=== PATIENT | male | born 1970 | race Caucasian/White ===

== ENCOUNTER 2019-10-25 10:33 | Outpatient (CLI) | payer MEDICARE, MEDICAID, SELFPAY ==
--- NOTE | 2019-10-25 10:41 | USCV_ITS ---
Atif Ellis Age: 49 Gender: M : 1970 Exam Date: 10/25/2019 11:09 Ordering Phys: Kulwinder Blandon NP Technologist: Osvaldo Nicole Exam Location: [facility] [place] Indication: LEFT CALF PAIN HISTORY: Lower extremity pain. PROCEDURES: Examined were the left greater saphenous, common femoral, femoral, profunda, popliteal, posterior tibial veins, and peroneal trunk.. FINDINGS: All veins examined appear free of thrombus. No filling defects on color Doppler flow analysis. Vein flow and caliber vary with respiration. Increase in venous flow with augmentation. All veins appear compressible.. CONCLUSIONS No evidence of left lower extremity DVT. Tyrese Corbin MD (Electronically Signed) Final Date: 25 Oct 2019 16:58 S
== END 2019-10-25 10:34 | disposition home or self-care (01) ==
LOC: RAD 10:38
PROVIDERS: PCP Internal Medicine; Visit Provider Nurse Practitioner Family
DX: M79.662 Pain in left lower leg (principal)
CPT/HCPCS: 93971

== ENCOUNTER 2019-11-07 08:35 | Outpatient (CLI) | payer MEDICARE, MEDICAID, SELFPAY ==
--- NOTE | 2019-11-07 | US_ITS ---
WS: [id number] ULTRASOUND-GUIDED PARACENTESIS CLINICAL INFORMATION: ASCITES COMPARISON: None. Procedure Informed consent: The risks, benefits, and alternatives of the procedure were discussed with the cole ent. Verbal and written consent was obtained. Timeout: A timeout was performed to confirm the correct patient, procedure, and site. Preparation: A suitable skin site was identified. The patient was prepped and draped in usual sterile fashion. Lidocaine 1% was used for local anesthesia. Catheter: 4 [place] One-step Yueh catheter. Side: Right Lower quadrant. Fluid Volume: 4300 ml Color: Cloudy yellow 50 cc sent for requested diagnostic tests. Complications: None. Patient disposition: Discharged from the department in stable condition. US/US paracentesis abd w [id number] IMPRESSION: Uncomplicated ultrasound-guided paracentesis. Removal of 4300 cc cloudy yellow fluid
[2019-11-07 09:14] LABS: INR 1.44 (0.8-1.2)
[2019-11-07 09:35] VITALS: BP 139/76; PULSE 75; RESP 18; TEMP 36.8; O2SAT 97
[2019-11-07 13:14] LABS: Body Fluid Polynuclear #Cells 0.025 10^3/uL; Body Fluid WBC 250 /uL; Monocytes # Body Fluid 0.225 10^3/uL; RBC, Body Fluid 0 10^3/uL (0-0)
[2019-11-07 13:21] LABS: Apprearance, Body Fluid CLEAR (CLEAR); Color, Body Fluid YELLOW (PALE YELLOW)
[2019-11-07 13:22] LABS: PATH Referral YES
[2019-11-07 17:50] LABS: Albumin Peritoneal Fluid 0.7 g/dL; Total Protein Peritoneal Fluid 1.2 g/dL
== END 2019-11-07 08:36 | disposition home or self-care (01) ==
LOC: RAD 08:38
PROVIDERS: PCP Internal Medicine; Visit Provider Nurse Practitioner Family
DX: R18.8 Other ascites (principal)
CPT/HCPCS: 36415; 49083; 80500; 82042; 83615; 84157; 85610; 87070; 87075; 87205; 88112; 88305; 89050

== ENCOUNTER 2019-12-26 07:33 | Outpatient (CLI) | payer MEDICARE, MEDICAID, SELFPAY ==
--- NOTE | 2019-12-26 | US_ITS ---
WS: [id number] ULTRASOUND-GUIDED DIAGNOSTIC AND THERAPEUTIC PARACENTESIS Procedure, risks, and complications have been explained to the patient. Consent is obtained. Utilizing aseptic technique and 1% buffered lidocaine, a small dermatome was made through which a 5 F rench Yueh catheter was inserted. Approximately 5200 ml of cloudy yellow peritoneal fluid was obtaine d without difficulty. No complications encountered. Specimen collected for analysis as requested. US/US paracentesis abd w [id number] IMPRESSION: Uncomplicated paracentesis yielding 5200 ml of peritoneal fluid. Peritoneal fluid collected for analysis as requested.
[2019-12-26 08:36] VITALS: BMI 45.4
[2019-12-26 08:40] VITALS: BP 121/68; PULSE 81; RESP 18; TEMP 37.1; O2SAT 94
[2019-12-26 08:50] LABS: INR 1.45 (0.8-1.2)
[2019-12-26 09:49] LABS: Body Fluid WBC 252 /uL; RBC, Body Fluid 1 10^3/uL (0-0)
[2019-12-26 09:58] LABS: Apprearance, Body Fluid CLOUDY (CLEAR); Color, Body Fluid PALE YELLOW (PALE YELLOW)
[2019-12-26 09:59] LABS: PATH Referral YES
[2019-12-26 10:18] LABS: Albumin Peritoneal Fluid 0.5 g/dL
== END 2019-12-26 07:34 | disposition home or self-care (01) ==
PROVIDERS: Nurse Practitioner Family; PCP Internal Medicine; Visit Provider Internal Medicine
DX: R18.8 Other ascites (principal)
CPT/HCPCS: 36415; 49083; 80500; 82042; 83615; 84157; 85610; 87070; 87075; 87205; 88112; 88305; 89050

== ENCOUNTER 2020-01-06 18:20 | Observation (INO) | payer MEDICARE, MEDICAID, SELFPAY ==
[2020-01-06 18:30] VITALS: BP 123/71; PULSE 88; RESP 14; TEMP 37.2; O2SAT 95; BMI 45.8
--- NOTE | 2020-01-06 19:17 | XRR_ITS ---
PROCEDURE INFORMATION: Exam: XR Right Ribs Exam date and time: 01/06/2020 7:48 PM Age: 49 years old Clinical indication: Injury or trauma; Fall; Initial encounter; Rib area; Blunt trauma (contusions or hematomas); Injury date: 01/03/2020; Injury details: PT fell fri, per PT he has had right sided pain/shoulder pain since. PT states he had fluid removed from lungs x2 wks TECHNIQUE: Imaging protocol: XR Right ribs. Views: 2 views. COMPARISON: CR Chest 1 [place] [id number] 06/09/2019 11:23 AM FINDINGS: Bones/joints: No radiographically visible rib fracture. Moderate arthrosis right AC joint. Mild scoliosis of the spine with degenerative disease. Lungs: Minimal discoid atelectasis left lung base. Pleural space: No visible pneumothorax or pleural effusion. Soft tissues: No visible subcutaneous emphysema. XR/XR ribs RT 2V* [id number] IMPRESSION: 1. No radiographically visible rib fracture. 2. Minimal discoid atelectasis left lung base.
[2020-01-06 19:59] LABS: Basophils # 0.1 10^3/uL (0.0-0.1); Basophils % 0.8 %; Eosinophils # 0.5 10^3/uL (0.0-0.8); Hematocrit 32.8 % (42.0-52.0); Lymphocytes # 0.9 10^3/uL (0.8-4.8); Lymphocytes % 11.9 %; Mean Corpuscular HGB Conc 33.5 g/dL (30.0-36.0); Mean Corpuscular Hemoglobin 34.1 pg (28.0-34.0); Mean Corpuscular Volume 101.5 fL (80-94); Mean Platelet Volume 11.8 fL (7.4-10.4); Monocytes # 0.7 10^3/uL (0.2-0.9); Neutrophils # 4.98 10^3/uL (1.8-7.7); Neutrophils % 69.9 %; Nucleated Red Blood Cells % 0 %; Platelet Count 101 10^3/cmm (130-400); Red Blood Count 3.23 10^6/uL (4.1-5.3); Red Cell Distribution Width 13.7 % (12.1-15.1); White Blood Count 7.1 10^3/uL (4.0-10.0)
[2020-01-06 20:05] LABS: INR 1.48 (0.8-1.2)
[2020-01-06 20:11] LABS: Alanine Aminotransferase 27 U/L (0-41); Alkaline Phosphatase 88 IU/L (40-130); Aspartate Amino Transferase 52 U/L (0-40); Chloride 96 mmol/L (98-107); Sodium 130 mmol/L (136-145)
--- NOTE | 2020-01-06 20:15 | CTR_ITS ---
PROCEDURE INFORMATION: Exam: CT Chest With Contrast Exam date and time: 01/06/2020 8:22 PM Age: 49 years old Clinical indication: Abdominal pain; Generalized; Chest pain; On breathing; Patient HX: PT fell mon01/03/2020 and hit rock on RT side. PT states x2 wks ago he had fluid removed from his lungs. PT refused to raise RT arm above head, due to shoulder injury. PT has a HX of liver cirrhosis; Additional info: Trauma/pain TECHNIQUE: Imaging protocol: Computed tomography of the chest with intravenous contrast. Radiation optimization: All CT scans at this facility use at least one of these dose optimization techniques: automated exposure control; mA and/or kV adjustment per patient size (includes targeted exams where dose is matched to clinical indication); or iterative reconstruction. Contrast material: OMNIPAQUE 300; Contrast volume: 95 ml; Contrast route: INTRAVENOUS (IV); COMPARISON: [place] Abdom[place] [id number] 06/09/2019 1:09 PM RADIATION DOSE METRICS: Total DLP (mGy-cm): 2601.42 FINDINGS: Lungs: No visible acute interstitial or alveolar airspace disease. Minimal dependent atelectasis left lung base. Evidence of antecedent granulomatous disease. Pleural space: Small left pleural effusion. Heart: Unremarkable. No cardiomegaly. No pericardial effusion. Aorta: Unremarkable. No aortic aneurysm. Lymph nodes: Unremarkable. No enlarged lymph nodes. Bones/joints: No visible fracture. Degenerative disease and degenerative disc disease of the spine. Soft tissues: Gynecomastia. No visible soft tissue contusion or seroma/hematoma. Other findings: Obesity. Increased quantum mottle artifact which will degrade image quality in detail assessment. IMPRESSION: 1. Small left pleural effusion. 2. No visible fracture. 3. Gynecomastia. 4. Minimal dependent atelectasis left lung base. 5. Antecedent granulomatous disease. PROCEDURE INFORMATION: Exam: CT Abdomen And Pelvis With Contrast Exam date and time: 01/06/2020 8:22 PM Age: 49 years old Clinical indication: Abdominal pain; Generalized; Chest pain; On breathing; Patient HX: PT fell mon01/03/2020 and hit rock on RT side. PT states x2 wks ago he had fluid removed from his lungs. PT refused to raise RT arm above head, due to shoulder injury. PT has a HX of liver cirrhosis; Additional info: Trauma/pain TECHNIQUE: Imaging protocol: Computed tomography of the abdomen and pelvis with intravenous contrast. Radiation optimization: All CT scans at this facility use at least one of these dose optimization techniques: automated exposure control; mA and/or kV adjustment per patient size (includes targeted exams where dose is matched to clinical indication); or iterative reconstruction. Contrast material: OMNIPAQUE 300; Contrast volume: 95 ml; Contrast route: INTRAVENOUS (IV); COMPARISON: [place] Abdom[place] [id number] 06/09/2019 1:09 PM RADIATION DOSE METRICS: Total DLP (mGy-cm): 2601.42 FINDINGS: Liver: Cirrhosis of the liver. No visible hepatic mass or cystic structure. Gallbladder and bile ducts: No formed cholelithiasis. No gross intra or extrahepatic biliary ectasia. Pancreas: Pancreas unremarkable. No visible pancreatic ductal ectasia. Spleen: Splenomegaly. Adrenals: Normal. No mass. Kidneys and ureters: Stable simple cortical cysts bilateral kidneys. No follow-up recommended. Stable nonobstructing calyceal nephrolithiasis foci inferior pole left kidney. Dimensions 9 mm by 7 mm. Stomach and bowel: Unremarkable. No obstruction. No mucosal thickening. Appendix: No evidence of appendicitis. Intraperitoneal space: Moderately large intraperitoneal ascites. Vasculature: Evidence of portal venous hypertension. Varices. The abdominal aorta is nonaneurysmal. Mild arterial sclerotic disease. Lymph nodes: No visible active mesenteric or retroperitoneal lymphadenopathy. Bladder: Unremarkable as visualized. Reproductive: Unremarkable as visualized. Bones/joints: No visible acute osseous abnormality. No visible fracture. Degenerative disease of the spine. Soft tissues: No visible subcutaneous contusion or seroma/hematoma within the field of view. Other findings: Obesity. Increased quantum mottle artifact which will degrade image quality in detail assessment. CT/CT chest abd pel w con* IMPRESSION: 1. Cirrhosis of the liver with portal hypertension and varices. 2. Splenomegaly. 3. Moderately large intraperitoneal ascites. 4. Left nephrolithiasis stable. Radiation Dose CTDIVOL = (mGy): DLP = 2601.42~2601.42 (mGy-cm)
--- NOTE | 2020-01-06 20:15 | W.ED.FALL ---
HPI - Fall General: Chief Complaint: Fall Stated Complaint: FALL Time Seen by Provider: 01/06/20 20:10 Source: patient and family Mode of arrival: ambulatory Limitations: no limitations History of Present Illness: HPI Narrative: Atif is a 49-year-old male who comes in complaining of right-sided flank pain. He states he fell on Monday and since that time has been having pain in the lower ribs in the right upper quadrant. Patient states that he is also retaining fluid from his liver disease. He denies any head injury or headache. He states he rolled his ankle and tripped and fell. He denies any injury to his back, other extremities, his head or neck. Associated symptoms-after fall: Reports abdominal pain and chest pain; Denies confusion, difficulty walking, headache(s), hematuria, lightheadedness, neck pain or vertigo Review of Systems Const: Denies: fever(s), chills, body aches, fatigue, malaise or diaphoresis Eyes: Denies: change in vision, blurry vision, blind spots, photophobia, eye discharge or eye redness ENMT: Denies: throat pain, odynophagia, hoarseness, swelling of lips/tongue, oral sores, ear or mastoid pain, ear discharge, change in hearing or nasal discharge Card: Reports: chest pain; Denies: palpitations, irregular heart rhythm, edema, lightheadedness, syncope, pre-syncope, dyspnea on exertion or orthopnea Resp: Denies: dyspnea, productive cough, non-productive cough, wheezing, hemoptysis or chest congestion GI: Reports: abdominal pain; Denies: nausea, vomiting, hematemesis, coffee ground emesis, heartburn, diarrhea, constipation, GI cramping, hematochezia or melena : Denies: flank pain, dysuria, urinary frequency, urinary urgency or hematuria Musc: Denies: neck pain, back pain, extremity pain, extremity swelling, joint pain, joint swelling, joint redness, joint warmth or joint stiffness Skin/Breast: Denies: rash, pruritus, erythema, skin tenderness or jaundice Neuro: Denies: headache(s), numbness in extremities, weakness in extremities, sensory changes, lack of coordination, difficulty walking, dizziness, vertigo, confusion, Slurred speech present or seizure-like activity Quinn/Lymph: Denies: easy bruising, easy bleeding, petechiae, purpura or enlarged lymph nodes All/Imm: Denies: urticaria, throat swelling, tongue swelling, facial swelling or acute wheezing PFSH ED PFSH: Medical History Degenerative disc disease Depression DM type 2 (diabetes mellitus, type 2) Hyperlipidemia Hypertension Liver cirrhosis Migraines Obstructive sleep apnea Physical Exam Const: COMMON NORMALS: no acute distress, patient oriented x3, no limitations, healthy appearing and well nourished GENERAL APPEARANCE: cooperative, well kempt and well developed HENMT: COMMON NORMALS: normocephalic, atraumatic, external ears normal, EAC's normal and Normal external nose present HEAD & SCALP: normal to inspection, normocephalic and atraumatic FACE & SINUS: normal facial exam and face symmetric NOSE: Normal external nose present and Normal nares present EXTERNAL EAR: Yes external ears normal EXTERNAL AUDITORY CANAL: EAC's normal MOUTH: Normal oral and palatal mucosa present, lip normal and tongue normal Eye: COMMON NORMALS: Equal, round and reactive pupils present and conjunctivae normal GENERAL EYE: appearance normal, both eyes and all related structures ALIGNMENT: Yes alignment normal PERIORBITAL: periorbital findings normal EYELID: eyelids normal CONJUNCTIVA: Yes conjunctivae normal SCLERA: sclerae normal PUPIL: Yes Equal, round and reactive pupils present Neck/C-Spine: COMMON NORMALS: full ROM, no lymphadenopathy, supple, no meningeal signs and no JVD GENERAL: Yes normal visual inspection and Yes trachea midline Chest: COMMONS NORMALS: normal inspection of the chest and normal palpation of entire chest wall Resp: COMMON NORMALS: normal respiratory effort, No retractions and No use of accessory muscles EFFORT & INSPECTION: Yes able to speak in complete sentences and Yes symmetric chest movement AUSCULTATION: no crackles, no rales, no rhonchi and no wheezes Cardio: COMMON NORMALS: no JVD, regular rate, regular rhythm, S1 normal heart sound present and S2 normal heart sound present RATE: regular rate RHYTHM: regular rhythm HEART SOUNDS: S1 normal heart sound present, S2 normal heart sound present, no click, no gallops, no murmurs, no rubs and abnormal split S2 GI: COMMON NORMALS: Soft to palpation and No hepatosplenomegaly present PALPATION: Yes Soft to palpation, Yes Tenderness to palpation present (GI) (Right-sided, mild), No Guarding due to palpation present (GI), No Rigid due to palpation, Yes No hepatosplenomegaly present, No Hernia present, No Palpable mass present and No Pulsatile mass present : COMMON NORMALS: Yes no CVA tenderness BLADDER/KIDNEY EXAM: Yes no CVA tenderness Back/Pelvis: COMMON NORMALS: no CVA tenderness, thoracic and lumbar spine normal to inspection, no thoracic nor lumbar tenderness and thoraco-lumbar ROM normal Extremity: COMMON NORMALS: normal to inspection, full ROM, capillary refill normal, no joint enlargement, no clubbing, cyanosis or edema and no calf tenderness Neuro: COMMON NORMALS: patient oriented x3, CN's II-XII intact bilaterally, moves all extremities, no focal motor deficits and no sensory deficits noted MENINGEAL SIGNS: Yes no meningeal signs SPEECH: speech normal Psych: COMMON NORMALS: mental status grossly normal, Normal thought process present, cooperative, normal affect, speech normal and activity/motor behavior normal APPEARANCE: Yes well kempt SPEECH: Yes normal speech THOUGHT PROCESS: Normal thought process present Skin: COMMON NORMALS: no rashes or lesions noted, turgor normal, no jaundice, no petechiae and no mottling GENERAL SKIN EXAM: no rashes or lesions noted and turgor normal Course Vital Signs: Vital signs: Vital Signs Temperature 99.0 F 01/06/20 18:30 Pulse Rate 88 01/06/20 18:30 Respiratory Rate 14 01/06/20 18:30 Blood Pressure 123/71 01/06/20 18:30 Pulse Oximetry 95 01/06/20 18:30 - Fall Lab Data: Labs: Lab Results 01/06/20 01/06/20 01/06/20 Range/Units 19:50 19:50 19:50 WBC 7.1 (4.0-10.0) 10^3/ uL RBC 3.23 L (4.1-5.3) 10^6/u L Hgb 11.0 L (11.7-16.6) g/dL Hct 32.8 L (42.0-52.0) % MCV 101.5 H (80-94) fL MCH 34.1 H (28.0-34.0) pg MCHC 33.5 (30.0-36.0) g/dL RDW 13.7 (12.1-15.1) % Plt Count 101 L (130-400) 10^3/c mm MPV 11.8 H (7.4-10.4) fL Neut % (Auto) 69.9 % Lymph % (Auto) 11.9 % [place] % (Auto) 10.0 % Eos % (Auto) 7.0 % Baso % (Auto) 0.8 % Neut # (Auto) 4.98 (1.8-7.7) 10^3/u L Lymph # (Auto) 0.9 (0.8-4.8) 10^3/u L [place] # (Auto) 0.7 (0.2-0.9) 10^3/u L Eos # (Auto) 0.5 (0.0-0.8) 10^3/u L Baso # (Auto) 0.1 (0.0-0.1) 10^3/u L Nucleated RBC % (a uto) 0 % Nucleated RBCs # 0.0 /100WBC PT 18.40 H (10.5-13.3) SECO NDS INR 1.48 H (0.8-1.2) APTT (23.9-36.7) SECO NDS Sodium 130 L (136-145) mmol/L Potassium 4.3 (3.5-5.1) mmol/L Chloride 96 L (98-107) mmol/L Carbon Dioxide 24 (22-29) mmol/L Anion Gap 14.3 (5-19) BUN 14 (6-20) mg/dL Creatinine 1.6 H (0.7-1.2) mg/dL GFR Calculation 46.0 L (90-130) mL/min Glucose 451 H (65-115) mg/dL Calculated Osmolal ity 286 (285-295) mOsm/k g Calcium 8.4 L (8.5-10.5) mg/dL Total Bilirubin 2.9 H (0.15-1.2) mg/dL AST 52 H (0-40) U/L ALT 27 (0-41) U/L Alkaline Phosphata se 88 (40-130) IU/L Total Protein 8.2 (6.6-8.7) g/dL Albumin 2.9 L (3.5-5.2) g/dL Globulin 5.3 H (1.3-4.6) g/dL 01/06/20 Range/Units 19:50 WBC (4.0-10.0) 10^3/ uL RBC (4.1-5.3) 10^6/u L Hgb (11.7-16.6) g/dL Hct (42.0-52.0) % MCV (80-94) fL MCH (28.0-34.0) pg MCHC (30.0-36.0) g/dL RDW (12.1-15.1) % Plt Count (130-400) 10^3/c mm MPV (7.4-10.4) fL Neut % (Auto) % Lymph % (Auto) % [place] % (Auto) % Eos % (Auto) % Baso % (Auto) % Neut # (Auto) (1.8-7.7) 10^3/u L Lymph # (Auto) (0.8-4.8) 10^3/u L [place] # (Auto) (0.2-0.9) 10^3/u L Eos # (Auto) (0.0-0.8) 10^3/u L Baso # (Auto) (0.0-0.1) 10^3/u L Nucleated RBC % (a uto) % Nucleated RBCs # /100WBC PT (10.5-13.3) SECO NDS INR (0.8-1.2) APTT 35.6 (23.9-36.7) SECO NDS Sodium (136-145) mmol/L Potassium (3.5-5.1) mmol/L Chloride (98-107) mmol/L Carbon Dioxide (22-29) mmol/L Anion Gap (5-19) BUN (6-20) mg/dL Creatinine (0.7-1.2) mg/dL GFR Calculation (90-130) mL/min Glucose (65-115) mg/dL Calculated Osmolal ity (285-295) mOsm/k g Calcium (8.5-10.5) mg/dL Total Bilirubin (0.15-1.2) mg/dL AST (0-40) U/L ALT (0-41) U/L Alkaline Phosphata se (40-130) IU/L Total Protein (6.6-8.7) g/dL Albumin (3.5-5.2) g/dL Globulin (1.3-4.6) g/dL Discharge Plan Discharge Condition: Good Prescriptions: No Action furosemide 40 mg Tablet 40 mg PO BID RF: 0 potassium chloride 10 mEq Capsule, Extended Release 10 meq PO BID RF: 0 cetirizine 10 mg Tablet 10 mg PO DAILY RF: 0 spironolactone 100 mg Tablet 100 mg PO DAILY RF: 0 Vitamin B-1 100 mg Tablet 100 mg PO DAILY RF: 0 ciprofloxacin HCl 500 mg Tablet 500 mg PO DAILY RF: 0 liothyronine 5 mcg Tablet 10 mcg PO DAILY RF: 0 pantoprazole 40 mg Tablet,Delayed Release (Dr/Ec) 40 mg PO BID RF: 0 levothyroxine 125 mcg Tablet 125 mcg PO DAILY RF: 0 gabapentin 300 mg Capsule 300 mg PO TID RF: 0 hydroxyzine HCl 25 mg Tablet 25 mg PO DAILY PRN (Reason: Anxiety) RF: 0 Vitamin D2 1,250 mcg (50,000 unit) Capsule 1,250 mcg PO Q7D RF: 0 Xifaxan 550 mg Tablet 550 mg PO BID RF: 0 Tresiba FlexTouch U-200 200 unit/mL (3 mL) Insulin Pen 18 unit SUBCUT TID RF: 0 Coding Level of Care Code ED Business Operations Director for Chg Fwd Exam Comprehensive
[2020-01-06 20:37] LABS: Blood Urea Nitrogen 14 mg/dL (6-20); Calcium 8.4 mg/dL (8.5-10.5); Carbon Dioxide 24 mmol/L (22-29); Total Bilirubin 2.9 mg/dL (0.15-1.2); Total Protein 8.2 g/dL (6.6-8.7)
[2020-01-06 20:43] LABS: Partial Thromboplastin Time 35.6 SECONDS (23.9-36.7)
[2020-01-06 20:47] LABS: Anion Gap 14.3 (5-19); Potassium 4.3 mmol/L (3.5-5.1)
[2020-01-06 20:50] LABS: Albumin Level 2.9 g/dL (3.5-5.2); Globulin 5.3 g/dL (1.3-4.6)
[2020-01-06 21:00] LABS: Glucose 451 mg/dL (65-115); Osmolality Calculated 286 mOsm/kg (285-295)
[2020-01-06 22:15] VITALS: RESP 16
[2020-01-06] MEDS: ondansetron 2 mg/ML SDV 2 mL 4 MG IVP (22:15)
[2020-01-06] MEDS: morphine 4 mg/mL SDV 1 mL IVP (22:15)
[2020-01-06] MEDS: iohexol 300 mg/mL 100 mL Btl IV (22:26)
--- NOTE | 2020-01-06 23:25 | PC.NURSE ---
PT WAITING CT, STATES HE IS HUNGRY. EXPLAINED TO PT HE CAN NOT EAT AT THIS TIME. PT VERBALIZED UNDERSTANDING.
--- NOTE | 2020-01-06 23:31 | P.HP_ITS ---
Providers/Chief Complaint Primary Care Provider: Penny Vali MD Chief Complaint: sob History of Present Illness Atif Ellis is a 49 year old male who requires recurrent abdominal paracentesis for nonalcoholic fatty liver cirrhosis coming in today for chief complaint of pain on inspiration and right upper quadrant pain. Patient is stating that on Monday he lost his balance, twisted his foot, fell and hit his right side of his body on the floor, since then he has been experiencing pain in his rib cage which gets worse on deep inspiration. Today he decided to come to the hospital because of worsening pleuritic chest pain. He has been on chronic antibiotic therapy since May 2019. I have checked his previous records, his cultures were negative, at home he does not check his temperature but endorses subjective fevers, is at the bedside who denies temperature above 100.4 (at home it stays around 98-99F). Patient is denying nausea, vomiting, diarrhea, chest pain, cough, sputum production. He is denying abdominal pain or association of pain with the food intake, he is denying change in his sleep c ycle. He has been evaluated by communication professor, he is not a candidate for liver transplant because of poorly controlled type 2 diabetes. He has been requiring recurrent paracentesis, his last paracentesis was 2 weeks ago (5.5 L was drained). Diagnosis in the ER revealed meld score 24 Normal hemodynamics, no rib fractures were identified on imaging Hospitalist services been requested to admit him for worsening pleuritic chest pain and recurrent ascites Review of Systems Const: Reports: chills, body aches, change in appetite, fatigue and malaise; Denies: fever(s) Eyes: Denies: change in vision ENMT: Denies: throat pain Card: Reports: dyspnea on exertion and orthopnea; Denies: chest pain or swelling of feet/ankles Resp: Reports: dyspnea and pain on inspiration; Denies: non-productive cough GI: Reports: abdominal pain and diarrhea; Denies: nausea, vomiting or constipation : Denies: flank pain, difficulty urinating or change in urine stream Musc: Denies: neck pain Skin/Breast: Reports: rash, lesions, changes in skin color, striae, change in hair and breast mass Neuro: Denies: headache(s) Psych: Reports: anxiety and depression Endo: Denies: polyuria Quinn/Lymph: Reports: easy bruising, petechiae and purpura All/Imm: Denies: urticaria Medications/Allergies Home Medications Medication Instructions Recorded Confirmed Last Taken Type cetirizine 10 mg PO DAILY 12/26/19 12/26/19 Unknown History ciprofloxacin HCl 500 mg PO DAILY 12/26/19 12/26/19 Unknown History ergocalciferol (vitamin D2) 1,250 mcg PO Q7D 12/26/19 12/26/19 Unknown History [Vitamin D2] furosemide 40 mg PO BID 12/26/19 12/26/19 Unknown History gabapentin 300 mg PO TID 12/26/19 12/26/19 Unknown History hydroxyzine HCl 25 mg PO DAILY PRN 12/26/19 12/26/19 Unknown History insulin degludec [Tresiba 18 unit SUBCUT TID 12/26/19 12/26/19 Unknown History FlexTouch U-200] levothyroxine 125 mcg PO DAILY 12/26/19 12/26/19 Unknown History liothyronine 10 mcg PO DAILY 12/26/19 12/26/19 Unknown History pantoprazole 40 mg PO BID 12/26/19 12/26/19 Unknown History potassium chloride 10 meq PO BID 12/26/19 12/26/19 Unknown History rifaximin [Xifaxan] 550 mg PO BID 12/26/19 12/26/19 Unknown History spironolactone 100 mg PO DAILY 12/26/19 12/26/19 Unknown History thiamine HCl (vitamin B1) [Vitamin 100 mg PO DAILY 12/26/19 12/26/19 Unknown History B-1] Allergies Allergy/AdvReac Type Severity Reaction Status Date / Time milk Allergy Unknown Verified 12/26/19 08:25 mushroom Allergy ALGY-Anaphy Verified 12/26/19 08:25 laxis PFSH Acute PFSH: Medical History Abnormal colonoscopy 2015 Small sigmoid adenomatous polyp 3 mm Rectal focal hyperplastic and focal adenomatous changes Alcohol abuse COPD (chronic obstructive pulmonary disease) Coronary artery disease Degenerative disc disease Depression DM type 2 (diabetes mellitus, type 2) Complicated with peripheral neuropathy Former smoker Gastric ulcer Acquired blood transfusion 2016 Hepatic encephalopathy Hyperlipidemia Hypertension Hypothyroidism Iron deficiency anemia Lactose intolerance Liver cirrhosis Migraines Obstructive sleep apnea PHT (portal hypertension) SBP (spontaneous bacterial peritonitis) On ciprofloxacin and Flagyl chronic therapy since 05/2019 however growth cultures negative from that admission, patient was discharged from the hospital around [place] and antibiotics were started empirically Splenomegaly Surgical History H/O esophagogastroduodenoscopy Cauterization of gastric ulcer 2019 colonoscopy in 2015 H/O toe surgery Social History Smoking and tobacco status: former smoker Alcohol intake: former Substance/Drug Use: never Household members: family Housing: House Marital status: Vitals/I&O/Wt Last Vital Signs Temp 99.0 F 01/06/20 18:30 Pulse 88 01/06/20 18:30 Resp 16 01/06/20 22:15 BP 123/71 01/06/20 18:30 Pulse Ox 95 01/06/20 18:30 Weight last 48 hrs Weight 140.614 kg Physical Exam Narrative: EXAM NARRATIVE: Head to toe examination Patient has icteric appearance Morbidly obese Currently saturating well, no active respiratory distress, has pleuritic chest pain Dixon's sign negative Multiple petechiae of abdominal wall, abdomen is soft, nontender, distended, ascites present, splenomegaly, loss of male pattern hair, gynecomastia Asterixis negative Alert oriented x3 GCS 15 Meld score 24 S1, S2 did not appreciate any murmur, Adequate breath sounds bilaterally with diminished airflow at the bases especially at the left side No lower extremity edema gangrene ulcer Appropriate mood and affect EOMI, PERRLA Neurologically nonfocal exam Pertinent negatives: No local signs of peritonitis No signs of sepsis No signs of hepatic encephalopathy at this point Data : 01/06/20 19:50 01/06/20 19:50 A&P Assessment and plan (1) Ascites of liver: Status: Acute (2) Liver cirrhosis: Status: Acute (3) DM type 2 (diabetes mellitus, type 2): Status: Acute (4) Jaundice: Status: Acute (5) Hyponatremia: Status: Acute (6) Chronic liver failure: Status: Acute (7) Splenomegaly: Status: Acute (8) PHT (portal hypertension): Status: Acute (9) Obstructive sleep apnea: Status: Acute (10) Thrombocytopenia: Status: Acute (11) Pleuritic chest pain: Status: Acute Additional A&P Information Pleuritic right upper quadrant pain No signs of rib fracture No signs of lung consolidation No acute signs of cholecystitis Patient is not septic No signs of SBP clinically, abdomen is soft, tenderness around hepatic region, pleuritic in nature, I believe right upper quadrant pain is secondary to stretch of liver capsule because of worsening ascites requiring recurrent paracentesis. Review of previous cultures was done, his body fluid cultures were negative, I would switch his Cipro and Flagyl to ceftriaxone at this point Paracentesis in the morning, avoid DVT prophylaxis with anticoagulation, Recurrent ascites with chronic liver disease Decompensated liver cirrhosis with active jaundice I believe this is gradual deterioration of synthetic function of liver with poor albumin, high PT, meld score 24 Not a good candidate for TIPS Poor candidate for liver transplant because of poorly controlled type 2 diabetes I would increase his Lasix to 60 mg twice a day continue same dose of spironolactone, continue rifaximin, lactulose No active asterixis or hepatic encephalopathy Check ammonia level Hyponatremia secondary to hypervolemia due to portal hypertension and hyperglycemia Corrected sodium around normal Continue diuretics No neurological signs Portal hypertension No active variceal bleeding Hemoglobin stable Chronic kidney disease Monitor for development of hepato-renal syndrome His baseline creatinine seems to be around 1.4-1.6 If his creatinine is worsening might do a trial of holding diuretics and monitor for development of hepatorenal syndrome, also point to be noted is 5.5 L of fluid drained 2 weeks ago, I am not sure if he received albumin after that which might have contributed to worsening creatinine Obstructive sleep apnea, CPAP Thrombocytopenia secondary to portal hypertension, active petechia purpura of abdominal wall, holding anticoagulation DVT prophylaxis for now DVT prophylaxis SCDs Cardiac consistent carb diet Poorly controlled type 2 diabetes, I would start him on Lantus high-dose sliding scale, for now I would use NovoLog 20 units, will check hemoglobin A1c level Full code Attestations Medical Necessity Statement*: Patient needs therapeutic abdominal paracentesis for symptomatic pleuritic chest pain because of stretch of liver capsule, I am anticipating discharge in less than 48 hours, currently meld score 24, carries guarded prognosis, at risk of hepatorenal syndrome which carries poor prognosis Time Spent in Patient Care: (>than 50% of time spent in counselling and/or direct pt care on unit) . 60mins Coding Level of Care Code Acute Advanced Nursing Professor for Chg Fwd Diagnoses Ascites of liver R18.8 Liver cirrhosis K74.60 DM type 2 (diabetes mellitus, type 2) E11.9 Jaundice R17 Hyponatremia E87.1 Chronic liver failure K72.10 Splenomegaly R16.1 PHT (portal hypertension) K76.6 Obstructive sleep apnea G47.33 Thrombocytopenia D69.6 Pleuritic chest pain R07.81
[2020-01-07] VITALS (8 sets, daily range): BP systolic 119–149; BP diastolic 57–84; PULSE 72–87; RESP 17–22; TEMP 36.4–37; O2SAT 90–97
--- NOTE | 2020-01-07 01:00 | PC.NURSE ---
Patient arrived to floor from ER. Patient sitting on side of bed for assessment, see separate documentation. Patient reports pain to right lateral ABD. VS WNL. Nurse to continue to monitor.
--- NOTE | 2020-01-07 01:37 | US_ITS ---
WS: [id number] ULTRASOUND-GUIDED THERAPEUTIC AND DIAGNOSTIC PARACENTESIS Procedure, risks, and complications have been explained to the patient. Consent is obtained. Utilizing aseptic technique and 1% buffered lidocaine, a small dermatome was made through which a 5 F rench Yueh catheter was inserted. Approximately 4800 ml of cloudy yellow peritoneal fluid was obtaine d without difficulty. No complications encountered. US/US paracentesis abd w [id number] IMPRESSION: Uncomplicated paracentesis yielding 4800 ml of peritoneal fluid. Specimen collected for analysis as requested.
[2020-01-07 01:48] LABS: Glucose Point of Care 308 mg/dL (70-110)
[2020-01-07] MEDS: insulin glargine 100 units/1 mL 20 UNIT SUBCUT (02:12)
[2020-01-07 03:01] LABS: Glucose Point of Care 339 mg/dL (70-110)
[2020-01-07 05:31] LABS: Basophils # 0.1 10^3/uL (0.0-0.1); Basophils % 0.9 %; Eosinophils # 0.6 10^3/uL (0.0-0.8); Eosinophils % 8.7 %; Hematocrit 28.8 % (42.0-52.0); Hemoglobin 9.9 g/dL (11.7-16.6); Lymphocytes # 1.1 10^3/uL (0.8-4.8); Lymphocytes % 16.4 %; Mean Corpuscular HGB Conc 34.4 g/dL (30.0-36.0); Mean Corpuscular Hemoglobin 35.1 pg (28.0-34.0); Mean Corpuscular Volume 102.1 fL (80-94); Mean Platelet Volume 11.4 fL (7.4-10.4); Monocytes # 0.7 10^3/uL (0.2-0.9); Monocytes % 10.3 %; Neutrophils # 4.14 10^3/uL (1.8-7.7); Neutrophils % 63.5 %; Nucleated Red Blood Cells % 0 %; Platelet Count 94 10^3/cmm (130-400); Red Blood Count 2.82 10^6/uL (4.1-5.3); Red Cell Distribution Width 13.7 % (12.1-15.1); White Blood Count 6.5 10^3/uL (4.0-10.0)
[2020-01-07 06:09] LABS: Ammonia 91 umol/L (16-60)
[2020-01-07 06:11] LABS: Alanine Aminotransferase 23 U/L (0-41); Albumin Level 2.6 g/dL (3.5-5.2); Alkaline Phosphatase 76 IU/L (40-130); Anion Gap 11.1 (5-19); Aspartate Amino Transferase 44 U/L (0-40); Blood Urea Nitrogen 16 mg/dL (6-20); Calcium 9.1 mg/dL (8.5-10.5); Carbon Dioxide 27 mmol/L (22-29); Chloride 98 mmol/L (98-107); Globulin 4.7 g/dL (1.3-4.6); Glomerular Filtration Rate 42.9 mL/min (90-130); Glucose 296 mg/dL (65-115); Osmolality Calculated 281 mOsm/kg (285-295); Potassium 4.1 mmol/L (3.5-5.1); Sodium 132 mmol/L (136-145); Total Bilirubin 2.5 mg/dL (0.15-1.2); Total Protein 7.3 g/dL (6.6-8.7)
[2020-01-07 06:21] LABS: Glucose Point of Care 289 mg/dL (70-110)
[2020-01-07 06:40] LABS: Estmated Average Glucose 286; Hemoglobin A1C 11.6 % (4.0-6.0)
--- NOTE | 2020-01-07 06:41 | PC.NURSE ---
Shift Summary No acute events overnight. Patient put on CPap by RT. Patient tolerated well. Patient rested with eyes closed, even, non-labored breathing for the remainder of the night. No needs identified at this time. Nurse to continue to monitor.
[2020-01-07] MEDS: albumin 12.5 GM/250 ML VIAL IV (07:30)
[2020-01-07] MEDS: liothyronine 5 mcg Tablet 10 MCG PO (07:39)
[2020-01-07] MEDS: thiamine 100 mg Tablet PO (07:40)
[2020-01-07] MEDS: FUROsemide 40 mg Tablet 60 MG PO (07:41)
[2020-01-07] MEDS: potassium chloride ER 10 mEq Tablet PO (07:41)
[2020-01-07] MEDS: pantoprazole DR 40 mg Tablet PO (07:41)
[2020-01-07] MEDS: lactulose oral liq 20 gm/30 mL UDC 30 GM PO (07:43)
[2020-01-07] MEDS: spironolactone 25 mg Tablet 100 MG PO (07:44)
[2020-01-07] MEDS: levothyroxine 125 mcg Tablet PO (07:44)
[2020-01-07] MEDS: cefTRIAXone 1,000 MG in sodium chloride 0.9% (plus) 50 ML 100 MG IV (09:03)
[2020-01-07] MEDS: oxyCODONE 5 mg IR Tab/Cap PO (09:07)
[2020-01-07 10:54] LABS: Glucose Point of Care 247 mg/dL (70-110)
--- NOTE | 2020-01-07 11:05 | PC.CHAP ---
Pastoral Care Encounter/Spiritual Assessment Type of Contact [] Declined applications programmer visit [] Patient/Family/Request visit [] Outpatient visit [] Follow-up visit [] Physician referral [] Code/Alert [x] Routine visit [] Staff referral [] Actively dying [] Patient sleeping [] Family support [] [] Out of room [] Palliative care [] [x] Receiving care in room [] Pre-surgical visit [] Trauma [] Long length of stay [] ICU visit [] Other: Relational/Emotional Strength [x] Patient feels connected with others/family/visitors/staff [] Distress [] Loneliness/isolation [] Abandonment Spirituality of Patient [x] Person of Marissa [] Attends Lutheran of their Marissa x] Believes in Prayer [] Reads Bible or Worship materials [x] There are Spiritual issues to be addressed Assistant Construction Superintendent Interventions [x] Prayer [x] Active listening [x] Non-anxious presence [x] Spiritual/emotional support [] Crisis/trauma care [x] Spiritual counseling [] Bereavement support [] Provided bereavement packet [] Provided Bible/devotional materials [] Provided toy/stuffed animal, coloring book to patient or family member [] Provided Communion [] Anointing/[place] [] Salvation [x] Completed spiritual assessment [] Other: Impact on Illness or Injury [] Angry [] Fearful [] Anxious [] Often cries [] Exhaustion [] Unable to work [] Unable to attend yazidism [] Unable to walk/stand [] Unable to read [] Unable to drive [] Unable to eat/drink [] Unable to sleep [] Unable to be with family [] Patient intubated [] Other: Summary Lever lots of other health problems good attitude, going to able to home Time spent with patient 10 mins
[2020-01-07 12:15] LABS: Body Fluid WBC 219 /uL; RBC, Body Fluid 2 10^3/uL (0-0)
[2020-01-07 12:18] LABS: Apprearance, Body Fluid CLOUDY (CLEAR); Color, Body Fluid PALE YELLOW (PALE YELLOW)
--- NOTE | 2020-01-07 13:22 | P.DS_ITS ---
Discharge Providers Date of Admission: 01/07/20 00:01 Date of Discharge: January 07, 2020 Attending Provider at Admission: Mikal Farley MD Attending Provider at Discharge: Viri Harvey MD Consults: None Primary Care Provider: Penny Vail MD Diagnoses at Discharge Discharge Diagnosis (1) Ascites of liver: Status: Acute Problem details: -s/p paracentesis with removal of about 4.6 L. Had prior paracentesis about 2 weeks ago with removal of 5.2 L -Continue dual diuretics, rifaximin -Has prior history of SBP in 05/2019 and has been on empiric ciprofloxacin and Flagyl since; has been covered with ceftriaxone during hospital stay (2) Liver cirrhosis: Status: Chronic Problem details: -has known hx of liver cirrhosis with portal HTN and varices -is requiring more frequent paracentesis due to persistent ascites -not deemed an appropriate transplant candidate due to poorly controlled IDDM type II -follows up with [employer] [facility] [employer] supervisor in [place] but has had difficulty traveling there due to pain and with ongoing pandemic -MELD-Na score-23 with a 14-15% estimated 90-day mortality -ammonia-91, alert and oriented x 3; on lactulose -Coags noted with INR 1.48 Qualifiers: Hepatic cirrhosis type: unspecified hepatic cirrhosis Ascites presence: with ascites Qualified Code(s): K74.60 - Unspecified cirrhosis of liver; R18.8 - Other ascites (3) Jaundice: Status: Acute Problem details: -Due to liver cirrhosis -LFTs noted (4) DM type 2 (diabetes mellitus, type 2): Status: Chronic Problem details: -Complicated with peripheral neuropathy -Poorly controlled with A1c of 11.6 -Continue insulin regimen Qualifiers: Diabetes mellitus custodial insulin use: with custodial use Diabetes mellitus complication status: with neurologic complications Diabetes mellitus complication detail: with polyneuropathy Qualified Code(s): E11.42 - Type 2 diabetes mellitus with diabetic polyneuropathy; Z79.4 - long-term (current) use of insulin (5) Hyponatremia: Status: Acute Problem details: -Appears to be an intermittently chronic issue, sodium improved -Likely due to hypovolemia from underlying liver cirrhosis (6) Chronic liver failure: Status: Chronic Problem details: -As noted above Qualifiers: Hepatic coma status: without hepatic coma Qualified Code(s): K72.10 - Chronic hepatic failure without coma (7) Splenomegaly: Status: Chronic Problem details: -noted on imaging, mild (8) PHT (portal hypertension): Status: Chronic (9) Obstructive sleep apnea: Status: Chronic Problem details: -CPAP qhs (10) Thrombocytopenia: Status: Chronic Problem details: -Platelet count at baseline -No bleeding (11) Pleuritic chest pain: Status: Resolved Other Information Additional DC diagnoses/information: -Morbid obesity: BMI-46 kg/m2 -Hypothyroidism, continue thyroid replacement -HTN -Hyperlipidemia -CAD hx -GERD; on PPI; hx of bleeding gastric ulcer in 2017 -Chronic pain, DJD; pain control as needed -Anxiety/depression -Chronic macrocytic anemia; baseline Hg is around 10; due to liver cirrhosis but has had iron deficiency in the past -CKD stage 2-3; baseline Cr is around 1-1.6 Reason for Visit Reason for Visit: sob Hospital Course Hospital Course: Patient was admitted to the medical surgical floor and paracentesis requested secondary to moderately large ascites on imaging and patient's complaints of worsening shortness of breath and right upper quadrant pain. Paracentesis has been done with removal of approximately 5 L. He had a previous large-volume paracentesis approximately 2 weeks ago with removal of 5.2 L. All of this is due to liver cirrhosis secondary to nonalcoholic fatty liver disease. He follows up with a [employer] supervisor in [place] and reportedly is not a candidate for liver transplant because of poorly controlled insulin-dependent diabetes. His significant other provides full-time care for him. He reports feeling well following paracentesis and would like to go home today. Counseled on need to seek medical attention immediately should he have any worsening sym ptoms particularly in terms of worsening shortness of breath, nausea and vomiting, worsening abdominal discomfort or pain. He appears slightly jaundiced with noted LFT elevation. A1c is 11.6 reflecting poorly controlled diabetes. He was covered with insulin including mealtime insulin. Patient did receive some albumin. Discharge Summary: -Patient to follow-up with her primary care provider within 1 week Physical Exam Const: COMMON NORMALS: no acute distress and patient oriented x3 GENERAL APPEARANCE: cooperative and comfortable NUTRITIONAL APPEARANCE: obese morbidly obese ORIENTATION/CONSCIOUSNESS: Yes awake OTHER: -very pleasant HENMT: COMMON NORMALS: normocephalic, atraumatic, hearing grossly normal bilaterally and moist oral mucous membranes HEAD & SCALP: normocephalic and atraumatic Eye: COMMON NORMALS: Equal, round and reactive pupils present, EOMs intact bilaterally and conjunctivae normal CONJUNCTIVA: Yes conjunctivae normal PUPIL: Yes Equal, round and reactive pupils present Neck/C-Spine: COMMON NORMALS: full ROM GENERAL: Yes normal visual inspection and Yes trachea midline Resp: COMMON NORMALS: normal respiratory effort, No retractions, No use of accessory muscles and clear to auscultation bilaterally EFFORT & INSPECTION: Yes able to speak in complete sentences, Yes symmetric chest movement and No tachypneic AUSCULTATION: clear to auscultation bilaterally Cardio: COMMON NORMALS: regular rate, regular rhythm, S1 normal heart sound present, S2 normal heart sound present and No murmurs present (Cardio) RATE: regular rate RHYTHM: regular rhythm HEART SOUNDS: S1 normal heart sound p resent and S2 normal heart sound present GI: COMMON NORMALS: Normal to inspection, nondistended, normoactive bowel sounds present, Soft to palpation and non-tender INSPECTION: Yes central obesity PALPATION: Yes Soft to palpation Extremity: COMMON NORMALS: normal to inspection, full ROM and no clubbing, cyanosis or edema; negative for no pedal edema Neuro: COMMON NORMALS: patient oriented x3, moves all extremities, no focal motor deficits and no sensory deficits noted Psych: COMMON NORMALS: mental status grossly normal, Normal thought process present, cooperative, normal affect and speech normal SPEECH: Yes normal speech THOUGHT PROCESS: Normal thought process present Skin: COMMON NORMALS: no rashes or lesions noted, no petechiae and no mottling GENERAL SKIN EXAM: no rashes or lesions noted and jaundice Discharge Data Data Completed and Pending: Completed Studies During Hospitalization Category Date Time Status CT chest abd pel w con* Stat Cat Scan 01/06/20 20:15 Completed XR ribs RT 2V* 71 100 Stat Exams 01/06/20 19:17 [place] w [id number] Routine Ultrasound 01/07/20 01:37 Completed Pending at discharge Category Date Time Status Albumin Peritonea l Fluid Routine Lab 01/06/20 11:45 Received Amylase Body Flui d Routine Lab 01/06/20 11:45 Received Body Fluid Cultur e Routine Lab 01/07/20 10:30 Received Glucose Peritonea l Fluid Routine Lab 01/07/20 10:30 Received Total Protein Bod y Fluid Routine Lab 01/07/20 10:30 Received Labs from last 24 hours 01/07/20 01/07/20 01/07/20 19:50 10:47 10:30 WBC RBC Hgb Hct MCV MCH MCHC RDW Plt Count MPV Neut % (Auto) Lymph % (Auto) [place] % (Auto) Eos % (Auto) Baso % (Auto) Neut # (Auto) Lymph # (Auto) [place] # (Auto) Eos # (Auto) Baso # (Auto) Nucleated RBC % (a uto) Nucleated RBCs # PT INR APTT Sodium Potassium Chloride Carbon Dioxide Anion Gap BUN Creatinine GFR Calculation Glucose POC Glucose 247 Estimat Average Gl ucose 286 Hemoglobin A1c 11.6 H Calculated Osmolal ity Calcium Total Bilirubin AST ALT Alkaline Phosphata se Ammonia Total Protein Albumin Globulin Fluid Color Pale yellow Fluid Appearance Cloudy Fluid WBC 219 Fluid RBC 2 H Fld Polynuclear WB Cs % 7.800 Fl Mononuclear % A uto 92.200 01/07/20 01/07/20 01/07/20 06:18 04:49 04:49 WBC RBC Hgb Hct MCV MCH MCHC RDW Plt Count MPV Neut % (Auto) Lymph % (Auto) [place] % (Auto) Eos % (Auto) Baso % (Auto) Neut # (Auto) Lymph # (Auto) [place] # (Auto) Eos # (Auto) Baso # (Auto) Nucleated RBC % (a uto) Nucleated RBCs # PT INR APTT Sodium 132 L Potassium 4.1 Chloride 98 Carbon Dioxide 27 Anion Gap 11.1 BUN 16 Creatinine 1.7 H GFR Calculation 42.9 L Glucose 296 H POC Glucose 289 Estimat Average Gl ucose Hemoglobin A1c Calculated Osmolal ity 281 L Calcium 9.1 Total Bilirubin 2.5 H AST 44 H ALT 23 Alkaline Phosphata se 76 Ammonia 91 H Total Protein 7.3 Albumin 2.6 L Globulin 4.7 H Fluid Color Fluid Appearance Fluid WBC Fluid RBC Fld Polynuclear WB Cs % Fl Mononuclear % A uto 01/07/20 01/07/20 01/07/20 04:49 02:56 01:44 WBC 6.5 RBC 2.82 L Hgb 9.9 L Hct 28.8 L MCV 102.1 H MCH 35.1 H MCHC 34.4 RDW 13.7 Plt Count 94 L MPV 11.4 H Neut % (Auto) 63.5 Lymph % (Auto) 16.4 [place] % (Auto) 10.3 Eos % (Auto) 8.7 Baso % (Auto) 0.9 Neut # (Auto) 4.14 Lymph # (Auto) 1.1 [place] # (Auto) 0.7 Eos # (Auto) 0.6 Baso # (Auto) 0.1 Nucleated RBC % (a uto) 0 Nucleated RBCs # 0.0 PT INR APTT Sodium Potassium Chloride Carbon Dioxide Anion Gap BUN Creatinine GFR Calculation Glucose POC Glucose 339 308 Estimat Average Gl ucose Hemoglobin A1c Calculated Osmolal ity Calcium Total Bilirubin AST ALT Alkaline Phosphata se Ammonia Total Protein Albumin Globulin Fluid Color Fluid Appearance Fluid WBC Fluid RBC Fld Polynuclear WB Cs % Fl Mononuclear % A uto 01/06/20 01/06/20 01/06/20 19:50 19:50 19:50 WBC RBC Hgb Hct MCV MCH MCHC RDW Plt Count MPV Neut % (Auto) Lymph % (Auto) [place] % (Auto) Eos % (Auto) Baso % (Auto) Neut # (Auto) Lymph # (Auto) [place] # (Auto) Eos # (Auto) Baso # (Auto) Nucleated RBC % (a uto) Nucleated RBCs # PT 18.40 H INR 1.48 H APTT 35.6 Sodium 130 L Potassium 4.3 Chloride 96 L Carbon Dioxide 24 Anion Gap 14.3 BUN 14 Creatinine 1.6 H GFR Calculation 46.0 L Glucose 451 H POC Glucose Estimat Average Gl ucose Hemoglobin A1c Calculated Osmolal ity 286 Calcium 8.4 L Total Bilirubin 2.9 H AST 52 H ALT 27 Alkaline Phosphata se 88 Ammonia Total Protein 8.2 Albumin 2.9 L Globulin 5.3 H Fluid Color Fluid Appearance Fluid WBC Fluid RBC Fld Polynuclear WB Cs % Fl Mononuclear % A uto 01/06/20 19:50 WBC 7.1 RBC 3.23 L Hgb 11.0 L Hct 32.8 L MCV 101.5 H MCH 34.1 H MCHC 33.5 RDW 13.7 Plt Count 101 L MPV 11.8 H Neut % (Auto) 69.9 Lymph % (Auto) 11.9 [place] % (Auto) 10.0 Eos % (Auto) 7.0 Baso % (Auto) 0.8 Neut # (Auto) 4.98 Lymph # (Auto) 0.9 [place] # (Auto) 0.7 Eos # (Auto) 0.5 Baso # (Auto) 0.1 Nucleated RBC % (a uto) 0 Nucleated RBCs # 0.0 PT INR APTT Sodium Potassium Chloride Carbon Dioxide Anion Gap BUN Creatinine GFR Calculation Glucose POC Glucose Estimat Average Gl ucose Hemoglobin A1c Calculated Osmolal ity Calcium Total Bilirubin AST ALT Alkaline Phosphata se Ammonia Total Protein Albumin Globulin Fluid Color Fluid Appearance Fluid WBC Fluid RBC Fld Polynuclear WB Cs % Fl Mononuclear % A uto Vitals: Last Vital Signs Temp 98.3 F 01/07/20 11:24 Pulse 72 01/07/20 11:24 Resp 18 01/07/20 11:24 BP 142/84 01/07/20 11:24 Pulse Ox 96 01/07/20 11:24 Discharge Plan Discharge Patient Disposition: Home, Self-Care Condition: Stable Prescriptions: New lactulose 20 gram/30 mL Solution 30 g PO TID Qty: 237 RF: 0 Continued furosemide 40 mg Tablet 40 mg PO BID RF: 0 potassium chloride 10 mEq Capsule, Extended Release 10 meq PO BID RF: 0 cetirizine 10 mg Tablet 10 mg PO DAILY RF: 0 spironolactone 100 mg Tablet 100 mg PO DAILY RF: 0 thiamine HCl (vitamin B1) [Vitamin B-1] 100 mg Tablet 100 mg PO DAILY RF: 0 ciprofloxacin HCl 500 mg Tablet 500 mg PO DAILY RF: 0 liothyronine 5 mcg Tablet 10 mcg PO DAILY RF: 0 pantoprazole 40 mg Tablet,Delayed Release (Dr/Ec) 40 mg PO BID RF: 0 levothyroxine 125 mcg Tablet 125 mcg PO DAILY RF: 0 gabapentin 300 mg Capsule 300 mg PO TID RF: 0 hydroxyzine HCl 25 mg Tablet 25 mg PO DAILY PRN (Reason: Anxiety) RF: 0 ergocalciferol (vitamin D2) [Vitamin D2] 1,250 mcg (50,000 unit) Capsule 1,250 mcg PO Q7D RF: 0 Xifaxan 550 mg Tablet 550 mg PO BID RF: 0 Tresiba FlexTouch U-200 200 unit/mL (3 mL) Insulin Pen 18 unit SUBCUT TID RF: 0 Discharge Orders: Discharge Order (Routine); Ordered 01/07/20 Ordered By: Viri Harvey Referrals: Penny Vail MD [Primary Care Provider] - 01/10/20 10:30 am (Post hospital discharge follow up. Had paracentesis done with removal of about 5 L. appointment with sae lawson) Discharge Diet: Diabetic Discharge Activity: Increase activity as tolerated Activity Restrictions/Additional Instructions: -Please seek medical attention immediately should symptoms worsen Discharge Attestations Time Spent in Discharge Care*: greater than 30 min Specific Discharge Activities: Specific discharge activities: educating patient, documenting/other paperwork and evaluating patient/reviewing data Status at Discharge: Cognitive status at discharge: cognitively intact , Behavioral status at discharge: cooperative and dependent in ADL's , Overall status at discharge: patient is back to baseline Quality Metrics Clinical Quality Measures During this hospital stay, did patient experience: None Coding Level of Care Code Acute Fre[employer] 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 g Fwd Diagnoses Ascites of liver R18.8 Liver cirrhosis K74.60; R18.8 Hepatic cirrhosis type: unspecified hepatic cirrhosis Ascites presence: with ascites Jaundice R17 DM type 2 (diabetes mellitus, type 2) E11.42; Z79.4 Diabetes mellitus custodial insulin use: with manager terminal use Diabetes mellitus complication status: with neurologic complications Diabetes mellitus complication detail: with polyneuropathy Hyponatremia E87.1 Chronic liver failure K72.10 Hepatic coma status: without hepatic coma Splenomegaly R16.1 PHT (portal hypertension) K76.6 Obstructive sleep apnea G47.33 Thrombocytopenia D69.6 Pleuritic chest pain R07.81
[2020-01-07 13:57] LABS: Albumin Peritoneal Fluid 0.2 g/dL; Amylase Body Fluid 11 U/L
[2020-01-07 13:57] LABS: Total Protein Body Fluid 1 g/dL
--- NOTE | 2020-01-10 16:15 | PC.RESP ---
PULMONARY REHAB INFORMATION SENT TO PATIENT.
== END 2020-01-07 14:09 | disposition home or self-care (01) ==
LOC: ER 20:10 → MEDSURG 01-07 01:04
PROVIDERS: Emergency Medicine; Admitting Provider Internal Medicine; PCP Internal Medicine; Visit Provider Family Medicine
DX: R18.8 Other ascites (principal); K74.60 Unspecified cirrhosis of liver; E87.1 Hypo-osmolality and hyponatremia; K72.10 Chronic hepatic failure without coma; R16.1 Splenomegaly, not elsewhere classified; K76.6 Portal hypertension; G73.3 Myasthenic syndromes in other diseases classified elsewhere; G47.33 Obstructive sleep apnea (adult) (pediatric); D69.6 Thrombocytopenia, unspecified; R07.81 Pleurodynia; E11.42 Type 2 diabetes mellitus with diabetic polyneuropathy; Z79.4 Long term (current) use of insulin; J44.9 Chronic obstructive pulmonary disease, unspecified; I25.10 Atherosclerotic heart disease of native coronary artery without angina pectoris; Z87.11 Personal history of peptic ulcer disease; E78.5 Hyperlipidemia, unspecified; E03.9 Hypothyroidism, unspecified; Z87.891 Personal history of nicotine dependence; I12.9 Hypertensive chronic kidney disease with stage 1 through stage 4 chronic kidney disease, or unspecified chronic kidney disease; E11.22 Type 2 diabetes mellitus with diabetic chronic kidney disease; N18.3 Chronic kidney disease, stage 3 (moderate); K21.9 Gastro-esophageal reflux disease without esophagitis; F41.9 Anxiety disorder, unspecified; F32.9 Major depressive disorder, single episode, unspecified
CPT/HCPCS: 12345; 36415; 36416; 49083; 71100; 71260; 74177; 80053; 80500; 82042; 82140; 82150; 82945; 82962; 83036; 84157; 85025; 85610; 85730; 87070; 87075; 87205; 89050; 94660; 96372; 96375; 99282; G0378; J0696; J1815 ×2; J2270; J2405; P9041; Q9967

== ENCOUNTER 2020-01-22 08:22 | Emergency (ER) | payer MEDICARE, MEDICAID, SELFPAY ==
[2020-01-22] VITALS (7 sets, daily range): BP systolic 120–166; BP diastolic 53–104; PULSE 79–84; RESP 16–22; TEMP 36.8; O2SAT 96–98; BMI 41.3
--- NOTE | 2020-01-22 08:51 | XRR_ITS ---
PROCEDURE INFORMATION: Exam: XR Chest, 1 View Exam date and time: 01/22/2020 9:03 AM Age: 49 years old Clinical indication: Chest pain; Type not specified; Additional info: Chest painx3 days TECHNIQUE: Imaging protocol: XR of the chest Views: 1 view. COMPARISON: CR Chest 1 [place] [id number] 06/09/2019 11:23 AM FINDINGS: Lungs: Hypoinflation. Asymmetric left basilar airspace/pleural disease , partially obscuring the lateral left hemidiaphragm. Heart/Mediastinum: No cardiomegaly. Bones/joints: Degenerative change. XR/XR chest 1V portable [id number] IMPRESSION: Asymmetric left basilar airspace/pleural disease , partially obscuring the lateral left hemidiaphragm.
--- NOTE | 2020-01-22 08:51 | W.ED.ABDPA2 ---
HPI - Abdominal Pain General: Chief Complaint: Shortness of Breath/Dyspnea Stated Complaint: SOB Time Seen by Provider: 01/22/20 08:30 Source: patient and family Mode of arrival: ambulatory Limitations: no limitations History of Present Illness: HPI narrative: Patient is a 49-year-old male who presents to ED today requesting fluid be drained from his abdomen. Patient tells me he has a history of liver cirrhosis/portal HTN and has been requiring frequent paracenteses. Patient states his last paracentesis was 2 weeks ago when they removed approximately 5 L of fluids. According to documentation, patient is not a candidate for liver transplant due to poorly controlled diabetes. He at one point was seeing a project assistant in [place] but has not seen them in over a year. Reports the excess fluid today is making him feel short of breath. MD elicited complaint: abdominal pain Pertinent past history: other (liver cirrhosis ) Onset (ago): day(s) Location: Diffuse Severity: severe Radiation: none Exacerbating factors: nothing Relieving factors: other (paracentesis ) Associated Symptoms: Denies change in bowel habits, chills, diarrhea, fever(s), nausea, syncope and vomiting Review of Systems Const: Denies: fever(s), chills or body aches Card: Denies: chest pain, palpitations, irregular heart rhythm, lightheadedness or syncope Resp: Reports: dyspnea; Denies: productive cough, non-productive cough or chest congestion GI: Reports: abdominal pain; Denies: nausea, vomiting, diarrhea or change in bowel habits Musc: Denies: neck pain or back pain Neuro: Denies: headache(s) PFS ED PFSH: Medical History (Updated 01/22/20 @ 12:44 by IRENE Garcia) Abnormal colonoscopy 2015 Small sigmoid adenomatous polyp 3 mm Rectal focal hyperplastic and focal adenomatous changes Alcohol abuse Ascites of liver -s/p paracentesis with removal of about 4.6 L. Had prior paracentesis about 2 weeks ago with removal of 5.2 L -Continue dual diuretics, rifaximin -Has prior history of SBP in 05/2019 and has been on empiric ciprofloxacin and Flagyl since; has been covered with ceftriaxone during hospital stay Chronic kidney disease Chronic liver failure -As noted above COPD (chronic obstructive pulmonary disease) Coronary artery disease Degenerative disc disease Depression DM type 2 (diabetes mellitus, type 2) -Complicated with peripheral neuropathy -Poorly controlled with A1c of 11.6 -Continue insulin regimen Former smoker Gastric ulcer Acquired blood transfusion 2017 Hepatic encephalopathy Hyperlipidemia Hypertension Hyponatremia -Appears to be an intermittently chronic issue, sodium improved -Likely due to hypovolemia from underlying liver cirrhosis Hypothyroidism Iron deficiency anemia Jaundice -Due to liver cirrhosis -LFTs noted Lactose intolerance Liver cirrhosis -has known hx of liver cirrhosis with portal HTN and varices -is requiring more frequent paracentesis due to persistent ascites -not deemed an appropriate transplant candidate due to poorly controlled IDDM type II -follows up with project assistant in [place] but has had difficulty traveling there due to pain and with ongoing pandemic -MELD-Na score-23 with a 14-15% estimated 90-day mortality -ammonia-91, alert and oriented x 3; on lactulose -Coags noted with INR 1.48 Migraines Obstructive sleep apnea -CPAP qhs PHT (portal hypertension) SBP (spontaneous bacterial peritonitis) On ciprofloxacin and Flagyl chronic therapy since 05/2019 however growth cultures negative from that admission, patient was discharged from the hospital around [place] and antibiotics were started empirically Splenomegaly -noted on imaging, mild Thrombocytopenia -Platelet count at baseline -No bleeding Surgical History H/O esophagogastroduodenoscopy Cauterization of gastric ulcer 2018 colonoscopy in 2015 H/O toe surgery Social History Smoking and tobacco status: former smoker Alcohol intake: former Household members: family Housing: House Marital status: Physical Exam Const: COMMON NORMALS: patient oriented x3, no limitations and alert NUTRITIONAL APPEARANCE: obese HENMT: COMMON NORMALS: normocephalic and atraumatic HEAD & SCALP: normocephalic and atraumatic Resp: COMMON NORMALS: normal respiratory effort and clear to auscultation bilaterally EFFORT & INSPECTION: Yes able to speak in complete sentences AUSCULTATION: clear to auscultation bilaterally Cardio: COMMON NORMALS: regular rate and regular rhythm RATE: regular rate RHYTHM: regular rhythm GI: INSPECTION: Yes Abdominal wall edema, Yes abdominal distension and Yes Fluid wave present PALPATION: Yes Firmness to palpation present (GI) PERCUSSION: Fluid wave present Extremity: COMMON NORMALS: normal to inspection Neuro: COMMON NORMALS: patient oriented x3 SENSORIUM/ORIENTATION: Yes alert Skin: OTHER: ecchymosis to abdomen from SQ insulin Course Vital Signs: Vital signs: Vital Signs Temperature 98.3 F 01/22/20 10:56 Pulse Rate 81 01/22/20 11:52 Respiratory Rate 18 01/22/20 11:52 Blood Pressure 128/63 01/22/20 11:52 Pulse Oximetry 97 01/22/20 11:52 MDM - Abdominal Pain MDM Narrative: Medical decision making narrative: Patient here requesting a therapeutic paracentesis. Patient has a history of liver cirrhosis/ascites, diabetes, HTN, hyperlipidemia, CKD. He apparently was supposed to have this paracentesis performed as an outpatient however missed his PCP appointment this afternoon and they were going to schedule it during that appointment. Primary care did let us know that patient has a follow-up with his project assistant on 01/27 in [place]. Patient did receive paracentesis in the emergency department draining 8 L of fluid. I have no suspicion for SBP at this time. Patient's labs overall look fairly close to baseline. Glucose very elevated in the 400s but patient admittingly has not taken any of his three diabetic injections today. Recommend he keep appointment with GI on Monday for further followup. Plan will be for PCP to get him set up through outpt services for further/routine paracenteses. Return to ED precautions given. Lab Data: Labs: Lab Results 01/22/20 01/22/20 01/22/20 Range/Units 09:15 09:15 09:15 WBC 8.5 (4.0-10.0) 10^3/ uL RBC 3.09 L (4.1-5.3) 10^6/u L Hgb 10.3 L (11.7-16.6) g/dL Hct 31.1 L (42.0-52.0) % MCV 100.6 H (80-94) fL MCH 33.3 (28.0-34.0) pg MCHC 33.1 (30.0-36.0) g/dL RDW 13.5 (12.1-15.1) % Plt Count 108 L (130-400) 10^3/c mm MPV 11.3 H (7.4-10.4) fL Neut % (Auto) 74.4 % Lymph % (Auto) 8.5 % [place] % (Auto) 10.6 % Eos % (Auto) 5.4 % Baso % (Auto) 0.9 % Neut # (Auto) 6.31 (1.8-7.7) 10^3/u L Lymph # (Auto) 0.7 L (0.8-4.8) 10^3/u L [place] # (Auto) 0.9 (0.2-0.9) 10^3/u L Eos # (Auto) 0.5 (0.0-0.8) 10^3/u L Baso # (Auto) 0.1 (0.0-0.1) 10^3/u L Nucleated RBC % (a uto) 0 % Nucleated RBCs # 0.0 /100WBC PT 17.60 H (12.1-14.9) SECO NDS INR 1.40 H (0.8-1.2) APTT 29.8 (23.9-36.7) SECO NDS Sodium 127 L (136-145) mmol/L Potassium 3.9 (3.5-5.1) mmol/L Chloride 94 L (98-107) mmol/L Carbon Dioxide 23 (22-29) mmol/L Anion Gap 13.9 (5-19) BUN 29 H (6-20) mg/dL Creatinine 2.1 H (0.7-1.2) mg/dL GFR Calculation 33.6 L (90-130) mL/min Glucose 486 H (65-115) mg/dL POC Glucose (70-110) mg/dL Calculated Osmolal ity 283 L (285-295) mOsm/k g Calcium 9.6 (8.5-10.5) mg/dL Total Bilirubin 1.9 H (0.15-1.2) mg/dL AST 46 H (0-40) U/L ALT 23 (0-41) U/L Alkaline Phosphata se 102 (40-130) IU/L Total Protein 8.0 (6.6-8.7) g/dL Albumin 2.9 L (3.5-5.2) g/dL Globulin 5.1 H (1.3-4.6) g/dL 08// Range/Units 12:33 WBC (4.0-10.0) 10^3/ uL RBC (4.1-5.3) 10^6/u L Hgb (11.7-16.6) g/dL Hct (42.0-52.0) % MCV (80-94) fL MCH (28.0-34.0) pg MCHC (30.0-36.0) g/dL RDW (12.1-15.1) % Plt Count (130-400) 10^3/c mm MPV (7.4-10.4) fL Neut % (Auto) % Lymph % (Auto) % [place] % (Auto) % Eos % (Auto) % Baso % (Auto) % Neut # (Auto) (1.8-7.7) 10^3/u L Lymph # (Auto) (0.8-4.8) 10^3/u L [place] # (Auto) (0.2-0.9) 10^3/u L Eos # (Auto) (0.0-0.8) 10^3/u L Baso # (Auto) (0.0-0.1) 10^3/u L Nucleated RBC % (a uto) % Nucleated RBCs # /100WBC PT (12.1-14.9) SECO NDS INR (0.8-1.2) APTT (23.9-36.7) SECO NDS Sodium (136-145) mmol/L Potassium (3.5-5.1) mmol/L Chloride (98-107) mmol/L Carbon Dioxide (22-29) mmol/L Anion Gap (5-19) BUN (6-20) mg/dL Creatinine (0.7-1.2) mg/dL GFR Calculation (90-130) mL/min Glucose (65-115) mg/dL POC Glucose 445 (70-110) mg/dL Calculated Osmolal ity (285-295) mOsm/k g Calcium (8.5-10.5) mg/dL Total Bilirubin (0.15-1.2) mg/dL AST (0-40) U/L ALT (0-41) U/L Alkaline Phosphata se (40-130) IU/L Total Protein (6.6-8.7) g/dL Albumin (3.5-5.2) g/dL Globulin (1.3-4.6) g/dL Imaging Data ^: CXR: Radiologist's impression: [address] [place] [address] XRay Report Signed Patient: Atif Ellis Unit #: [id number] : 1970 Age/Sex: 49 / M ADM Date: 01/22/20 Loc: ER Room/Bed: Attending Dr: Ordering Provider/Ordering MD: Carmela Sousa Date of Service: 01/22/20 Procedure(s): XR chest 1V portable [id number] Accession Number(s): [id number] Report Number: [id number] PROCEDURE INFORMATION: Exam: XR Chest, 1 View Exam date and time: 01/22/2020 9:03 AM Age: 49 years old Clinical indication: Chest pain; Type not specified; Additional info: Chest painx3 days TECHNIQUE: Imaging protocol: XR of the chest Views: 1 view. COMPARISON: CR Chest 1 [place] [id number] 06/09/2019 11:23 AM FINDINGS: Lungs: Hypoinflation. Asymmetric left basilar airspace/pleural disease , partially obscuring the lateral left hemidiaphragm. Heart/Mediastinum: No cardiomegaly. Bones/joints: Degenerative change. XR/XR chest 1V portable [id number] IMPRESSION: Asymmetric left basilar airspace/pleural disease , partially obscuring the lateral left hemidiaphragm. Dictated By: Rebel Tay MD Signed By: Rebel Tay MD Signed Date/Time: 01/22/20931 DD/ 0 Discharge Plan Discharge Patient Disposition: Home Clinical Impression: Chronic liver disease and cirrhosis, Status post abdominal paracentesis Uncontrolled diabetes mellitus Qualifiers: Diabetes mellitus type: type 2 Glycemic state: with hyperglycemia Qualified Code(s): E11.65 - Type 2 diabetes mellitus with hyperglycemia Abdominal ascites Qualifiers: Ascites type: other type Qualified Code(s): R18.8 - Other ascites Chronic kidney disease Qualifiers: Chronic kidney disease stage: unspecified stage Qualified Code(s): N18.9 - Chronic kidney disease, unspecified Condition: Stable Prescriptions: No Action lactulose 20 gram/30 mL Solution 30 g PO TID Qty: 237 RF: 0 furosemide 40 mg Tablet 40 mg PO BID RF: 0 potassium chloride 10 mEq Capsule, Extended Release 10 meq PO BID RF: 0 cetirizine 10 mg Tablet 10 mg PO DAILY RF: 0 spironolactone 100 mg Tablet 100 mg PO DAILY RF: 0 thiamine HCl (vitamin B1) [Vitamin B-1] 100 mg Tablet 100 mg PO DAILY RF: 0 ciprofloxacin HCl 500 mg Tablet 500 mg PO DAILY RF: 0 liothyronine 5 mcg Tablet 10 mcg PO BID RF: 0 pantoprazole 40 mg Tablet,Delayed Release (Dr/Ec) 40 mg PO BID RF: 0 gabapentin 300 mg Capsule 300 mg PO TID RF: 0 hydroxyzine HCl 25 mg Tablet 25 mg PO DAILY PRN (Reason: Anxiety) RF: 0 ergocalciferol (vitamin D2) [Vitamin D2] 1,250 mcg (50,000 unit) Capsule 1,250 mcg PO Q7D RF: 0 Xifaxan 550 mg Tablet 550 mg PO BID RF: 0 Tresiba FlexTouch U-200 200 unit/mL (3 mL) Insulin Pen 64 unit SUBCUT DAILY RF: 0 levothyroxine 137 mcg Tablet 137 mcg PO DAILY RF: 0 Effexor XR 75 mg Capsule,Extended Release 24hr 75 mg PO DAILY RF: 0 propranolol 20 mg Tablet 20 mg PO BID RF: 0 Novolog Flexpen U-100 Insulin 100 unit/mL (3 mL) Insulin Pen 22 unit SUBCUT TID RF: 0 oxycodone 20 mg Tablet 20 mg PO TID PRN (Reason: Pain) RF: 0 Victoza 2-David 0.6 mg/0.1 mL (18 mg/3 mL) Pen Injector 1.8 mg SUBCUT DAILY RF: 0 Discharge Orders: Discharge Order (Routine); Ordered 01/22/20 Ordered By: Carmela Sousa Referrals: Penny Vail MD [Primary Care Provider] - Activity Restrictions/Additional Instructions: YOU HAVE AN APPOINTMENT WITH YOUR EMERGENCY PREPAREDNESS MANAGER/GI SPECIALIST IN [place] ON JAN 27. DO NOT MISS THIS APPOINTMENT. Discharge Date/Time: 01/22/20 13:03 Coding Level of Care Code ED Batch Or Continuous Still Operator for Chg Fwd Exam Detailed
[2020-01-22 09:24] LABS: Basophils # 0.1 10^3/uL (0.0-0.1); Basophils % 0.9 %; Eosinophils # 0.5 10^3/uL (0.0-0.8); Eosinophils % 5.4 %; Hematocrit 31.1 % (42.0-52.0); Hemoglobin 10.3 g/dL (11.7-16.6); Lymphocytes # 0.7 10^3/uL (0.8-4.8); Lymphocytes % 8.5 %; Mean Corpuscular HGB Conc 33.1 g/dL (30.0-36.0); Mean Corpuscular Hemoglobin 33.3 pg (28.0-34.0); Mean Corpuscular Volume 100.6 fL (80-94); Mean Platelet Volume 11.3 fL (7.4-10.4); Monocytes # 0.9 10^3/uL (0.2-0.9); Monocytes % 10.6 %; Neutrophils # 6.31 10^3/uL (1.8-7.7); Neutrophils % 74.4 %; Nucleated Red Blood Cells % 0 %; Platelet Count 108 10^3/cmm (130-400); Red Blood Count 3.09 10^6/uL (4.1-5.3); Red Cell Distribution Width 13.5 % (12.1-15.1); White Blood Count 8.5 10^3/uL (4.0-10.0)
[2020-01-22 09:36] LABS: Alanine Aminotransferase 23 U/L (0-41); Albumin Level 2.9 g/dL (3.5-5.2); Alkaline Phosphatase 102 IU/L (40-130); Anion Gap 13.9 (5-19); Aspartate Amino Transferase 46 U/L (0-40); Blood Urea Nitrogen 29 mg/dL (6-20); Calcium 9.6 mg/dL (8.5-10.5); Carbon Dioxide 23 mmol/L (22-29); Chloride 94 mmol/L (98-107); Globulin 5.1 g/dL (1.3-4.6); Glomerular Filtration Rate 33.6 mL/min (90-130); Glucose 486 mg/dL (65-115); Osmolality Calculated 283 mOsm/kg (285-295); Potassium 3.9 mmol/L (3.5-5.1); Sodium 127 mmol/L (136-145); Total Bilirubin 1.9 mg/dL (0.15-1.2)
[2020-01-22 09:55] LABS: Partial Thromboplastin Time 29.8 SECONDS (23.9-36.7)
--- NOTE | 2020-01-22 10:17 | US_ITS ---
WS: [id number] ULTRASOUND-GUIDED THERAPEUTIC PARACENTESIS Procedure, risks, and complications have been explained to the patient. Consent is obtained. Utilizing aseptic technique and 1% buffered lidocaine, a small dermatome was made through which a 5 F rench Yueh catheter was inserted. Approximately 8000 ml of cloudy white peritoneal fluid was obtained without difficulty. No complications encountered. US/US paracentesis abd w [id number] IMPRESSION: Uncomplicated paracentesis yielding 8000 ml of peritoneal fluid.
--- NOTE | 2020-01-22 11:57 | XRR_ITS ---
PROCEDURE INFORMATION: Exam: XR Chest, 1 View Exam date and time: 01/22/2020 12:41 PM Age: 49 years old Clinical indication: Device placement; Other: Repeat cxr after paracentesis TECHNIQUE: Imaging protocol: XR of the chest Views: 1 view. COMPARISON: CR XR chest 1V portable [id number] 01/22/2020 8:51 AM FINDINGS: Lungs: Hypoinflation, interstitial prominence, and mild left basilar airspace disease. Pleural space: Interval decrease in size of left pleural effusion. Heart/Mediastinum: No cardiomegaly. Bones/joints: Osteopenia, degenerative change, and old left rib fracture. XR/XR chest 1V portable [id number] IMPRESSION: Interval decrease in size of left pleural effusion.
[2020-01-22 12:36] LABS: Glucose Point of Care 445 mg/dL (70-110)
== END 2020-01-22 13:03 | disposition home or self-care (01) ==
PROVIDERS: Emergency Provider Physician Assistant; PCP Internal Medicine
DX: E11.65 Type 2 diabetes mellitus with hyperglycemia (principal); R18.8 Other ascites; E11.22 Type 2 diabetes mellitus with diabetic chronic kidney disease; I12.9 Hypertensive chronic kidney disease with stage 1 through stage 4 chronic kidney disease, or unspecified chronic kidney disease; N18.9 Chronic kidney disease, unspecified; K74.69 Other cirrhosis of liver; Z79.4 Long term (current) use of insulin; J44.9 Chronic obstructive pulmonary disease, unspecified; I25.10 Atherosclerotic heart disease of native coronary artery without angina pectoris; E78.5 Hyperlipidemia, unspecified; Z87.891 Personal history of nicotine dependence
CPT/HCPCS: 12345; 36416; 49083; 71045; 80053; 82962; 85025; 85610; 85730; 96372; 99283; J1815

== ENCOUNTER 2020-01-24 12:47 | Outpatient (CLI) | payer MEDICARE, MEDICAID, SELFPAY ==
[2020-01-24 13:14] VITALS: BP 130/70; PULSE 80; RESP 20; TEMP 36.7; O2SAT 96; BMI 44.1
--- NOTE | 2020-01-24 13:46 | US_ITS ---
WS: [id number] ULTRASOUND-GUIDED THERAPEUTIC PARACENTESIS Procedure, risks, and complications have been explained to the patient. Consent is obtained. Utilizing aseptic technique and 1% buffered lidocaine, a small dermatome was made through which a 5 F rench Yueh catheter was inserted. Approximately 8000 ml of opaque white peritoneal fluid was obtained without difficulty. No complications encountered. US/[place] paracentesis abd w [id number] IMPRESSION: Uncomplicated paracentesis yielding 8000 ml of peritoneal fluid.
[2020-01-24 15:12] LABS: Body Fluid Polynuclear #Cells 0.013 10^3/uL; Body Fluid WBC 177 /uL; Monocytes # Body Fluid 0.164 10^3/uL; RBC, Body Fluid 2 10^3/uL (0-0)
[2020-01-24 15:13] LABS: Apprearance, Body Fluid TURBID (CLEAR); PATH Referral YES
== END 2020-01-24 12:48 | disposition home or self-care (01) ==
LOC: RAD 12:51
PROVIDERS: PCP Internal Medicine; Visit Provider Internal Medicine
DX: R18.8 Other ascites (principal)
CPT/HCPCS: 49083; 80500; 87070; 87075; 87205; 89050

== ENCOUNTER 2020-01-29 13:55 | Outpatient (CLI) | payer MEDICARE, MEDICAID, SELFPAY ==
--- NOTE | 2020-01-29 14:13 | US_ITS ---
WS: [id number] ULTRASOUND-GUIDED PARACENTESIS CLINICAL INFORMATION: ASCITES COMPARISON: None. Procedure Informed consent: The risks, benefits, and alternatives of the procedure were discussed with the cole ent. Verbal and written consent was obtained. Timeout: A timeout was performed to confirm the correct patient, procedure, and site. Preparation: A suitable skin site was identified. The patient was prepped and draped in usual sterile fashion. Lidocaine 1% was used for local anesthesia. Catheter: 4 Dominican One-step Yueh catheter. Side: Right Lower quadrant. Fluid Volume: 8000 ml Color: Opaque white DISPOSITION: Discarded safely. Complications: None. Patient disposition: Discharged from the department in stable condition. US/US paracentesis abd w [id number] IMPRESSION: Uncomplicated ultrasound-guided paracentesis. Removal of 8000 cc
[2020-01-29 16:42] LABS: Body Fluid WBC 495 /uL; RBC, Body Fluid 2 10^3/uL (0-0)
[2020-01-29 18:05] LABS: Apprearance, Body Fluid TURBID (CLEAR); Color, Body Fluid PALE YELLOW (PALE YELLOW)
== END 2020-01-29 13:56 | disposition home or self-care (01) ==
LOC: RAD 13:58
PROVIDERS: PCP Internal Medicine; Visit Provider Nurse Practitioner Family
DX: R18.8 Other ascites (principal)
CPT/HCPCS: 49083; 80500; 87070; 87075; 87205; 89050

== ENCOUNTER 2020-02-04 07:13 | Outpatient (CLI) | payer MEDICARE, MEDICAID, SELFPAY ==
[2020-02-04 08:08] VITALS: BP 123/77; PULSE 81; RESP 20; TEMP 35.6; O2SAT 94; BMI 45.6
--- NOTE | 2020-02-04 08:25 | US_ITS ---
WS: [id number] ULTRASOUND-GUIDED THERAPEUTIC AND DIAGNOSTIC PARACENTESIS Procedure, risks, and complications have been explained to the patient. Consent is obtained. Utilizing aseptic technique and 1% buffered lidocaine, a small dermatome was made through which a 5 F rench Yueh catheter was inserted. Approximately 3300 ml of cloudy yellow peritoneal fluid was obtaine d without difficulty. No complications encountered. Peritoneal fluid collected for analysis as requested. US/US paracentesis abd w [id number] IMPRESSION: Uncomplicated paracentesis yielding 3300 ml of peritoneal fluid. Peritoneal fluid collected for analysis as requested.
[2020-02-04 09:46] LABS: RBC, Body Fluid 1 10^3/uL (0-0)
[2020-02-04 10:04] LABS: Body Fluid Polynuclear #Cells 0.036 10^3/uL; Body Fluid WBC 182 /uL; Monocytes # Body Fluid 0.146 10^3/uL
[2020-02-04 10:17] LABS: Albumin Body Fluid < 0.2 g/dL; Amylase Body Fluid 17 U/L; Apprearance, Body Fluid TURBID (CLEAR); Body Fluid Specific Gravity 1.015; Cholesterol Body Fluid 6 mg/dL (0-200); Color, Body Fluid PALE YELLOW (PALE YELLOW); Fluid Alkaline Phos. 29 IU/L; LDH Body Fluid 30 U/L; PATH Referral YES; Total Protein Body Fluid 1 g/dL; Triglycerides Body Fluid 278 mg/dL (0-150); Uric Acid Body Fluid 9 mg/dL
== END 2020-02-04 07:14 | disposition home or self-care (01) ==
PROVIDERS: PCP Internal Medicine; Visit Provider Nurse Practitioner Family
DX: R18.8 Other ascites (principal)
CPT/HCPCS: 49083; 80500; 82042; 82150; 82465; 82945; 83615; 83986; 84075; 84157; 84315; 84478; 84560; 87015; 87070; 87075; 87116; 87205; 87206; 87801; 88112; 88305; 89050

== ENCOUNTER 2020-02-07 01:16 | Inpatient (IN) | payer MEDICARE, MEDICAID, SELFPAY ==
[2020-02-07] VITALS (23 sets, daily range): BP systolic 108–144; BP diastolic 54–101; PULSE 85–109; RESP 14–22; TEMP 35.9–36.7; O2SAT 92–100; BMI 51.7
[2020-02-07 01:43] LABS: Glucose Point of Care > 600 mg/dL (70-110)
--- NOTE | 2020-02-07 01:46 | ECG_ITS ---
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 Measurements Intervals [place] Rate: 106 P: 55 ID: [id number] QRS: 45 QRSD: 97 T: 47 QT: 356 QTc: 474 Interpretive Statements SINUS TACHYCARDIA POSSIBLE RIGHT VENTRICULAR CONDUCTION DELAY [RSR (QR) IN V1/V2] NONSPECIFIC T-WAVE ABNORMALITY ABNORMAL RHYTHM ECG Compared to ECG 06/09/2019 16:27:23 T-wave abnormality now present Electronically Signed On 02-08-2020 19:44:11 CDT by Gregg Prince M.D. [id number]
--- NOTE | 2020-02-07 01:47 | W.ED.ABDPA2 ---
HPI - Abdominal Pain General: Chief Complaint: Abdominal Pain Stated Complaint: had parasyntesis wed/ explained to nurse Time Seen by Provider: 02/07/20 01:35 History of Present Illness: HPI narrative: Patient is a 49-year-old male who comes to the ED with ascites. Patient past medical history of liver failure, hepatic encephalopathy, CKD, hypertension, hyperlipidemia, diabetes, jaundice, hypothyroidism and spontaneous bacterial peritonitis. Patient says on February 03 patient had a paracentesis performed and 4 L were drained. Patient was now returning here to the ED because the abdominal swelling has returned and he describes feeling generally unwell. He has some shortness of breath due to all the abdominal swelling. Patient does endorse some mild abdominal pain and he rates it currently a 3 out of 10. Denies fever, chest pain heart palpitations, nausea/vomiting, bladder or bowel symptoms. Associated Symptoms: Reports chills and other (Abdominal swelling due to ascites.); Denies constipation, diarrhea, dysuria, fever(s), hematochezia, hematuria, nausea and vomiting Review of Systems Const: Reports: chills; Denies: fever(s) or fatigue Eyes: Denies: change in vision or eye discomfort ENMT: Denies: throat pain, odynophagia, nasal discharge or nasal congestion Card: Denies: chest pain, palpitations, edema, swelling of feet/ankles, dyspnea on exertion or orthopnea Resp: Reports: dyspnea; Denies: productive cough or non-productive cough GI: Reports: abdominal pain and other (Abdominal swelling due to ascites.); Denies: nausea, vomiting, diarrhea, constipation or hematochezia : Denies: flank pain, difficulty urinating, dysuria or hematuria Musc: Denies: neck pain, back pain or extremity swelling Skin/Breast: Denies: rash or new lesions Neuro: Denies: headache(s), numbness in extremities or weakness in extremities PFS ED PFSH: Medical History Abnormal colonoscopy 2015 Small sigmoid adenomatous polyp 3 mm Rectal focal hyperplastic and focal adenomatous changes Alcohol abuse Ascites of liver -s/p paracentesis with removal of about 4.6 L. Had prior paracentesis about 2 weeks ago with removal of 5.2 L -Continue dual diuretics, rifaximin -Has prior history of SBP in 05/2019 and has been on empiric ciprofloxacin and Flagyl since; has been covered with ceftriaxone during hospital stay Chronic kidney disease Chronic liver failure -As noted above COPD (chronic obstructive pulmonary disease) Coronary artery disease Degenerative disc disease Depression DM type 2 (diabetes mellitus, type 2) -Complicated with peripheral neuropathy -Poorly controlled with A1c of 11.6 -Continue insulin regimen Former smoker Gastric ulcer Acquired blood transfusion 2016 Hepatic encephalopathy Hyperlipidemia Hypertension Hyponatremia -Appears to be an intermittently chronic issue, sodium improved -Likely due to hypovolemia from underlying liver cirrhosis Hypothyroidism Iron deficiency anemia Jaundice -Due to liver cirrhosis -LFTs noted Lactose intolerance Liver cirrhosis -has known hx of liver cirrhosis with portal HTN and varices -is requiring more frequent paracentesis due to persistent ascites -not deemed an appropriate transplant candidate due to poorly controlled IDDM type II -follows up with winding machine operator in [place] but has had difficulty traveling there due to pain and with ongoing pandemic -MELD-Na score-23 with a 14-15% estimated 90-day mortality -ammonia-91, alert and oriented x 3; on lactulose -Coags noted with INR 1.48 Migraines Obstructive sleep apnea -CPAP qhs PHT (portal hypertension) SBP (spontaneous bacterial peritonitis) On ciprofloxacin and Flagyl chronic therapy since 05/2019 however growth cultures negative from that admission, patient was discharged from the hospital around [place] and antibiotics were started empirically Splenomegaly -noted on imaging, mild Thrombocytopenia -Platelet count at baseline -No bleeding Surgical History H/O esophagogastroduodenoscopy Cauterization of gastric ulcer 2018 colonoscopy in 2015 H/O toe surgery Social History Smoking and tobacco status: former smoker Alcohol intake: former Household members: family Housing: House Marital status: Physical Exam Const: COMMON NORMALS: patient oriented x3 and alert GENERAL APPEARANCE: cooperative and comfortable NUTRITIONAL APPEARANCE: obese centrally obese HENMT: COMMON NORMALS: normocephalic HEAD & SCALP: normocephalic MOUTH: Normal oral and palatal mucosa present THROAT: posterior oropharynx normal and uvula midline Eye: COMMON NORMALS: Equal, round and reactive pupils present CONJUNCTIVA: Yes conjunctival abnormal positive bilateral conjunctival icterus PUPIL: Yes Equal, round and reactive pupils present Neck/C-Spine: COMMON NORMALS: supple GENERAL: Yes normal visual inspection Resp: COMMON NORMALS: normal respiratory effort, No retractions, No use of accessory muscles and clear to auscultation bilaterally AUSCULTATION: clear to auscultation bilaterally Cardio: COMMON NORMALS: regular rhythm, S1 normal heart sound present, S2 normal heart sound present, No gallops present (Cardio), No clicks present (Cardio), No murmurs present (Cardio) and Peripheral pulses 2+ throughout RATE: tachycardic (100-105 bpm) RHYTHM: regular rhythm HEART SOUNDS: S1 normal heart sound present and S2 normal heart sound present PERIPHERAL PULSES: Peripheral pulses 2+ throughout GI: COMMON NORMALS: Normal to inspection, nondistended, normoactive bowel sounds present, Soft to palpation and no masses INSPECTION: Yes abdominal distension, Yes central obesity and Yes Fluid wave present AUSCULTATION: Yes normoactive bowel sounds PALPATION: Yes Soft to palpation, Yes Tenderness to palpation present (GI) Details: other (Mild generalized tenderness to the abdomen.) and Yes Ascites present PERCUSSION: Fluid wave present : COMMON NORMALS: Yes no CVA tenderness BLADDER/KIDNEY EXAM: Yes no CVA tenderness Back/Pelvis: COMMON NORMALS: no CVA tenderness Extremity: COMMON NORMALS: normal to inspection and no pedal edema Neuro: COMMON NORMALS: patient oriented x3 SENSORIUM/ORIENTATION: Yes alert GAIT: Yes Normal gait present Skin: COMMON NORMALS: no rashes or lesions noted GENERAL SKIN EXAM: no rashes or lesions noted and dry skin Course Consultations: Consultation #1: I contacted Dr. Farley and told him about patient's case. He said he is more than happy to bring patient in on observation to watch his blood sugar levels and sodium. Time: 03:10 Vital Signs: Vital signs: Vital Signs Temperature 96.6 F L 02/07/20 01:29 Pulse Rate 107 H 02/07/20 02:01 Respiratory Rate 22 H 02/07/20 03:02 Blood Pressure 133/89 02/07/20 02:01 Pulse Oximetry 98 02/07/20 02:01 MDM - Abdominal Pain MDM Narrative: Medical decision making narrative: Patient is a 49-year-old male comes to the ED with abdominal swelling due to ascites and generalized feeling not well . Patient has a past medical history of liver failure, CKD, spontaneous bacterial peritonitis, hypertension, diabetes, hyperlipidemia. Patient had a paracentesis done on February 03 and 4 L were drained. White blood cells 12.8, sodium 117, creatinine 2.7 and blood glucose 722. ABG was performed and blood pH was 7.39. I contacted Dr. Farley the hospitalist about patient's case and his lab findings and he recommended patient can be brought in on observation to monitor sodium and glucose levels. Patient understood and agreed with plan. Lab Data: Attestation: I reviewed the patient's lab results. Labs: Lab Results 02/07/20 02/07/20 02/07/20 Range/Units 01:40 01:55 01:55 WBC 12.8 H (4.0-10.0) 10^3/ uL RBC 3.38 L (4.1-5.3) 10^6/u L Hgb 10.9 L (11.7-16.6) g/dL Hct 32.8 L (42.0-52.0) % MCV 97.0 H (80-94) fL MCH 32.2 (28.0-34.0) pg MCHC 33.2 (30.0-36.0) g/dL RDW 13.5 (12.1-15.1) % Plt Count 144 (130-400) 10^3/c mm MPV 11.2 H (7.4-10.4) fL Neut % (Auto) 80.4 % Lymph % (Auto) 5.2 % [place] % (Auto) 11.9 % Eos % (Auto) 1.6 % Baso % (Auto) 0.3 % Neut # (Auto) 10.29 H (1.8-7.7) 10^3/u L Lymph # (Auto) 0.7 L (0.8-4.8) 10^3/u L [place] # (Auto) 1.5 H (0.2-0.9) 10^3/u L Eos # (Auto) 0.2 (0.0-0.8) 10^3/u L Baso # (Auto) 0.0 (0.0-0.1) 10^3/u L Nucleated RBC % (a uto) 0 % Nucleated RBCs # 0.0 /100WBC PT 19.30 H (12.1-14.9) SECO NDS INR 1.57 H (0.8-1.2) APTT 31.8 (23.9-36.7) SECO NDS Specimen Type Sample Site ABG pH (7.35-7.45) ABG pCO2 (35-45) mmHg ABG pO2 (80.0-100.0) mmH g ABG HCO3 (22-26) mmol/L ABG O2 Saturation ABG Base Excess (-2.0-2.0) mmol/ L Pepe Test A-a O2 Gradient (5-10) mmHg Hematocrit (42-52) % Hgb O2 Saturation (95-100) % Carboxyhemoglobin (0.4-20.1) %THgb Methemoglobin (0.4-1.5) % Total Hemoglobin (14-18) g/dL Ionized Calcium (1.1-1.4) mmol/L O2 Delivery Device FiO2 % Electric Relay Tester ID Sodium (136-145) mmol/L Potassium (3.5-5.1) mmol/L Chloride (98-107) mmol/L Carbon Dioxide (22-29) mmol/L Anion Gap (5-19) BUN (6-20) mg/dL Creatinine (0.7-1.2) mg/dL GFR Calculation (90-130) mL/min Glucose (65-115) mg/dL POC Glucose > 600 (70-110) mg/dL Calculated Osmolal ity (285-295) mOsm/k g Calcium (8.5-10.5) mg/dL Total Bilirubin (0.15-1.2) mg/dL AST (0-40) U/L ALT (0-41) U/L Alkaline Phosphata se (40-130) IU/L Troponin T Baselin e (0-15) ng/L Total Protein (6.6-8.7) g/dL Albumin (3.5-5.2) g/dL Globulin (1.3-4.6) g/dL Lipase (13-60) U/L Urine Color (Yellow) Urine Appearance (CLEAR) Urine pH (5-7) Ur Specific Gravit y (1.005-1.030) Urine Protein (Negative) Urine Glucose (UA) (Normal) Urine Ketones (Negative) Urine Blood (Negative) Urine Nitrate (Negative) Urine Bilirubin (NEGATIVE) Urine Urobilinogen (Negative) mg/dL Ur Leukocyte Leticia ase (Negative) Urine RBC (0-2) /hpf Urine WBC (0-5) /hpf Ur Squamous Epith Cells (0-5) Amorphous Sediment Urine Bacteria (NONE) Urine Yeast 02/07/20 02/07/20 02/07/20 Range/Units 01:55 01:55 01:55 WBC (4.0-10.0) 10^3/ uL RBC (4.1-5.3) 10^6/u L Hgb (11.7-16.6) g/dL Hct (42.0-52.0) % MCV (80-94) fL MCH (28.0-34.0) pg MCHC (30.0-36.0) g/dL RDW (12.1-15.1) % Plt Count (130-400) 10^3/c mm MPV (7.4-10.4) fL Neut % (Auto) % Lymph % (Auto) % [place] % (Auto) % Eos % (Auto) % Baso % (Auto) % Neut # (Auto) (1.8-7.7) 10^3/u L Lymph # (Auto) (0.8-4.8) 10^3/u L [place] # (Auto) (0.2-0.9) 10^3/u L Eos # (Auto) (0.0-0.8) 10^3/u L Baso # (Auto) (0.0-0.1) 10^3/u L Nucleated RBC % (a uto) % Nucleated RBCs # /100WBC PT (12.1-14.9) SECO NDS INR (0.8-1.2) APTT (23.9-36.7) SECO NDS Specimen Type Sample Site ABG pH (7.35-7.45) ABG pCO2 (35-45) mmHg ABG pO2 (80.0-100.0) mmH g ABG HCO3 (22-26) mmol/L ABG O2 Saturation ABG Base Excess (-2.0-2.0) mmol/ L Pepe Test A-a O2 Gradient (5-10) mmHg Hematocrit (42-52) % Hgb O2 Saturation (95-100) % Carboxyhemoglobin (0.4-20.1) %THgb Methemoglobin (0.4-1.5) % Total Hemoglobin (14-18) g/dL Ionized Calcium (1.1-1.4) mmol/L O2 Delivery Device FiO2 % Electric Relay Tester ID Sodium 117 L* (136-145) mmol/L Potassium 3.6 (3.5-5.1) mmol/L Chloride 84 L (98-107) mmol/L Carbon Dioxide 21 L (22-29) mmol/L Anion Gap 15.6 (5-19) BUN 55 H (6-20) mg/dL Creatinine 2.7 H (0.7-1.2) mg/dL GFR Calculation 25.1 L (90-130) mL/min Glucose 722 H* (65-115) mg/dL POC Glucose (70-110) mg/dL Calculated Osmolal ity 277 L (285-295) mOsm/k g Calcium 8.7 (8.5-10.5) mg/dL Total Bilirubin 2.8 H (0.15-1.2) mg/dL AST 38 (0-40) U/L ALT 34 (0-41) U/L Alkaline Phosphata se 77 (40-130) IU/L Troponin T Baselin e 46 H (0-15) ng/L Total Protein 7.7 (6.6-8.7) g/dL Albumin 2.8 L (3.5-5.2) g/dL Globulin 4.9 H (1.3-4.6) g/dL Lipase 222 H (13-60) U/L Urine Color Yellow (Yellow) Urine Appearance Clear (CLEAR) Urine pH 5 (5-7) Ur Specific Gravit y 1.015 (1.005-1.030) Urine Protein Neg (Negative) Urine Glucose (UA) 4+ H (Normal) Urine Ketones Negative (Negative) Urine Blood 2+ H (Negative) Urine Nitrate Negative (Negative) Urine Bilirubin Neg (NEGATIVE) Urine Urobilinogen Norm (Negative) mg/dL Ur Leukocyte Leticia ase Negative (Negative) Urine RBC 0-4 H (0-2) /hpf Urine WBC 0-4 H (0-5) /hpf Ur Squamous Epith Cells 0-4 H (0-5) Amorphous Sediment Not Reportable Urine Bacteria 1+ H (NONE) Urine Yeast 1+ H 02/07/20 Range/Units 02:01 WBC (4.0-10.0) 10^3/ uL RBC (4.1-5.3) 10^6/u L Hgb (11.7-16.6) g/dL Hct (42.0-52.0) % MCV (80-94) fL MCH (28.0-34.0) pg MCHC (30.0-36.0) g/dL RDW (12.1-15.1) % Plt Count (130-400) 10^3/c mm MPV (7.4-10.4) fL Neut % (Auto) % Lymph % (Auto) % [place] % (Auto) % Eos % (Auto) % Baso % (Auto) % Neut # (Auto) (1.8-7.7) 10^3/u L Lymph # (Auto) (0.8-4.8) 10^3/u L [place] # (Auto) (0.2-0.9) 10^3/u L Eos # (Auto) (0.0-0.8) 10^3/u L Baso # (Auto) (0.0-0.1) 10^3/u L Nucleated RBC % (a uto) % Nucleated RBCs # /100WBC PT (12.1-14.9) SECO NDS INR (0.8-1.2) APTT (23.9-36.7) SECO NDS Specimen Type Arterial Sample Site Brachial, left ABG pH 7.39 (7.35-7.45) ABG pCO2 35.4 (35-45) mmHg ABG pO2 66.4 L (80.0-100.0) mmH g ABG HCO3 21.2 L (22-26) mmol/L ABG O2 Saturation 92.9 ABG Base Excess -3.3 L (-2.0-2.0) mmol/ L Pepe Test N/a A-a O2 Gradient 5.0 (5-10) mmHg Hematocrit 32.7 L (42-52) % Hgb O2 Saturation 90.8 L (95-100) % Carboxyhemoglobin 1.4 (0.4-20.1) %THgb Methemoglobin 0.9 (0.4-1.5) % Total Hemoglobin 10.7 L (14-18) g/dL Ionized Calcium 1.2 (1.1-1.4) mmol/L O2 Delivery Device Room air FiO2 21.0 % Electric Relay Tester ID Harkr Sodium 119.0 L (136-145) mmol/L Potassium 3.4 L (3.5-5.1) mmol/L Chloride (98-107) mmol/L Carbon Dioxide (22-29) mmol/L Anion Gap (5-19) BUN (6-20) mg/dL Creatinine (0.7-1.2) mg/dL GFR Calculation (90-130) mL/min Glucose 685.0 H (65-115) mg/dL POC Glucose (70-110) mg/dL Calculated Osmolal ity (285-295) mOsm/k g Calcium (8.5-10.5) mg/dL Total Bilirubin (0.15-1.2) mg/dL AST (0-40) U/L ALT (0-41) U/L Alkaline Phosphata se (40-130) IU/L Troponin T Baselin e (0-15) ng/L Total Protein (6.6-8.7) g/dL Albumin (3.5-5.2) g/dL Globulin (1.3-4.6) g/dL Lipase (13-60) U/L Urine Color (Yellow) Urine Appearance (CLEAR) Urine pH (5-7) Ur Specific Gravit y (1.005-1.030) Urine Protein (Negative) Urine Glucose (UA) (Normal) Urine Ketones (Negative) Urine Blood (Negative) Urine Nitrate (Negative) Urine Bilirubin (NEGATIVE) Urine Urobilinogen (Negative) mg/dL Ur Leukocyte Leticia ase (Negative) Urine RBC (0-2) /hpf Urine WBC (0-5) /hpf Ur Squamous Epith Cells (0-5) Amorphous Sediment Urine Bacteria (NONE) Urine Yeast Discharge Plan Discharge Patient Disposition: Placed in Observation Condition: Stable Referrals: Penny Vail MD [Primary Care Provider] - Coding Level of Care Code ED Sanitarian Inspector for Chg Fwd Exam Comprehensive
[2020-02-07] MEDS: insulin regular-human 100 units/1 mL 10 UNIT IVP (02:09)
[2020-02-07 02:11] LABS: ABG PCO2 35.4 mmHg (35-45); ABG PH Result 7.39 (7.35-7.45); Arterial Blood Gas Hematocrit 32.7 % (42-52); Base Excess ABG -3.3 mmol/L (-2.0-2.0); Blood Gas Operator Identificat HARKR; Blood Gas Sample Site Brachial, left; Blood Gas Sample Type Arterial; Carboxyhemoglobin 1.4 %THgb (0.4-20.1); HCO3 ABG 21.2 mmol/L (22-26); HGB O2 Sat 90.8 % (95-100); Ionized Calcium Level - ABG 1.2 mmol/L (1.1-1.4); Methemoglobin 0.9 % (0.4-1.5); Oxygen Device ROOM AIR; Oxygen Saturation ABG 92.9; PO2 ABG 66.4 mmHg (80.0-100.0); Potassium Level - ABG 3.4 mmol/L (3.5-5.0); Total Hemoglobin 10.7 g/dL (14-18)
[2020-02-07 02:14] LABS: Basophils % 0.3 %; Eosinophils # 0.2 10^3/uL (0.0-0.8); Eosinophils % 1.6 %; Hematocrit 32.8 % (42.0-52.0); Hemoglobin 10.9 g/dL (11.7-16.6); Lymphocytes # 0.7 10^3/uL (0.8-4.8); Lymphocytes % 5.2 %; Mean Corpuscular HGB Conc 33.2 g/dL (30.0-36.0); Mean Corpuscular Hemoglobin 32.2 pg (28.0-34.0); Mean Platelet Volume 11.2 fL (7.4-10.4); Monocytes # 1.5 10^3/uL (0.2-0.9); Monocytes % 11.9 %; Neutrophils # 10.29 10^3/uL (1.8-7.7); Neutrophils % 80.4 %; Nucleated Red Blood Cells % 0 %; Platelet Count 144 10^3/cmm (130-400); Red Blood Count 3.38 10^6/uL (4.1-5.3); Red Cell Distribution Width 13.5 % (12.1-15.1); White Blood Count 12.8 10^3/uL (4.0-10.0)
[2020-02-07 02:20] LABS: INR 1.57 (0.8-1.2); Partial Thromboplastin Time 31.8 SECONDS (23.9-36.7)
[2020-02-07 02:29] LABS: Alanine Aminotransferase 34 U/L (0-41); Albumin Level 2.8 g/dL (3.5-5.2); Alkaline Phosphatase 77 IU/L (40-130); Anion Gap 15.6 (5-19); Aspartate Amino Transferase 38 U/L (0-40); Blood Urea Nitrogen 55 mg/dL (6-20); Calcium 8.7 mg/dL (8.5-10.5); Carbon Dioxide 21 mmol/L (22-29); Chloride 84 mmol/L (98-107); Globulin 4.9 g/dL (1.3-4.6); Glomerular Filtration Rate 25.1 mL/min (90-130); Lipase 222 U/L (13-60); Osmolality Calculated 277 mOsm/kg (285-295); Potassium 3.6 mmol/L (3.5-5.1); Total Bilirubin 2.8 mg/dL (0.15-1.2); Total Protein 7.7 g/dL (6.6-8.7)
[2020-02-07 02:32] LABS: Troponin(5th) Baseline 46 ng/L (0-15)
[2020-02-07 02:35] LABS: Glucose 722 mg/dL (65-115); Sodium 117 mmol/L (136-145)
[2020-02-07] MEDS: morphine 4 mg/mL SDV 1 mL IVP (03:02)
[2020-02-07] MEDS: ondansetron 2 mg/ML SDV 2 mL 4 MG IVP (03:02)
[2020-02-07 03:12] LABS: Protein Urine Neg (Negative); Specific Gravity, Urine 1.015 (1.005-1.030); Urine Appearance Clear (CLEAR); Urine Color Yellow (Yellow); pH Urine 5 (5-7)
[2020-02-07 03:13] LABS: Add Urine Culture? Yes; Bacteria Urine 1+; Bilirubin Urine Neg (NEGATIVE); Blood Urine 2+ (Negative); Glucose Urine UA 4+ (Normal); Ketones Urine Negative (Negative); Leukocyte Esterase Urine Negative (Negative); Nitrate Urine Negative (Negative); RBC Urine 0-4 /hpf (0-2); Squamous Epithelial Cell Urine 0-4 (0-5); Urobilinogen Urine Norm (Negative); WBC Urine 0-4 /hpf (0-5)
--- NOTE | 2020-02-07 03:19 | P.HP_ITS ---
Providers/Chief Complaint Primary Care Provider: Penny Vail MD Chief Complaint: had parasyntesis wed/ explained to nurse History of Present Illness Atif Ellis is a 49 year old male Medications/Allergies Home Medications Medication Instructions Recorded Confirmed Last Taken Type Tresiba FlexTouch U-200 64 unit SUBCUT DAILY 12/26/19 02/04/20 02/03/20 History Xifaxan 550 mg PO BID 12/26/19 02/04/20 02/03/20 History cetirizine 10 mg PO DAILY 12/26/19 02/04/20 02/03/20 History ciprofloxacin HCl 500 mg PO DAILY 12/26/19 02/04/20 02/03/20 History ergocalciferol (vitamin D2) 1,250 mcg PO Q7D 12/26/19 02/04/20 02/03/20 History [Vitamin D2] furosemide 40 mg PO BID 12/26/19 02/04/20 02/03/20 History gabapentin 300 mg PO TID 12/26/19 02/04/20 02/03/20 History hydroxyzine HCl 25 mg PO DAILY PRN 12/26/19 02/04/20 02/03/20 History liothyronine 10 mcg PO BID 12/26/19 02/04/20 02/03/20 History pantoprazole 40 mg PO BID 12/26/19 02/04/20 02/03/20 History potassium chloride 10 meq PO BID 12/26/19 02/04/20 02/03/20 History spironolactone 100 mg PO DAILY 12/26/19 02/04/20 02/03/20 History thiamine HCl (vitamin B1) [Vitamin 100 mg PO DAILY 12/26/19 02/04/20 02/03/20 History B-1] lactulose 30 g PO TID #237 ml 01/07/20 02/04/20 02/03/20 Rx insulin aspart U-100 [Novolog 22 unit SUBCUT TID 01/22/20 02/04/20 02/03/20 History Flexpen U-100 Insulin] levothyroxine 137 mcg PO DAILY 01/22/20 02/04/20 02/03/20 History liraglutide [Victoza 2-David] 1.8 mg SUBCUT DAILY 01/22/20 02/04/20 02/03/20 History oxycodone 20 mg PO TID PRN 01/22/20 02/04/20 02/03/20 History propranolol 20 mg PO BID 01/22/20 02/04/20 02/03/20 History venlafaxine [Effexor XR] 75 mg PO DAILY 01/22/20 02/04/20 02/03/20 History Allergies Allergy/AdvReac Type Severity Reaction Status Date / Time milk Allergy Unknown Verified 12/26/19 08:25 mushroom Allergy ALGY-Anaphy Verified 12/26/19 08:25 laxis PFSH Acute PFSH: Medical History Abnormal colonoscopy 2015 Small sigmoid adenomatous polyp 3 mm Rectal focal hyperplastic and focal adenomatous changes Alcohol abuse Ascites of liver Requiring recurrent paracentesis, Paracentesis every Monday Has an appointment at [facility] on 03/02 for TIPS Chronic kidney disease Chronic liver failure -As noted above COPD (chronic obstructive pulmonary disease) Coronary artery disease Degenerative disc disease Depression DM type 2 (diabetes mellitus, type 2) -Complicated with peripheral neuropathy -Poorly controlled with A1c of 11.6 -Continue insulin regimen Former smoker Gastric ulcer Acquired blood transfusion 2016 Hepatic encephalopathy Hyperlipidemia Hypertension Hyponatremia Hypervolemic Hypothyroidism Iron deficiency anemia Jaundice -Due to liver cirrhosis -LFTs noted Lactose intolerance Liver cirrhosis Migraines Obstructive sleep apnea -CPAP qhs PHT (portal hypertension) SBP (spontaneous bacterial peritonitis) On ciprofloxacin chronic therapy since 06/06 Splenomegaly -noted on imaging, mild Thrombocytopenia Surgical History H/O esophagogastroduodenoscopy Cauterization of gastric ulcer 2019 colonoscopy in 2016 H/O toe surgery Social History Smoking and tobacco status: former smoker Alcohol intake: former Household members: family Housing: House Marital status: Vitals/I&O/Wt Last Vital Signs Temp 96.6 F L 02/07/20 01:29 Pulse 107 H 02/07/20 02:01 Resp 22 H 02/07/20 03:02 BP 133/89 02/07/20 02:01 Pulse Ox 98 02/07/20 02:01 Weight last 48 hrs Weight 154.221 kg Physical Exam Narrative: EXAM NARRATIVE: Morbidly obese Generalized anasarca Icteric appearance Unkempt appearance Fatigue and irritable mood Extremely distended abdomen, right upper quadrant pain on superficial and deep palpation, however abdomen does not elicit any tenderness in other quadrants, bowel sounds sluggish, organomegaly Chronic liver disease sign S1, S2 sinus tachycardia Bilateral vesicular sounds, without adventitious sounds Lower extremity no sign of edema gangrene or ulcer Patient is awake alert oriented x3 GCS 15 Afebrile Decompensated liver cirrhosis signs positive Data : 02/07/20 01:55 02/07/20 01:55 Micro: Microbiology 02/07/20 01:55 Blood Culture - Preliminary Blood SPECIMEN COLLECTED A&P Assessment and plan (1) Decompensated hepatic cirrhosis: Status: Acute (2) Acute kidney injury superimposed on chronic kidney disease: Status: Acute (3) Right upper quadrant pain: Status: Acute (4) Abdominal ascites: Status: Acute (5) Hyperglycemia due to type 2 diabetes mellitus: Status: Acute (6) Hyponatremia: Status: Inactive Additional A&P Information Acute decompensated liver cirrhosis secondary to recent paracentesis Nonalcoholic fatty liver cirrhosis Need to rule out SBP, I would start ceftriaxone 2 g, request diagnostic paracentesis in the morning, Patient is tachycardic, mildly high leukocytes, afebrile, not confused, he would meet sepsis criteria Patient has been compliant with his lactulose, rifaximin and Lasix 120 mg and spironolactone 100 mg, as per the Lasix dose has been increased 120mg recently Meld sodium 30 Patient has an appointment for TIPS procedure next month at [facility], currently requiring paracentesis every week Not a candidate of liver transplant because of suboptimal control of hyperglycemia due to type 2 diabetes and insulin resistance Kindly evaluate if he could be transferred to [facility] for TIPS procedure now instead of next month Right upper quadrant pain Positive Dixon sign I do believe this pain is secondary to liver capsule stretch due to anasarca Currently on ceftriaxone 2 g No abnormal transaminases or alk phosphatase Acute on chronic kidney disease Recent paracentesis with worsening of creatinine, I do believe 4 L of para centesis has a role to play for WALDEMAR, high risk for hepatorenal syndrome Hyperglycemia without DKA Patient is not acidotic, received insulin in the ER Not a candidate to be on fluid Managed with insulin regimen Hypervolemic hyponatremia: I would continue current dose of Lasix and spironolactone Corrected hyperglycemia sodium level 127 No neurological signs Grade 1-2 hepatic encephalopathy Goals of care discussed with the patient and his , full code, in case of cardiac arrest does not want to prolong resuscitative measures if there is no meaningful response SCDs for DVT prophylaxis Consistent carbohydrate diet Attestations Medical Necessity Statement*: Anticipating discharge in less than 48 hours, need diagnostic paracentesis to rule out SBP, might need to be transferred to [facility] for TIPS procedure this month instead of waiting for another 3 weeks Time Spent in Patient Care: (>than 50% of time spent in counselling and/or direct pt care on unit) . 50mins Coding Level of Care Code Acute Senior Electrical Designer for Chg Fwd Diagnoses Decompensated hepatic cirrhosis K72.90; K74.60 Acute kidney injury superimposed on chronic kidney disease N17.9; N18.9 Right upper quadrant pain R10.11 Abdominal ascites R18.8 Hyperglycemia due to type 2 diabetes mellitus E11.65 Hyponatremia E87.1
[2020-02-07 03:47] LABS: Glucose Point of Care > 600 mg/dL (70-110)
[2020-02-07 04:56] LABS: Glucose Point of Care > 600 mg/dL (70-110)
[2020-02-07 04:56] LABS: Glucose Point of Care > 600 mg/dL (70-110)
[2020-02-07] MEDS: albumin 12.5 GM/50 ML VIAL IV (05:58)
--- NOTE | 2020-02-07 06:50 | PC.NURSE ---
Pt is jaundice on admission
[2020-02-07 07:08] LABS: Glucose Point of Care 566 mg/dL (70-110)
[2020-02-07 07:15] LABS: Glucose 658 mg/dL (65-115)
--- NOTE | 2020-02-07 07:46 | ECG_ITS ---
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 Measurements Intervals [place] Rate: 109 P: 53 ID: [id number] QRS: 43 QRSD: 99 T: 45 QT: 337 QTc: 454 Interpretive Statements SINUS TACHYCARDIA NONSPECIFIC T-WAVE ABNORMALITY ABNORMAL RHYTHM ECG Compared to ECG 02/07/2020 01:42:53 No significant changes Electronically Signed On 02-08-2020 19:04:29 CDT by Gregg Prince M.D. [id number]
[2020-02-07] MEDS: levothyroxine 112 mcg Tablet PO (09:32)
[2020-02-07] MEDS: cefTRIAXone 2,000 MG in sodium chloride 0.9% (plus) 50 ML 100 MG IV (09:32)
[2020-02-07] MEDS: levothyroxine 25 mcg Tablet PO (09:32)
[2020-02-07] MEDS: lactulose oral liq 20 gm/30 mL UDC 30 GM PO ×7 (09:32→23:49)
[2020-02-07] MEDS: pantoprazole DR 40 mg Tablet PO (09:32)
[2020-02-07] MEDS: spironolactone 25 mg Tablet 100 MG PO (09:32)
[2020-02-07] MEDS: liothyronine 5 mcg Tablet 10 MCG PO ×2 (09:33→18:09)
[2020-02-07] MEDS: thiamine 100 mg Tablet PO (09:33)
[2020-02-07] MEDS: venlafaxine ER (24HR) 75 mg Capsule PO (09:33)
[2020-02-07] MEDS: FUROsemide 40 mg Tablet PO ×2 (09:33→14:28)
[2020-02-07] MEDS: potassium chloride ER 10 mEq Tablet PO ×2 (09:33→17:57)
[2020-02-07 09:54] LABS: Glucose Point of Care > 600 mg/dL (70-110)
[2020-02-07 09:55] LABS: Glucose Point of Care 551 mg/dL (70-110)
--- NOTE | 2020-02-07 10:00 | US_ITS ---
WS: [id number] ULTRASOUND-GUIDED THERAPEUTIC AND DIAGNOSTIC PARACENTESIS Procedure, risks, and complications have been explained to the patient. Consent is obtained. Utilizing aseptic technique and 1% buffered lidocaine, a small dermatome was made through which a 5 F rench Yueh catheter was inserted. Approximately 8000 ml of opaque yellow cloudy peritoneal fluid was obtained without difficulty. No complications encountered. Specimen collected for analysis as requested. US/US paracentesis abd w [id number] IMPRESSION: Uncomplicated paracentesis yielding 8000 ml of peritoneal fluid. Peritoneal fluid specimen collected for analysis as requested.
[2020-02-07 11:08] LABS: Glucose Point of Care 538 mg/dL (70-110)
[2020-02-07 11:44] LABS: Body Fluid WBC 148 /uL; Monocytes # Body Fluid 0.108 10^3/uL; RBC, Body Fluid 1 10^3/uL (0-0)
[2020-02-07 11:50] LABS: Color, Body Fluid PALE YELLOW (PALE YELLOW)
[2020-02-07 11:51] LABS: Apprearance, Body Fluid TURBID (CLEAR); PATH Referral YES
--- NOTE | 2020-02-07 12:34 | PC.NURSE ---
Sleep Pt falls to sleep whenever I try to doing any teaching
[2020-02-07 12:52] LABS: Amylase Body Fluid 18 U/L; LDH Body Fluid 23 U/L; Total Protein Body Fluid 1 g/dL
[2020-02-07 13:05] LABS: Albumin Body Fluid < 0.2 g/dL
[2020-02-07 13:39] LABS: Alanine Aminotransferase 31 U/L (0-41); Albumin Level 2.8 g/dL (3.5-5.2); Alkaline Phosphatase 72 IU/L (40-130); Anion Gap 15.6 (5-19); Aspartate Amino Transferase 46 U/L (0-40); Blood Urea Nitrogen 51 mg/dL (6-20); Calcium 9.3 mg/dL (8.5-10.5); Carbon Dioxide 21 mmol/L (22-29); Chloride 88 mmol/L (98-107); Globulin 4.9 g/dL (1.3-4.6); Glomerular Filtration Rate 23.1 mL/min (90-130); Glucose 498 mg/dL (65-115); Osmolality Calculated 272 mOsm/kg (285-295); Potassium 3.6 mmol/L (3.5-5.1); Sodium 121 mmol/L (136-145); Total Bilirubin 2.6 mg/dL (0.15-1.2); Total Protein 7.7 g/dL (6.6-8.7)
--- NOTE | 2020-02-07 13:54 | PC.CHAP ---
Pastoral Care Encounter/Spiritual Assessment Type of Contact [] Declined recruiting coordinator visit [] Patient/Family/Request visit [] Outpatient visit [] Follow-up visit [] Physician referral [] Code/Alert [x] Routine visit [] Staff referral [] Actively dying [x] Patient sleeping [] Family support [] [] Out of room [] Palliative care [] [] Receiving care in room [] Pre-surgical visit [] Trauma [] Long length of stay [] ICU visit [] Other: Relational/Emotional Strength [] Patient feels connected with others/family/visitors/staff [] Distress [] Loneliness/isolation [] Abandonment Spirituality of Patient [] Person of Marissa [] Attends Restorationism of their Marissa [] Believes in Prayer [] Reads Bible or Pentecostal materials [] There are Spiritual issues to be addressed Agricultural Sciences Professor Interventions [] Prayer [] Active listening [] Non-anxious presence [] Spiritual/emotional support [] Crisis/trauma care [] Spiritual counseling [] Bereavement support [] Provided bereavement packet [] Provided Bible/devotional materials [] Provided toy/stuffed animal, coloring book to patient or family member [] Provided Communion [] Anointing/[place] [] Salvation [] Completed spiritual assessment [] Other: Impact on Illness or Injury [] Angry [] Fearful [] Anxious [] Often cries [] Exhaustion [] Unable to work [] Unable to attend cheondoism [] Unable to walk/stand [] Unable to read [] Unable to drive [] Unable to eat/drink [] Unable to sleep [] Unable to be with family [] Patient intubated [] Other: Summary Patient was sleeping at the time of the recruiting coordinator's visit. Patient visit attempted by Agricultural Sciences Professor Colt Cabrera. Time spent with patient 3 minutes
[2020-02-07 14:50] LABS: Glucose Point of Care 389 mg/dL (70-110)
--- NOTE | 2020-02-07 14:56 | PC.NURSE ---
paracentisis pre vitals taken at 1028. cleansed area using obstetrical tech. Catheter was placed on left abdomen and cloudy yellow fluid draining. sample was taken to sent out to lab, and total of 8 glass containers totaling 8 liters removed. Pt tolerated it well and slept thru it all. Vital signs were monitored and charted.
--- NOTE | 2020-02-07 14:59 | PC.NURSE ---
Patient offered bath and linen change. Patient refused.
[2020-02-07] MEDS: oxyCODONE 5 mg IR Tab/Cap 20 MG PO (15:50)
--- NOTE | 2020-02-07 16:37 | P.PN_ITS ---
Subjective Subjective: Interval history: s/p paracentesis with removal of 8L fluid under US guidance , continues to be lethargic, somnolent, fluid analysis does not appear c/w SBP Medications: Reviewed: Yes Vitals/I&O/Wt Last Vital Signs Temp 97.1 F L 02/07/20 11:11 Pulse 97 02/07/20 13:19 Resp 18 02/07/20 15:50 BP 112/66 02/07/20 11:19 Pulse Ox 96 02/07/20 13:19 02/07/20 02/07/20 02/07/20 06:59 14:59 22:59 Intake Total 360 / 360 Balance 360 / 360 Weight last 48 hrs Weight 154.221 kg Physical Exam 2 Narrative: EXAM NARRATIVE: GEN: Awake, needs frequent reorientation and stimulus to remain awake CVS: S1S2 N RS: CTA B/L Abd: Grossly distended. Free fluid+ ASSEMBLER HYDRAULIC BACKHOE: no focal neuro deficits, moving extremities in bed Data : 02/07/20 01:55 02/07/20 13:10 Micro: Microbiology 02/07/20 10:30 Gram Stain - Final Peritoneal Fluid 02/07/20 05:15 Blood Culture - Preliminary Blood SPECIMEN COLLECTED 02/07/20 01:55 Blood Culture - Preliminary Blood SPECIMEN COLLECTED A&P Assessment and plan (1) Decompensated hepatic cirrhosis: Status: Acute (2) Abdominal ascites: Status: Acute Qualifiers: Ascites type: other type Qualified Code(s): R18.8 - Other ascites (3) Acute kidney injury superimposed on chronic kidney disease: Status: Acute (4) Hepatic encephalopathy: Status: Acute (5) Hyperglycemia due to type 2 diabetes mellitus: Status: Acute Qualifiers: Diabetes mellitus intermodal customer service insulin use: with senior care use Qualified Code(s): E11.65 - Type 2 diabetes mellitus with hyperglycemia; Z79.4 - shelter (current) use of insulin (6) Chronic kidney disease: Status: Acute Qualifiers: Chronic kidney disease stage: stage 4 (severe) Qualified Code(s): N18.4 - Chronic kidney disease, stage 4 (severe) (7) Right upper quadrant pain: Status: Acute (8) Hyponatremia: Status: Inactive (9) Normal anion gap metabolic acidosis: Status: Acute Additional A&P Information # Acute decompensated liver cirrhosis attributed to Nonalcoholic cirrhosis s/p paracentesis this morning with removal of 8L fluid cell count <250, unlikely SBP Meld score 30 Patient has an appointment for TIPS procedure next month at [place], currently requiring paracentesis Patient does not know name of registered nurse cardiac in [place], trying to reach for further information check INR with am labs # Anasarca, ascites Stop spirinolacton egiven worsening renal function Change lasix to 60mg IVP q12h # Hepatic encephalopathy, increased somnolence, lethargy check ammonia level lactulose every 2 hrs- titrate to 4 to 6 BM per day # WALDEMAR on CKD, suspect hepatorenal syndrome Albumin iv q8h Hold spirinolactone, continue lasix # Hyperglycemia without DKA, NAGMA patient did not receive Tresiba as ordered as not on formulary Change to lantus 60units at bedtime Change novolog to high dose sliding scale Will adjust as needed #Hypervolemic hyponatremia, some degree of pseudohyponatremia given blood sugar >500, improving : full code, in case of cardiac arrest does not want to prolong resuscitative measures if there is no meaningful response SCDs for DVT prophylaxis Consistent carbohydrate diet Attestations Medical Necessity Statement*: change to inpatient, anticipat e>2midnight stay for decompensated cirrhosis, worsening renal function and uncontrolled hyperglycemia Coding Level of Care Code Acute Switchboard Wire Worker Helper for g Fwd Diagnoses Decompensated hepatic cirrhosis K72.90; K74.60 Abdominal ascites R18.8 Ascites type: other type Acute kidney injury superimposed on chronic kidney disease N17.9; N18.9 Hepatic encephalopathy K72.90 Hyperglycemia due to type 2 diabetes mellitus E11.65; Z79.4 Diabetes mellitus senior care insulin use: with intermodal customer service use Chronic kidney disease N18.4 Chronic kidney disease stage: stage 4 (severe) Right upper quadrant pain R10.11 Hyponatremia E87.1 Normal anion gap metabolic acidosis E87.2
[2020-02-07 16:55] LABS: Glucose Point of Care 400 mg/dL (70-110)
--- NOTE | 2020-02-07 17:30 | PC.RESP ---
PULMONARY REHAB INFORMATION SENT TO PATIENT.
[2020-02-07 17:44] LABS: Glucose Point of Care 400 mg/dL (70-110)
[2020-02-07] MEDS: FUROsemide 10 mg/mL SDV 10mL 60 MG IVP (17:56)
--- NOTE | 2020-02-07 19:54 | PC.NURSE ---
[place] Pts girlfriend stated patient see a Dr at [facility] in [facility] about his liver but could not remember the DRs name. The Clinics number is [phone].
[2020-02-07 21:27] LABS: Glucose Point of Care 393 mg/dL (70-110)
[2020-02-07] MEDS: insulin glargine 100 units/1 mL 60 UNIT SUBCUT (21:43)
[2020-02-08] VITALS (7 sets, daily range): BP systolic 114–143; BP diastolic 57–72; PULSE 91–116; RESP 6–18; TEMP 36.4–37.1; O2SAT 94–99
[2020-02-08] MEDS: lactulose oral liq 20 gm/30 mL UDC 30 GM PO ×7 (02:16→22:38)
[2020-02-08 03:45] LABS: Basophils % 0.3 %; Eosinophils # 0.4 10^3/uL (0.0-0.8); Eosinophils % 2.9 %; Hematocrit 29.1 % (42.0-52.0); Hemoglobin 9.9 g/dL (11.7-16.6); Lymphocytes # 0.9 10^3/uL (0.8-4.8); Lymphocytes % 6.5 %; Mean Corpuscular Hemoglobin 32.9 pg (28.0-34.0); Mean Corpuscular Volume 96.7 fL (80-94); Monocytes # 1.7 10^3/uL (0.2-0.9); Monocytes % 12.7 %; Neutrophils # 10.36 10^3/uL (1.8-7.7); Nucleated Red Blood Cells % 0 %; Platelet Count 120 10^3/cmm (130-400); Red Blood Count 3.01 10^6/uL (4.1-5.3); Red Cell Distribution Width 13.4 % (12.1-15.1); White Blood Count 13.5 10^3/uL (4.0-10.0)
[2020-02-08 03:58] LABS: Ammonia 195 umol/L (16-60)
[2020-02-08 04:00] LABS: INR 1.68 (0.8-1.2)
[2020-02-08 04:06] LABS: Alanine Aminotransferase 31 U/L (0-41); Albumin Level 3.5 g/dL (3.5-5.2); Alkaline Phosphatase 69 IU/L (40-130); Anion Gap 14.8 (5-19); Aspartate Amino Transferase 56 U/L (0-40); Blood Urea Nitrogen 52 mg/dL (6-20); Calcium 9.7 mg/dL (8.5-10.5); Carbon Dioxide 24 mmol/L (22-29); Chloride 90 mmol/L (98-107); Globulin 4.1 g/dL (1.3-4.6); Glomerular Filtration Rate 22.3 mL/min (90-130); Glucose 413 mg/dL (65-115); Osmolality Calculated 276 mOsm/kg (285-295); Potassium 3.8 mmol/L (3.5-5.1); Sodium 125 mmol/L (136-145); Total Bilirubin 3.1 mg/dL (0.15-1.2); Total Protein 7.6 g/dL (6.6-8.7)
[2020-02-08 04:12] LABS: Free T4 Free Thyroxine 0.78 ng/dL (0.82-1.77); T3 Free 1.6 PG/ML (2.0-4.4); Thyroid Stimulating Hormone 2.67 uIU/mL (0.27-4.20)
[2020-02-08] MEDS: lactulose oral liq 20 gm/30 mL UDC 300 GM PR ×2 (05:59→06:10)
[2020-02-08] MEDS: FUROsemide 10 mg/mL SDV 10mL 60 MG IVP ×2 (06:16→17:47)
--- NOTE | 2020-02-08 06:32 | PC.NURSE ---
SHIFT SUMMARY AND AM LACTULOSE ENEMA Pt drowsy all night but would wake easily to name and take meds. Lactulose given m1abcde with no BM's Was up to BSC once. This am more difficult to arouse. Resp were noted to be 6-8/min. AM labs back and Ammonia level was noted to be 195. was notified and order was received for Lactulose enema. Given 300gm Lactulose as enema with extremely good results. Very very large liquid BM. Pt more awake and talking with nurses. Wanted to get up to BSC and did so well.
[2020-02-08 06:57] LABS: Glucose Point of Care 465 mg/dL (70-110)
[2020-02-08] MEDS: levothyroxine 25 mcg Tablet PO (08:55)
[2020-02-08] MEDS: liothyronine 5 mcg Tablet 10 MCG PO ×2 (08:55→17:44)
[2020-02-08] MEDS: potassium chloride ER 10 mEq Tablet PO ×2 (08:55→17:46)
[2020-02-08] MEDS: levothyroxine 112 mcg Tablet PO (08:55)
[2020-02-08] MEDS: pantoprazole DR 40 mg Tablet PO (08:55)
[2020-02-08] MEDS: venlafaxine ER (24HR) 75 mg Capsule PO (08:55)
[2020-02-08] MEDS: thiamine 100 mg Tablet PO (08:55)
[2020-02-08] MEDS: cefTRIAXone 1,000 MG in sodium chloride 0.9% (plus) 50 ML 100 MG IV (08:59)
[2020-02-08 11:44] LABS: Glucose Point of Care 467 mg/dL (70-110)
--- NOTE | 2020-02-08 16:01 | P.PN_ITS ---
Subjective Subjective: Interval history: Patient is much more alert and awake today. He is sitting up in a chair at bedside and able to have more of a conversation. Creatinine at 3.0, yesterday 2.9. Sodium at 125. White count slightly up to 13.5. Gram stain from ascites fluid without any organisms. Ammonia returned at 195.Fingerstick is still ranging between 3 90-4 50. Medications: Reviewed: Yes Vitals/I&O/Wt Last Vital Signs Temp 97.8 F 02/08/20 15:32 Pulse 96 02/08/20 15:32 Resp 18 02/08/20 15:32 BP 133/68 02/08/20 15:32 Pulse Ox 99 02/08/20 15:32 02/08/20 02/08/20 02/08/20 06:59 14:59 22:59 Intake Total 400 / 860 880 / 880 Output Total 300 / 300 400 / 400 Balance 100 / 560 480 / 480 Weight last 48 hrs Weight 154.221 kg Physical Exam Narrative: EXAM NARRATIVE: GEN: Awake, alert, less somnolent, still forgetful CVS: S1S2 N RS: CTA B/L Abd: Soft, nt/nd , bs+ DIRECTOR OF DISTANCE LEARNING: no focal neuro deficits Data : 02/08/20 03:26 02/08/20 03:26 Micro: Microbiology 02/07/20 10:30 Gram Stain - Final Peritoneal Fluid Anaerobic Culture - Preliminary Body Fluid Culture - Preliminary 02/07/20 01:55 Urine Culture - Preliminary Urine,Clean Catch 02/07/20 05:15 Blood Culture - Preliminary Blood NEGATIVE TO DATE 02/07/20 01:55 Blood Culture - Preliminary Blood NEGATIVE TO DATE A&P Assessment and plan (1) Decompensated hepatic cirrhosis: Status: Acute (2) Abdominal ascites: Status: Acute Qualifiers: Ascites type: other type Qualified Code(s): R18.8 - Other ascites (3) Acute kidney injury superimposed on chronic kidney disease: Status: Acute (4) Hepatic encephalopathy: Status: Acute (5) Hyperglycemia due to type 2 diabetes mellitus: Status: Acute Qualifiers: Diabetes mellitus adjunct faculty for medical terminology insulin use: with longterm use Qualified Code(s): E11.65 - Type 2 diabetes mellitus with hyperglycemia; Z79.4 - [facility] (current) use of insulin (6) Chronic kidney disease: Status: Acute Qualifiers: Chronic kidney disease stage: stage 4 (severe) Qualified Code(s): N18.4 - Chronic kidney disease, stage 4 (severe) (7) Right upper quadrant pain: Status: Acute (8) Hyponatremia: Status: Inactive (9) Normal anion gap metabolic acidosis: Status: Acute Additional A&P Information # Acute decompensated liver cirrhosis attributed to Nonalcoholic cirrhosis s/p paracentesis 02/06 with removal of 8L fluid cell count <250, unlikely SBP Meld score 30 Patient has an appointment for TIPS procedure next month at [place], currently requiring paracentesis Patient does not know name of engineering aide in [place], trying to reach for further information resume propranolol 20mg TID at home dosing # Anasarca, ascites Stop spirinolacton egiven worsening renal function Change lasix to 60mg IVP q12h, currently tolerating well # Hepatic encephalopathy, less somnolent today Ammonia elevated at 195 lactulose every 2 hrs- titrate to 4 to 6 BM per day continue rifaximin # WALDEMAR on CKD, suspect hepatorenal syndrome Albumin iv q8h Hold spirinolactone, continue lasix as above # Hyperglycemia without DKA, NAGMA lantus 60units at bedtime, add lantus 30 units in the day Continue novolog to high dose sliding scale Will adjust as needed #Hypervolemic hyponatremia, some degree of pseudohyponatremia given blood sugar >500, improving : full code, in case of cardiac arrest does not want to prolong resuscitative measures if there is no meaningful response SCDs for DVT prophylaxis Consistent carbohydrate diet Attestations Medical Necessity Statement*: hepatic encephalopathy, slowly improving, decompensated cirrhosis, uncontrolled blood sugar Coding Level of Care Code Acute Electronic Prepress System Operator for Chg Fwd Diagnoses Decompensated hepatic cirrhosis K72.90; K74.60 Abdominal ascites R18.8 Ascites type: other type Acute kidney injury superimposed on chronic kidney disease N17.9; N18.9 Hepatic encephalopathy K72.90 Hyperglycemia due to type 2 diabetes mellitus E11.65; Z79.4 Diabetes mellitus longterm insulin use: with adjunct faculty for medical terminology use Chronic kidney disease N18.4 Chronic kidney disease stage: stage 4 (severe) Right upper quadrant pain R10.11 Hyponatremia E87.1 Normal anion gap metabolic acidosis E87.2
[2020-02-08 16:46] LABS: Glucose Point of Care 428 mg/dL (70-110)
[2020-02-08] MEDS: propranolol 20 mg Tablet PO ×2 (17:44→20:43)
--- NOTE | 2020-02-08 19:18 | PC.NURSE ---
End of Shift report Patient has had 5 to 6 large bowel movements today. Patient is A&OX3. Respirations are even and non-labored on 2 liters of oxygen via NC. Patient significant other visited today and spoke with Dr. Hernandez about patient's condition.
[2020-02-08 20:33] LABS: Glucose Point of Care 449 mg/dL (70-110)
[2020-02-08] MEDS: insulin glargine 100 units/1 mL 60 UNIT SUBCUT (20:44)
[2020-02-09] VITALS (10 sets, daily range): BP systolic 103–130; BP diastolic 62–78; PULSE 71–95; RESP 16–19; TEMP 36.6–37; O2SAT 93–99
[2020-02-09] MEDS: lactulose oral liq 20 gm/30 mL UDC 30 GM PO ×8 (00:41→23:42)
[2020-02-09] MEDS: oxyCODONE 5 mg IR Tab/Cap 20 MG PO (02:07)
[2020-02-09] MEDS: FUROsemide 10 mg/mL SDV 10mL 60 MG IVP (05:00)
--- NOTE | 2020-02-09 05:28 | PC.NURSE ---
SHIFT SUMMARY Has done well tonight. Has had X3 mod to large liquid BM's Does not always make it up to BSC in time. Able to get up with one assist. Much more awake and is talkative with nurse. Medicated X1 with Oxyir po for pain. Abdomen is large and distended.
[2020-02-09 06:46] LABS: Glucose Point of Care 433 mg/dL (70-110)
[2020-02-09] MEDS: insulin glargine 100 units/1 mL 30 UNIT SUBCUT (09:10)
[2020-02-09] MEDS: levothyroxine 112 mcg Tablet PO (09:11)
[2020-02-09] MEDS: potassium chloride ER 10 mEq Tablet PO ×2 (09:11→17:49)
[2020-02-09] MEDS: thiamine 100 mg Tablet PO (09:11)
[2020-02-09] MEDS: levothyroxine 25 mcg Tablet PO (09:11)
[2020-02-09] MEDS: venlafaxine ER (24HR) 75 mg Capsule PO (09:11)
[2020-02-09] MEDS: pantoprazole DR 40 mg Tablet PO (09:11)
[2020-02-09] MEDS: propranolol 20 mg Tablet PO ×2 (09:16→20:20)
[2020-02-09] MEDS: cefTRIAXone 1,000 MG in sodium chloride 0.9% (plus) 50 ML 100 MG IV (09:16)
[2020-02-09] MEDS: liothyronine 5 mcg Tablet 10 MCG PO ×2 (09:17→17:48)
[2020-02-09 10:40] LABS: Glucose Point of Care 392 mg/dL (70-110)
[2020-02-09 13:59] LABS: Hemoglobin 10.4 g/dL (11.7-16.6); Mean Corpuscular HGB Conc 32.5 g/dL (30.0-36.0); Mean Corpuscular Hemoglobin 31.9 pg (28.0-34.0); Mean Corpuscular Volume 98.2 fL (80-94); Mean Platelet Volume 10.6 fL (7.4-10.4); Platelet Count 150 10^3/cmm (130-400); Red Blood Count 3.26 10^6/uL (4.1-5.3); Red Cell Distribution Width 13.9 % (12.1-15.1); White Blood Count 11.3 10^3/uL (4.0-10.0)
[2020-02-09 14:24] LABS: Absolute Eosinophils 0.2 10^3/cmm (0.0-0.7); Absolute Segmented Neutrophil 9.5 10/cmm (1.6-7.1); Eosinophils 2 %; Lymphocytes 10 %; Monocytes Absolute 0.5 10^3/cmm (0.1-0.6); Segmented Neutrophils 84 %; Total Cells Counted 100 (0-100)
[2020-02-09 14:25] LABS: Anisocytosis Trace; Platelet Estimate Normal (Normal)
[2020-02-09 14:26] LABS: Alanine Aminotransferase 37 U/L (0-41); Albumin Level 3.4 g/dL (3.5-5.2); Alkaline Phosphatase 70 IU/L (40-130); Anion Gap 12.8 (5-19); Aspartate Amino Transferase 71 U/L (0-40); Blood Urea Nitrogen 59 mg/dL (6-20); Calcium 8.7 mg/dL (8.5-10.5); Carbon Dioxide 24 mmol/L (22-29); Chloride 94 mmol/L (98-107); Globulin 4.8 g/dL (1.3-4.6); Glomerular Filtration Rate 19.9 mL/min (90-130); Glucose 320 mg/dL (65-115); Osmolality Calculated 275 mOsm/kg (285-295); Potassium 3.8 mmol/L (3.5-5.1); Sodium 127 mmol/L (136-145); Total Bilirubin 2.2 mg/dL (0.15-1.2); Total Protein 8.2 g/dL (6.6-8.7)
--- NOTE | 2020-02-09 16:24 | P.PN_ITS ---
Subjective Subjective: Interval history: mentation continues to wax and wane, lethargic today for most part of the day, received oxycodone overnight at 2am. renal function worsened at 3.3 cr today, urine output 900cc. Medications: Reviewed: Yes Vitals/I&O/Wt Last Vital Signs Temp 98.1 F 02/09/20 16:00 Pulse 76 02/09/20 13:41 Resp 18 02/09/20 16:00 BP 124/69 02/09/20 16:00 Pulse Ox 98 02/09/20 16:00 02/09/20 02/09/20 02/09/20 06:59 14:59 22:59 Intake Total 300 / 1400 240 / 240 Output Total 825 / 2300 Balance -525 / -900 240 / 240 Physical Exam Narrative: EXAM NARRATIVE: GEN: somnolent, lethargic, waxes and wanes through the day CVS: S1S2 N RS: CTA B/L Abd: Soft, nt/nd , bs+ PATIENT SAFETY COORDINATOR: no focal neuro deficits Data : 02/09/20 13:45 02/09/20 13:45 Micro: Microbiology 02/07/20 10:30 Gram Stain - Final Peritoneal Fluid Anaerobic Culture - Preliminary Body Fluid Culture - Preliminary 02/07/20 01:55 Urine Culture - Final Urine,Clean Catch A&P Assessment and plan (1) Decompensated hepatic cirrhosis: Status: Acute (2) Abdominal ascites: Status: Acute Qualifiers: Ascites type: other type Qualified Code(s): R18.8 - Other ascites (3) Acute kidney injury superimposed on chronic kidney disease: Status: Acute (4) Hepatic encephalopathy: Status: Acute (5) Hyperglycemia due to type 2 diabetes mellitus: Status: Acute Qualifiers: Diabetes mellitus moth exterminator insulin use: with shelter use Qualified Code(s): E11.65 - Type 2 diabetes mellitus with hyperglycemia; Z79.4 - senior care (current) use of insulin (6) Chronic kidney disease: Status: Acute Qualifiers: Chronic kidney disease stage: stage 4 (severe) Qualified Code(s): N18.4 - Chronic kidney disease, stage 4 (severe) (7) Right upper quadrant pain: Status: Acute (8) Hyponatremia: Status: Inactive (9) Normal anion gap metabolic acidosis: Status: Acute Additional A&P Information # Decompensated liver cirrhosis 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 Will attempt to get this information from [facility] resume propranolol 20mg TID at home dosing # Anasarca, ascites Stop spirinolactone given worsening renal function Discontinue Lasix given worsening kidney function today # Hepatic encephalopathy Ammonia elevated at 195 lactulose every 2 hrs- titrate to 4 to 6 BM per day continue rifaximin # WALDEMAR on CKD, suspect hepatorenal syndrome Albumin iv q8h to continue Stop lasix and spirinolactone If cotinues to worsen after stopping lasix, may need to initiate midodrine+octreotide Will attempt to find out his attendings at [facility] and discuss transfer, may need TIPSS sooner # Hyperglycemia without DKA, NAGMA lantus 60units at bedtime, add lantus 30 units in the day Continue novolog to high dose sliding scale Will adjust as needed #Hypervolemic hyponatremia full code, in case of cardiac arrest does not want to prolong resuscitative measures if there is no meaningful response SCDs for DVT prophylaxis Consistent carbohydrate diet Attestations Medical Necessity Statement*: decompensated cirrhosis, worsening kidney function Coding Level of Care Code Acute Special Programs Director for Chg Fwd Diagnoses Decompensated hepatic cirrhosis K72.90; K74.60 Abdominal ascites R18.8 Ascites type: other type Acute kidney injury superimposed on chronic kidney disease N17.9; N18.9 Hepatic encephalopathy K72.90 Hyperglycemia due to type 2 diabetes mellitus E11.65; Z79.4 Diabetes mellitus shelter insulin use: with moth exterminator use Chronic kidney disease N18.4 Chronic kidney disease stage: stage 4 (severe) Right upper quadrant pain R10.11 Hyponatremia E87.1 Normal anion gap metabolic acidosis E87.2
[2020-02-09 16:46] LABS: Glucose Point of Care 221 mg/dL (70-110)
[2020-02-09 19:40] LABS: Glucose Point of Care 295 mg/dL (70-110)
[2020-02-09] MEDS: insulin glargine 100 units/1 mL 60 UNIT SUBCUT (20:21)
[2020-02-10] VITALS (8 sets, daily range): BP systolic 121–147; BP diastolic 63–76; PULSE 69–73; RESP 16–20; TEMP 36.5–37.1; O2SAT 92–96
[2020-02-10] MEDS: lactulose oral liq 20 gm/30 mL UDC 30 GM PO ×5 (01:26→22:13)
[2020-02-10 04:31] LABS: Basophils # 0.1 10^3/uL (0.0-0.1); Basophils % 0.9 %; Eosinophils # 0.3 10^3/uL (0.0-0.8); Eosinophils % 4.2 %; Hematocrit 29.1 % (42.0-52.0); Hemoglobin 9.4 g/dL (11.7-16.6); Lymphocytes # 0.9 10^3/uL (0.8-4.8); Lymphocytes % 11.1 %; Mean Corpuscular HGB Conc 32.3 g/dL (30.0-36.0); Mean Corpuscular Hemoglobin 31.9 pg (28.0-34.0); Mean Corpuscular Volume 98.6 fL (80-94); Mean Platelet Volume 10.7 fL (7.4-10.4); Monocytes % 12.3 %; Neutrophils # 5.61 10^3/uL (1.8-7.7); Neutrophils % 71.2 %; Nucleated Red Blood Cells % 0 %; Platelet Count 93 10^3/cmm (130-400); Red Blood Count 2.95 10^6/uL (4.1-5.3); White Blood Count 7.9 10^3/uL (4.0-10.0)
[2020-02-10 04:53] LABS: Alanine Aminotransferase 38 U/L (0-41); Albumin Level 3.6 g/dL (3.5-5.2); Alkaline Phosphatase 65 IU/L (40-130); Anion Gap 14.4 (5-19); Aspartate Amino Transferase 100 U/L (0-40); Blood Urea Nitrogen 54 mg/dL (6-20); Calcium 9.1 mg/dL (8.5-10.5); Carbon Dioxide 24 mmol/L (22-29); Chloride 96 mmol/L (98-107); Globulin 3.6 g/dL (1.3-4.6); Glomerular Filtration Rate 19.3 mL/min (90-130); Glucose 299 mg/dL (65-115); Osmolality Calculated 282 mOsm/kg (285-295); Potassium 3.4 mmol/L (3.5-5.1); Sodium 131 mmol/L (136-145); Total Bilirubin 2.2 mg/dL (0.15-1.2); Total Protein 7.2 g/dL (6.6-8.7)
[2020-02-10 06:22] LABS: Glucose Point of Care 312 mg/dL (70-110)
--- NOTE | 2020-02-10 07:57 | PC.NURSE ---
bed soiled with BM upon entering the room, patient assested to bedside commode, cleaned bed, new linens applied, patient alert and oriented with intermittent confusion, speech has been appropriate and answered questions/followed commands appropriately. Standby assistance required for transfer with prompts.
--- NOTE | 2020-02-10 08:48 | PC.NURSE ---
Patient's daughter called and said patient's appointment in [place] with specialist can be moved to at 1430 for consultation with Joyce at [facility] for TIPPS procedure. [employer] Consultant notified Dr Garcia.
--- NOTE | 2020-02-10 09:00 | PC.NURSE ---
Rcvd verbal order from Dr Garcia to check ammonia level. Sorter Lumber Straightener put order in as requested.
[2020-02-10] MEDS: pantoprazole DR 40 mg Tablet PO (09:27)
[2020-02-10] MEDS: liothyronine 5 mcg Tablet 10 MCG PO ×2 (09:28→17:59)
[2020-02-10] MEDS: midodrine 5 mg TABLET 7.5 MG PO ×3 (09:28→22:13)
[2020-02-10] MEDS: potassium chloride ER 10 mEq Tablet PO ×2 (09:28→16:39)
[2020-02-10] MEDS: levothyroxine 112 mcg Tablet PO (09:28)
[2020-02-10] MEDS: thiamine 100 mg Tablet PO (09:29)
[2020-02-10] MEDS: levothyroxine 25 mcg Tablet PO (09:29)
[2020-02-10] MEDS: venlafaxine ER (24HR) 75 mg Capsule PO (09:29)
[2020-02-10] MEDS: octreotide 100 mcg/mL SDV SUBCUT ×2 (09:30→17:58)
[2020-02-10] MEDS: propranolol 20 mg Tablet PO ×3 (09:30→22:13)
[2020-02-10] MEDS: cefTRIAXone 1,000 MG in sodium chloride 0.9% (plus) 50 ML 100 MG IV (09:31)
[2020-02-10] MEDS: insulin glargine 100 units/1 mL 30 UNIT SUBCUT (09:41)
--- NOTE | 2020-02-10 10:03 | PC.SOCIAL ---
Pg 2 IMM Explained to pt Pg 2 IMM. Provided pt a copy. No questions voiced. Signed, dated, & timed a copy & placed in chart.
[2020-02-10 10:13] LABS: INR 1.76 (0.8-1.2)
[2020-02-10 10:18] LABS: Ammonia 50 umol/L (16-60)
[2020-02-10 10:51] LABS: Glucose Point of Care 355 mg/dL (70-110)
--- NOTE | 2020-02-10 11:40 | P.PN_ITS ---
Subjective Subjective: Interval history: This morning patient does have episodes of confusion, he is alert to place, alert to person, not to time, does remember what he had for breakfast this morning, however other questions he gets incorrectly, such as does not know who the president [facility] is, does not know the year, afebrile overnight, normotensive, abdomen is distended this morning, urine output is lackluster at 300 cc charted in the last 24 hours I spoke to patient's vacuum bottle assembler in [facility], Dr. Vargas, states that he is set to see patient on for consultation for TIPS procedure, however given concerns for hepatorenal syndrome, states that likely patient will not be a candidate for tips, likely patient would require tertiary level care such as [facility] for possible liver transplant if medical interventions fail I have spoke to the patient about transfer to [facility] as we do not have a vacuum bottle assembler or GI physician, he agrees, I have tried multiple times to reach out to patient's , however I have not heard back, a family member did milk pickup truck driver, and they tell me that patient's will be in the hospital at 4 PM Vitals/I&O/Wt Last Vital Signs Temp 98.2 F 02/10/20 11:12 Pulse 73 02/10/20 11:12 Resp 20 H 02/10/20 11:12 BP 124/76 02/10/20 11:12 Pulse Ox 94 02/10/20 11:12 02/09/20 02/10/20 02/10/20 22:59 06:59 14:59 Intake Total 830 / 1120 340 / 1460 Output Total 0 / 0 300 / 300 Balance 830 / 1120 40 / 1160 Physical Exam Const: COMMON NORMALS: no acute distress and alert GENERAL APPEARANCE: cooperative ORIENTATION/CONSCIOUSNESS: Yes oriented to person and Yes o riented to place; not oriented to time HENMT: COMMON NORMALS: normocephalic HEAD & SCALP: normocephalic Neck/C-Spine: COMMON NORMALS: no JVD Resp: COMMON NORMALS: normal respiratory effort, No retractions, No use of accessory muscles and clear to auscultation bilaterally AUSCULTATION: clear to auscultation bilaterally Cardio: COMMON NORMALS: no JVD, regular rate, regular rhythm, S1 normal heart sound present and S2 normal heart sound present RATE: regular rate RHYTHM: regular rhythm HEART SOUNDS: S1 normal heart sound present and S2 normal heart sound present GI: COMMON NORMALS: Soft to palpation, no masses and no bruits INSPECTION: Yes abdominal distension and Yes Fluid wave present PALPATION: Yes Soft to palpation, No Tenderness to palpation present (GI), No Guarding due to palpation present (GI) and No Rigid due to palpation PERCUSSION: Fluid wave present and tympanic to percussion Extremity: COMMON NORMALS: capillary refill normal, no clubbing, cyanosis or edema, no calf tenderness and no pedal edema Neuro: SENSORIUM/ORIENTATION: Yes alert, Yes oriented to person, Yes oriented to place, No oriented to time and Yes fluctuating sensorium Psych: COMMON NORMALS: mental status grossly normal Data : 02/10/20 04:11 02/10/20 04:11 Micro: Microbiology 02/07/20 10:30 Gram Stain - Final Peritoneal Fluid Anaerobic Culture - Preliminary Body Fluid Culture - Final 02/07/20 01:55 Urine Culture - Final Urine,Clean Catch A&P Assessment and plan (1) Decompensated hepatic cirrhosis: Status: Acute (2) Abdominal ascites: Status: Acute Qualifiers: Ascites type: other type Qualified Code(s): R18.8 - Other ascites (3) Acute kidney injury superimposed on chronic kidney disease: Status: Acute (4) Hepatic encephalopathy: Status: Acute (5) Hyperglycemia due to type 2 diabetes mellitus: Status: Acute Qualifiers: Diabetes mellitus joint terminal attack controller insulin use: with joint terminal attack controller use Qualified Code(s): E11.65 - Type 2 diabetes mellitus with hyperglycemia; Z79.4 - residential (current) use of insulin (6) Chronic kidney disease: Status: Acute Qualifiers: Chronic kidney disease stage: stage 4 (severe) Qualified Code(s): N18.4 - Chronic kidney disease, stage 4 (severe) (7) Right upper quadrant pain: Status: Acute (8) Hyponatremia: Status: Inactive (9) Normal anion gap metabolic acidosis: Status: Acute Additional A&P Information # Decompensated liver cirrhosis attributed to Nonalcoholic cirrhosis s/p paracentesis 02/06 with removal of 8L fluid abdomen is slightly distended today, no complaints of abdominal pain, will hold off on paracentesis cell count <250, unlikely SBP, continuing CTX however as patient on ppx cipro as outpatient Meld score 30, 3-month mortality 52.6. Serum sodium 131, INR 1.76, bilirubin 2.2, creatinine 3.4 Patient has an appointment for TIPS through Dr. Vargas's office, and [facility], however is not a candidate for TIPS given hepatorenal syndrome resume propranolol 20mg TID at home dosing neurochecks, seizure precautions, vitals every 4 hours Hepatorenal syndrome Worsening creatinine 3.4, urine output lackluster 300, no charted hypotensive episodes Patient has been getting albumin Plan increase albumin to 50 g every 12 hours Add midodrine 7.5 mg 3 times daily Add octreotide 100 mcg every 8 hours I have consulted nephrology for worsening kidney function, possibly consider dialysis According to previous physicians notes, patient's family has been hesitant about transfer to [facility] Patient is a high risk of decompensation, we do not have a vacuum bottle assembler here at [facility], patient is a candidate for liver transplant, will recheck a bar she was hospital # Anasarca, ascites Stop spirinolactone given worsening renal function Discontinue Lasix given worsening kidney function # Hepatic encephalopathy Ammonia elevated at 50 lactulose every 2 hrs- titrate to 4 to 6 BM per day continue rifaximin # Hyperglycemia without DKA, NAGMA lantus 60units at bedtime, add lantus 30 units in the day Continue novolog to high dose sliding scale Will adjust as needed #Hypervolemic hyponatremia full code, in case of cardiac arrest does not want to prolong resuscitative measures if there is no meaningful response SCDs for DVT prophylaxis Consistent carbohydrate diet Attestations Medical Necessity Statement*: Patient requires hospitalization, for decompensated liver failure, hepatorenal syndrome Coding Level of Care Code Acute Yard Jockey for [facility] Fwd Diagnoses Decompensated hepatic cirrhosis K72.90; K74.60 Abdominal ascites R18.8 Ascites type: other type Acute kidney injury superimposed on chronic kidney disease N17.9; N18.9 Hepatic encephalopathy K72.90 Hyperglycemia due to type 2 diabetes mellitus E11.65; Z79.4 Diabetes mellitus joint terminal attack controller insulin use: with joint terminal attack controller use Chronic kidney disease N18.4 Chronic kidney disease stage: stage 4 (severe) Right upper quadrant pain R10.11 Hyponatremia E87.1 Normal anion gap metabolic acidosis E87.2
--- NOTE | 2020-02-10 13:37 | PC.NURSE ---
Patient refuses lactulose due to pending transfer to [place] to [facility].
--- NOTE | 2020-02-10 14:42 | P.TS_ITS ---
Transfer Summary Providers Date of Admission: 02/07/20 16:42 Date of Discharge: 02/10/20 Attending Provider at Admission: Mikal Farley MD Attending Provider at Transfer: Shayne Garcia MD Primary Care Provider: Penny Vail MD Anticipated Date of Transfer: Anticipated date of transfer: 02/10/20 Receiving Facility & Provider: Receiving Provider: [] Receiving facility: [] Diagnoses at Discharge Discharge Diagnosis (1) Decompensated hepatic cirrhosis: Status: Acute (2) Abdominal ascites: Status: Acute Qualifiers: Ascites type: other type Qualified Code(s): R18.8 - Other ascites (3) Acute kidney injury superimposed on chronic kidney disease: Status: Acute (4) Hepatic encephalopathy: Status: Acute (5) Hyperglycemia due to type 2 diabetes mellitus: Status: Acute Qualifiers: Diabetes mellitus tank terminal gauger insulin use: with tank terminal gauger use Qualified Code(s): E11.65 - Type 2 diabetes mellitus with hyperglycemia; Z79.4 - oysterman (current) use of insulin (6) Chronic kidney disease: Status: Acute Qualifiers: Chronic kidney disease stage: stage 4 (severe) Qualified Code(s): N18.4 - Chronic kidney disease, stage 4 (severe) (7) Right upper quadrant pain: Status: Acute (8) Hyponatremia: Status: Inactive Problem details: Hypervolemic (9) Normal anion gap metabolic acidosis: Status: Acute Reason for Visit Reason for Visit: had parasyntesis wed/ explained to nurse Hospital Course Discharge Summary: This is a 49-year-old male with a past medical history morbid obesity, insulin-dependent type 2 diabetes mellitus, liver cirrhosis with portal hypertension and history of esophageal varices, history of nonalcoholic liver cirrhosis, history of hepatic encephalopathy, history of SBP on empiric Cipro and Flagyl, currently undergoing evaluation by final inspector movement assembly Dr. Vargas for possible TIPS procedure but currently on lactulose and rifaximin, chronic paracentesis dependent, hypertension, hyperlipidemia, CAD, GERD, chronic pain, anxiety depression, chronic microcytic anemia, CKD stage II-III, who presents to [facility] due to concerns for acute decompensated liver failure, hyponatremia, renal failure. Patient was admitted to the general medical floors, had an evaluation for spontaneous bacterial peritonitis, he is already on chronic Cipro and Flagyl, had a paracentesis performed, 8 L of fluid removed, PMN less than 250, peritoneal fluid has no growth so far, patient is empirically covered with Ro cephin. Patient has remained afebrile, normotensive, the likelihood SBP is fairly unlikely, patient's on Rocephin for now. For patient's abdominal distention, secondary to ascites, 8 L of fluid removed, patient is chronically paracentesis dependent. For patient's hyperammonemia, serum ammonia levels were as high as 195 during hospital admission, patient was on aggressive lactulose therapy with rifaximin, down to 50 today. Patient's meld score was 30 this hospital admission, serum sodium 131, creatinine 3.4, total bili 2.2, INR 1.76 For history of esophageal varices, he is on propanolol. Had hypervolemic hyponatremia, serum sodium report improving to 131 On hospital admission, patient's creatinine was noticed to be 2.7, urine output remained decreased, concerns for hepatorenal syndrome, received albumin therapy, no significant hypotensive episodes, did get gentle hydration. However patient's creatinine continued to worsen, creatinine is as high as 3.4, urine output for the last 24 hours was quite lackluster at 300 cc. I have increased the patient's albumin to 50 g every 12 hours, added midodrine 7.5 mg 3 times daily, octreotide 100 mcg every 8 hours. Patient has never been hypotensive, does not qualify for Levophed or dopamine. Nephrology was consulted. Terlipressin is not available at [facility]. Patient has not had any hypotensive episodes. I spoke to patient's final inspector movement assembly at [facility], Dr. Vargas, who feels the patient is not a candidate for TIPS at this point, there is a high risk of complications, and patient would be better served for higher level care at a tertiary level center that could offer him possibly a liver transplant. I discussed with physicians at [facility], due to my concerns for worsening hepatorenal syndrome, concerns for acute decompensated liver failure, [facility] does not have final inspector movement assembly, and possibility patient could be a candidate for liver transplant. Dr. Arana, at [facility], final inspector movement assembly accepted the transfer. Patients currently awaiting a bed. I discussed with patient and his , advised risk and benefits, voiced understanding, all questions answered, agreed to proceed. I was absolutely clear with the patient and his , that going up to [facility] would not guarantee him a liver transplant, nor is there a liver waiting for him in [facility], going to a tertiary level of care would give him the opportunity to be considered for transplant, and to have further work-up and evaluation. Physical Exam Const: COMMON NORMALS: no acute distress and alert GENERAL APPEARANCE: cooperative ORIENTATION/CONSCIOUSNESS: Yes oriented to person and Yes oriented to place; not oriented to time HENMT: COMMON NORMALS: normocephalic HEAD & SCALP: normocephalic Neck/C-Spine: COMMON NORMALS: no JVD Resp: COMMON NORMALS: normal respiratory effort, No retractions, No use of accessory muscles and clear to auscultation bilaterally AUSCULTATION: clear to auscultation bilaterally Cardio: COMMON NORMALS: no JVD, regular rate, regular rhythm, S1 normal heart sound present and S2 normal heart sound present RATE: regular rate RHYTHM: regular rhythm HEART SOUNDS: S1 normal heart sound present and S2 normal heart sound present GI: COMMON NORMALS: Soft to palpation, no masses and no bruits INSPECTION: Yes abdominal distension and Yes Fluid wave present PALPATION: Yes Soft to palpation, No Tenderness to palpation present (GI), No Guarding due to palpation present (GI) and No Rigid due to palpation PERCUSSION: Fluid wave present and tympanic to percussion Extremity: COMMON NORMALS: capillary refill normal, no clubbing, cyanosis or edema, no calf tenderness and no pedal edema Neuro: SENSORIUM/ORIENTATION: Yes alert, Yes oriented to person, Yes oriented to place, No oriented to time and Yes fluctuating sensorium Psych: COMMON NORMALS: mental status grossly normal TS Data Data Completed and Pending: Completed Studies During Hospitalization Category Date Time Status US paracentesis a bd w [id number] Routine Ultrasound 02/07/20 10:00 Completed Pending at discharge Category Date Time Status Anaerobic Culture Routine Lab 02/07/20 10:30 Results Blood Culture Sta t Lab 02/07/20 05:15 Results Body Fluid Cultur e & GS Routine Lab 02/07/20 10:30 Results Labs from last 24 hours 02/10/20 02/10/20 02/10/20 10:45 09:50 09:50 WBC RBC Hgb Hct MCV MCH MCHC RDW Plt Count MPV Neut % (Auto) Lymph % (Auto) Otoe % (Auto) Eos % (Auto) Baso % (Auto) Neut # (Auto) Lymph # (Auto) [place] # (Auto) Eos # (Auto) Baso # (Auto) Nucleated RBC % (a uto) Nucleated RBCs # PT 21.10 H INR 1.76 H Sodium Potassium Chloride Carbon Dioxide Anion Gap BUN Creatinine GFR Calculation Glucose POC Glucose 355 Calculated Osmolal ity Calcium Total Bilirubin AST ALT Alkaline Phosphata se Ammonia 50 Total Protein Albumin Globulin 02/10/20 02/10/20 02/10/20 06:18 04:11 04:11 WBC 7.9 RBC 2.95 L Hgb 9.4 L Hct 29.1 L MCV 98.6 H MCH 31.9 MCHC 32.3 RDW 14.0 Plt Count 93 L MPV 10.7 H Neut % (Auto) 71.2 Lymph % (Auto) 11.1 Otoe % (Auto) 12.3 Eos % (Auto) 4.2 Baso % (Auto) 0.9 Neut # (Auto) 5.61 Lymph # (Auto) 0.9 Otoe # (Auto) 1.0 H Eos # (Auto) 0.3 Baso # (Auto) 0.1 Nucleated RBC % (a uto) 0 Nucleated RBCs # 0.0 PT INR Sodium 131 L Potassium 3.4 L Chloride 96 L Carbon Dioxide 24 Anion Gap 14.4 BUN 54 H Creatinine 3.4 H GFR Calculation 19.3 L Glucose 299 H POC Glucose 312 Calculated Osmolal ity 282 L Calcium 9.1 Total Bilirubin 2.2 H AST 100 H ALT 38 Alkaline Phosphata se 65 Ammonia Total Protein 7.2 Albumin 3.6 Globulin 3.6 02/09/20 02/09/20 19:37 16:38 WBC RBC Hgb Hct MCV MCH MCHC RDW Plt Count MPV Neut % (Auto) Lymph % (Auto) Otoe % (Auto) Eos % (Auto) Baso % (Auto) Neut # (Auto) Lymph # (Auto) Otoe # (Auto) Eos # (Auto) Baso # (Auto) Nucleated RBC % (a uto) Nucleated RBCs # PT INR Sodium Potassium Chloride Carbon Dioxide Anion Gap BUN Creatinine GFR Calculation Glucose POC Glucose 295 221 Calculated Osmolal ity Calcium Total Bilirubin AST ALT Alkaline Phosphata se Ammonia Total Protein Albumin Globulin Vitals: Last Vital Signs Temp 98.2 F 02/10/20 11:12 Pulse 73 02/10/20 11:12 Resp 20 H 02/10/20 11:12 BP 124/76 02/10/20 11:12 Pulse Ox 94 02/10/20 11:12 TS Medications Medications Home Medications Tresiba FlexTouch U-200 60 unit SUBCUT DAILY 12/26/19 [History Confirmed 02/07/20] Xifaxan 550 mg PO BID 12/26/19 [History Confirmed 02/07/20] cetirizine 10 mg PO DAILY 12/26/19 [History Confirmed 02/07/20] ciprofloxacin HCl 500 mg PO DAILY 12/26/19 [History Confirmed 02/07/20] ergocalciferol (vitamin D2) [Vitamin D2] 1,250 mcg PO Q7D 12/26/19 [History Confirmed 02/07/20] furosemide See Rx Instructions .ROUTE .COMPLEX 12/26/19 [History Confirmed 02/07/20] gabapentin 300 mg PO TID 12/26/19 [History Confirmed 02/07/20] hydroxyzine HCl 25 mg PO Q12H PRN 12/26/19 [History Confirmed 02/07/20] liothyronine 5 mcg PO BID 12/26/19 [History Confirmed 02/07/20] pantoprazole 40 mg PO BID 12/26/19 [History Confirmed 02/07/20] potassium chloride 10 meq PO BID 12/26/19 [History Confirmed 02/07/20] spironolactone 100 mg PO DAILY 12/26/19 [History Confirmed 02/07/20] thiamine HCl (vitamin B1) [Vitamin B-1] 100 mg PO DAILY 12/26/19 [History Confirmed 02/07/20] lactulose 30 g PO TID #237 ml 01/07/20 [Rx Confirmed 02/07/20] insulin aspart U-100 [Novolog Flexpen U-100 Insulin] 22 unit SUBCUT TID 01/22/20 [History Confirmed 02/07/20] levothyroxine 137 mcg PO DAILY 01/22/20 [History Confirmed 02/07/20] liraglutide [Victoza 2-David] 0.6 mg SUBCUT DAILY 01/22/20 [History Confirmed 02/07/20] oxycodone 20 mg PO TID PRN 01/22/20 [History Confirmed 02/07/20] propranolol 20 mg PO TID 01/22/20 [History Confirmed 02/07/20] venlafaxine [Effexor XR] 37.5 mg PO DAILY 01/22/20 [History Confirmed 02/07/20] empagliflozin [Jardiance] 10 mg PO DAILY 02/07/20 [History Confirmed 02/07/20] nystatin [Nystop] 1 applic TOPICAL BID 02/07/20 [History Confirmed 02/07/20] Active Medications Dextrose (D50w) 25 ml IVP ONCE PRN; Protocol PRN Reason: hypoglycemia protocol Dextrose (D50w) 50 ml IVP PRN PRN; Protocol PRN Reason: hypoglycemia protocol Furosemide (Lasix) 60 mg IVP Q12H LUCIA Last Admin: 02/09/20 05:00 Dose: 60 mg Documented by: Glucagon (Glucagen) 1 mg IM ONCE PRN; Protocol PRN Reason: Adult Acute Hypoglycemia Prot. Dextrose (D5w) 500 mls @ 100 mls/hr IV ONCE PRN; Protocol PRN Reason: Adult Acute Hypoglycemia Prot Ceftriaxone Sodium 1,000 mg/ (Sodium Chloride) 50 mls @ 100 mls/hr IV DAILY LUCIA; Protocol Last Admin: 02/10/20 09:31 Dose: 100 mls/hr Documented by: Albumin Human (Albumin) 50 gm in 200 mls @ 60 mls/hr IV Q12H LUCIA Last Admin: 02/10/20 09:31 Dose: 60 mls/hr Documented by: Insulin Aspart (Novolog) 0 unit SUBCUT WM&BEDTIME LUCIA; Protocol Last Admin: 02/10/20 11:28 Dose: 16 unit Documented by: Insulin Glargine (Lantus) 60 unit SUBCUT BEDTIME [facility]UCIA Last Admin: 02/09/20 20:21 Dose: 60 unit Documented by: Insulin Glargine (Lantus) 30 unit SUBCUT DAILY [facility] Last Admin: 02/10/20 09:41 Dose: 30 unit Documented by: Lactulose (Constulose) 30 gm PO Q2H [facility]UCIA Last Admin: 02/10/20 13:37 Dose: Not Given Documented by: Levothyroxine Sodium (Synthroid) 112 mcg PO DAILY [facility] Last Admin: 02/10/20 09:28 Dose: 112 mcg Documented by: Levothyroxine Sodium (Synthroid) 25 mcg PO DAILY [facility] Last Admin: 02/10/20 09:29 Dose: 25 mcg Documented by: Liothyronine Sodium (Cytomel) 10 mcg PO BID [facility] Last Admin: 02/10/20 09:28 Dose: 10 mcg Documented by: Midodrine (Proamatine) 7.5 mg PO TID [facility] Last Admin: 02/10/20 09:28 Dose: 7.5 mg Documented by: Octreotide Acetate (Sandostatin) 100 mcg SUBCUT Q8H [facility] Last Admin: 02/10/20 09:30 Dose: 100 mcg Documented by: Pantoprazole Sodium (Protonix) 40 mg PO DAILY [facility] Last Admin: 02/10/20 09:27 Dose: 40 mg Documented by: Potassium Chloride (Klor-Con 10) 10 meq PO BID [facility] Last Admin: 02/10/20 09:28 Dose: 10 meq Documented by: Propranolol HCl (Inderal) 20 mg PO TID [facility] Last Admin: 02/10/20 09:30 Dose: 20 mg Documented by: Rifaximin (Xifaxan) 550 mg PO BID [facility]; Protocol Last Admin: 02/10/20 09:29 Dose: 550 mg Documented by: Spironolactone (Aldactone) 100 mg PO DAILY [facility] Last Admin: 02/07/20 09:32 Dose: 100 mg Documented by: Thiamine Mononitrate (Vitamin B-1) 100 mg PO DAILY [facility] Last Admin: 02/10/20 09:29 Dose: 100 mg Documented by: Venlafaxine HCl (Effexor Xr) 75 mg PO DAILY [facility] Last Admin: 02/10/20 09:29 Dose: 75 mg Documented by: Discharge Plan Discharge Condition: Stable Prescriptions: No Action lactulose 20 gram/30 mL Solution 30 g PO TID Qty: 237 RF: 0 furosemide 40 mg Tablet See Rx Instructions .ROUTE .COMPLEX RF: 0 potassium chloride 10 mEq Capsule, Extended Release 10 meq PO BID RF: 0 cetirizine 10 mg Tablet 10 mg PO DAILY RF: 0 spironolactone 100 mg Tablet 100 mg PO DAILY RF: 0 thiamine HCl (vitamin B1) [Vitamin B-1] 100 mg Tablet 100 mg PO DAILY RF: 0 ciprofloxacin HCl 500 mg Tablet 500 mg PO DAILY RF: 0 liothyronine 5 mcg Tablet 5 mcg PO BID RF: 0 pantoprazole 40 mg Tablet,Delayed Release (Dr/Ec) 40 mg PO BID RF: 0 gabapentin 300 mg Capsule 300 mg PO TID RF: 0 hydroxyzine HCl 25 mg Tablet 25 mg PO Q12H PRN (Reason: Anxiety) RF: 0 ergocalciferol (vitamin D2) [Vitamin D2] 1,250 mcg (50,000 unit) Capsule 1,250 mcg PO Q7D RF: 0 Xifaxan 550 mg Tablet 550 mg PO BID RF: 0 Tresiba FlexTouch U-200 200 unit/mL (3 mL) Insulin Pen 60 unit SUBCUT DAILY RF: 0 levothyroxine 137 mcg Tablet 137 mcg PO DAILY RF: 0 venlafaxine [Effexor XR] 75 mg Capsule,Extended Release 24hr 37.5 mg PO DAILY RF: 0 propranolol 20 mg Tablet 20 mg PO TID RF: 0 insulin aspart U-100 [Novolog Flexpen U-100 Insulin] 100 unit/mL (3 mL) Insulin Pen 22 unit SUBCUT TID RF: 0 oxycodone 20 mg Tablet 20 mg PO TID PRN (Reason: Pain) RF: 0 Victoza 2-David 0.6 mg/0.1 mL (18 mg/3 mL) Pen Injector 0.6 mg SUBCUT DAILY RF: 0 Nystop 100,000 unit/gram powder 1 applic TOPICAL BID RF: 0 Jardiance 10 mg tablet 10 mg PO DAILY RF: 0 Referrals: Penny Vail MD [Primary Care Provider] - Transfer Attestations Status at Transfer: Cognitive status at transfer: cognitively intact , Behavioral status at transfer: cooperative and dependent in ADL's , Coding Level of Care Code Acute Property Clerk for g Fwd Diagnoses Decompensated hepatic cirrhosis K72.90; K74.60 Abdominal ascites R18.8 Ascites type: other type Acute kidney injury superimposed on chronic kidney disease N17.9; N18.9 Hepatic encephalopathy K72.90 Hyperglycemia due to type 2 diabetes mellitus E11.65; Z79.4 Diabetes mellitus longterm insulin use: with longterm use Chronic kidney disease N18.4 Chronic kidney disease stage: stage 4 (severe) Right upper quadrant pain R10.11 Hyponatremia E87.1 Normal anion gap metabolic acidosis E87.2
--- NOTE | 2020-02-10 16:40 | PC.NURSE ---
Physician gave permission for patients son to visit prior to transfer to another facility.
--- NOTE | 2020-02-10 16:41 | PC.NURSE ---
patient requesting to see his son before being transferred to [facility]. Dr Garcia okayed patient's son to visit. Patient's requesting to speak with Dr Garcia. Dr Garcia notified.
[2020-02-10 17:22] LABS: Glucose Point of Care 310 mg/dL (70-110)
--- NOTE | 2020-02-10 18:40 | PC.NURSE ---
Patient and family decided patient wanted to go home on Hospice instead of being transferred to [facility]. Dr Garcia notified.
[2020-02-10 20:36] LABS: Glucose Point of Care 276 mg/dL (70-110)
[2020-02-10] MEDS: insulin glargine 100 units/1 mL 60 UNIT SUBCUT (22:12)
[2020-02-11] VITALS (9 sets, daily range): BP systolic 100–127; BP diastolic 49–68; PULSE 64–75; RESP 18–20; TEMP 36.5–37.2; O2SAT 93–98
[2020-02-11 06:10] LABS: Basophils # 0.1 10^3/uL (0.0-0.1); Basophils % 0.7 %; Eosinophils # 0.4 10^3/uL (0.0-0.8); Eosinophils % 5.4 %; Hematocrit 27.4 % (42.0-52.0); Lymphocytes # 0.9 10^3/uL (0.8-4.8); Lymphocytes % 12.2 %; Mean Corpuscular HGB Conc 32.8 g/dL (30.0-36.0); Mean Corpuscular Hemoglobin 32.1 pg (28.0-34.0); Mean Corpuscular Volume 97.9 fL (80-94); Mean Platelet Volume 10.6 fL (7.4-10.4); Monocytes # 0.9 10^3/uL (0.2-0.9); Monocytes % 12.6 %; Neutrophils # 5.02 10^3/uL (1.8-7.7); Nucleated Red Blood Cells % 0 %; Platelet Count 84 10^3/cmm (130-400); Red Cell Distribution Width 14.2 % (12.1-15.1); White Blood Count 7.3 10^3/uL (4.0-10.0)
[2020-02-11 06:19] LABS: INR 1.94 (0.8-1.2)
[2020-02-11 06:21] LABS: Ammonia 67 umol/L (16-60)
[2020-02-11 06:34] LABS: Alanine Aminotransferase 29 U/L (0-41); Alkaline Phosphatase 51 IU/L (40-130); Anion Gap 16.2 (5-19); Aspartate Amino Transferase 70 U/L (0-40); Blood Urea Nitrogen 56 mg/dL (6-20); Calcium 8.7 mg/dL (8.5-10.5); Carbon Dioxide 23 mmol/L (22-29); Chloride 99 mmol/L (98-107); Globulin 3.2 g/dL (1.3-4.6); Glomerular Filtration Rate 23.1 mL/min (90-130); Glucose 137 mg/dL (65-115); Magnesium 2.6 mg/dL (1.7-2.3); Osmolality Calculated 281 mOsm/kg (285-295); Phosphorus 3.5 mg/dL (2.5-4.5); Potassium 3.2 mmol/L (3.5-5.1); Sodium 135 mmol/L (136-145); Total Bilirubin 2.8 mg/dL (0.15-1.2); Total Protein 7.2 g/dL (6.6-8.7)
[2020-02-11 06:40] LABS: Glucose Point of Care 119 mg/dL (70-110)
--- NOTE | 2020-02-11 09:48 | PC.NURSE ---
Spoke with patient in length regarding transfer to [facility] for treatment. Patient states I've made up my mind I want to go home to my family and enjoy the time I have left with them. [facility] admissions notified of patiets decision.
[2020-02-11] MEDS: cefTRIAXone 1,000 MG in sodium chloride 0.9% (plus) 50 ML 100 MG IV (10:21)
[2020-02-11] MEDS: lactulose oral liq 20 gm/30 mL UDC 30 GM PO ×2 (10:23→15:15)
[2020-02-11] MEDS: insulin glargine 100 units/1 mL 30 UNIT SUBCUT (10:25)
[2020-02-11] MEDS: liothyronine 5 mcg Tablet 10 MCG PO ×2 (10:26→17:46)
[2020-02-11] MEDS: midodrine 5 mg TABLET 7.5 MG PO ×3 (10:27→22:35)
[2020-02-11] MEDS: propranolol 20 mg Tablet PO ×3 (10:28→22:33)
[2020-02-11] MEDS: thiamine 100 mg Tablet PO (10:29)
[2020-02-11] MEDS: pantoprazole DR 40 mg Tablet PO (10:29)
[2020-02-11] MEDS: venlafaxine ER (24HR) 75 mg Capsule PO (10:29)
[2020-02-11] MEDS: potassium chloride ER 10 mEq Tablet PO ×2 (10:31→17:46)
[2020-02-11] MEDS: levothyroxine 112 mcg Tablet PO (10:32)
[2020-02-11] MEDS: levothyroxine 25 mcg Tablet PO (10:32)
[2020-02-11 10:57] LABS: Glucose Point of Care 254 mg/dL (70-110)
--- NOTE | 2020-02-11 12:39 | PM.PN ---
Subjective Subjective: Interval history: This morning patient was examined, he sitting up in a chair, no abdominal pain, he tells me that he urinated quite frequently last night, no nausea, no vomiting, no lightheadedness, no dizziness, patient still wants to proceed to hospice, will have hospice come by and evaluate patient Medications: Reviewed: Yes Vitals/I&O/Wt Last Vital Signs Temp 98.2 F 02/11/20 11:14 Pulse 66 02/11/20 11:14 Resp 18 02/11/20 11:14 BP 105/58 02/11/20 11:14 Pulse Ox 98 02/11/20 11:14 02/10/20 02/11/20 02/11/20 22:59 06:59 14:59 Intake Total 360 / 970 200 / 1170 360 / 360 Balance 360 / 470 200 / 670 360 / 360 Physical Exam Const: COMMON NORMALS: no acute distress and patient oriented x3 HENMT: COMMON NORMALS: normocephalic HEAD & SCALP: normocephalic Neck/C-Spine: COMMON NORMALS: no JVD Resp: COMMON NORMALS: normal respiratory effort, No retractions, No use of accessory muscles and clear to auscultation bilaterally AUSCULTATION: clear to auscultation bilaterally Cardio: COMMON NORMALS: no JVD, regular rate, regular rhythm, S1 normal heart sound present and S2 normal heart sound present RATE: regular rate RHYTHM: regular rhythm HEART SOUNDS: S1 normal heart sound present and S2 normal heart sound present GI: COMMON NORMALS: Soft to palpation, non-tender, no masses and no bruits INSPECTION: Yes abdominal distension AUSCULTATION: Yes normoactive bowel sounds PALPATION: Yes Soft to palpation Extremity: COMMON NORMALS: capillary refill normal, no clubbing, cyanosis or edema, no calf tenderness and no pedal edema Neuro: COMMON NORMALS: patient oriented x3 Psych: COMMON NORMALS: mental status grossly normal Data : 02/11/20 00:54 02/11/20 00:54 Micro: Microbiology 02/07/20 10:30 Gram Stain - Final Peritoneal Fluid Anaerobic Culture - Preliminary Body Fluid Culture - Final A&P Assessment and plan (1) Decompensated hepatic cirrhosis: Status: Acute (2) Abdominal ascites: Status: Acute Qualifiers: Ascites type: other type Qualified Code(s): R18.8 - Other ascites (3) Acute kidney injury superimposed on chronic kidney disease: Status: Acute (4) Hepatic encephalopathy: Status: Acute (5) Hyperglycemia due to type 2 diabetes mellitus: Status: Acute Qualifiers: Diabetes mellitus rn long term care insulin use: with snf use Qualified Code(s): E11.65 - Type 2 diabetes mellitus with hyperglycemia; Z79.4 - FPC (current) use of insulin (6) Chronic kidney disease: Status: Acute Qualifiers: Chronic kidney disease stage: stage 4 (severe) Qualified Code(s): N18.4 - Chronic kidney disease, stage 4 (severe) (7) Right upper quadrant pain: Status: Acute (8) Normal anion gap metabolic acidosis: Status: Acute Additional A&P Information # Decompensated liver cirrhosis attributed to Nonalcoholic cirrhosis s/p paracentesis 02/06 with removal of 8L fluid abdomen is slightly distended today, no complaints of abdominal pain, will hold off on paracentesis cell count <250, unlikely SBP, continuing CTX however as patient on ppx cipro as outpatient Meld score 30, 3-month mortality 52.6. Serum sodium 135, INR 1.94, bilirubin 2.8, creatinine 2.9 Patient has an appointment for TIPS through Dr. Vargas's office, and [facility], however is not a candidate for TIPS given hepatorenal syndrome Started the process for transfer to [facility], patient was accepted by sheet manufacturing supervisor Dr. Arana, as we do not have a sheet manufacturing supervisor, there is other options available to the patient, and they could start the process for liver transplant, as he is young age of 49 However patient changed his mind, had extensive discussion with patient and family, after discussing risk and benefits, patient proceeded to home hospice, home hospice consulted resume propranolol 20mg TID at home dosing neurochecks, seizure precautions, vitals every 4 hours Hepatorenal syndrome Worsening creatinine 2.9, urine output lackluster 500, no charted hypotensive episodes Patient has been getting albumin albumin to 50 g every 12 hours midodrine 7.5 mg 3 times daily octreotide 100 mcg every 8 hours Nephrology consult canceled as patient is going on to hospice Patient declined transfer to [facility] for further intervention, and consideration for possible liver transplant, wants to go home with hospice # Anasarca, ascites Stop spirinolactone given worsening renal function Discontinue Lasix given worsening kidney function # Hepatic encephalopathy Ammonia elevated at 67 lactulose every 2 hrs- titrate to 4 to 6 BM per day continue rifaximin # Hyperglycemia without DKA, NAGMA lantus 60units at bedtime, add lantus 30 units in the day Continue novolog to high dose sliding scale Will adjust as needed #Hypervolemic hyponatremia full code, in case of cardiac arrest does not want to prolong resuscitative measures if there is no meaningful response SCDs for DVT prophylaxis Consistent carbohydrate diet Attestations Medical Necessity Statement*: Hospitalization for decompensated liver failure, hepatorenal syndrome, transitioning to home hospice Coding Level of Care Code Acute Upscale Security Officer for [facility] Fwd Diagnoses Decompensated hepatic cirrhosis K72.90; K74.60 Abdominal ascites R18.8 Ascites type: other type Acute kidney injury superimposed on chronic kidney disease N17.9; N18.9 Hepatic encephalopathy K72.90 Hyperglycemia due to type 2 diabetes mellitus E11.65; Z79.4 Diabetes mellitus rn long term care insulin use: with snf use Chronic kidney disease N18.4 Chronic kidney disease stage: stage 4 (severe) Right upper quadrant pain R10.11 Normal anion gap metabolic acidosis E87.2
--- NOTE | 2020-02-11 13:17 | PC.NURSE ---
I entered the room to do my hourly rounding and the patient is up and ambulating in his room. walking to the sink for a glass of water.
[2020-02-11 17:13] LABS: Glucose Point of Care 298 mg/dL (70-110)
[2020-02-11] MEDS: insulin glargine 100 units/1 mL 60 UNIT SUBCUT (22:31)
[2020-02-11 22:39] LABS: Glucose Point of Care 295 mg/dL (70-110)
[2020-02-12] VITALS: BP 147/67; PULSE 68; RESP 20; TEMP 36.7; O2SAT 97
[2020-02-12] MEDS: octreotide 100 mcg/mL SDV SUBCUT (01:42)
[2020-02-12 04:00] VITALS: BP 102/51; PULSE 70; RESP 20; TEMP 37.2; O2SAT 95
[2020-02-12 05:27] LABS: Basophils # 0.1 10^3/uL (0.0-0.1); Basophils % 0.8 %; Eosinophils # 0.4 10^3/uL (0.0-0.8); Eosinophils % 4.9 %; Hematocrit 27.4 % (42.0-52.0); Lymphocytes # 0.8 10^3/uL (0.8-4.8); Lymphocytes % 11.1 %; Mean Corpuscular HGB Conc 32.8 g/dL (30.0-36.0); Mean Corpuscular Hemoglobin 32.3 pg (28.0-34.0); Mean Corpuscular Volume 98.2 fL (80-94); Monocytes # 0.9 10^3/uL (0.2-0.9); Monocytes % 11.9 %; Neutrophils # 5.21 10^3/uL (1.8-7.7); Neutrophils % 71.2 %; Nucleated Red Blood Cells % 0 %; Platelet Count 77 10^3/cmm (130-400); Red Blood Count 2.79 10^6/uL (4.1-5.3); Red Cell Distribution Width 14.3 % (12.1-15.1); White Blood Count 7.3 10^3/uL (4.0-10.0)
[2020-02-12 05:45] LABS: Ammonia 77 umol/L (16-60)
[2020-02-12 05:46] LABS: Alanine Aminotransferase 30 U/L (0-41); Albumin Level 4.2 g/dL (3.5-5.2); Alkaline Phosphatase 51 IU/L (40-130); Anion Gap 14.3 (5-19); Aspartate Amino Transferase 85 U/L (0-40); Blood Urea Nitrogen 48 mg/dL (6-20); Calcium 9.2 mg/dL (8.5-10.5); Carbon Dioxide 22 mmol/L (22-29); Chloride 102 mmol/L (98-107); Globulin 2.8 g/dL (1.3-4.6); Glomerular Filtration Rate 27.5 mL/min (90-130); Glucose 188 mg/dL (65-115); Magnesium 2.6 mg/dL (1.7-2.3); Osmolality Calculated 283 mOsm/kg (285-295); Potassium 3.3 mmol/L (3.5-5.1); Sodium 135 mmol/L (136-145)
[2020-02-12 06:19] LABS: INR 2.03 (0.8-1.2)
[2020-02-12 06:42] LABS: Glucose Point of Care 179 mg/dL (70-110)
[2020-02-12 07:35] VITALS: BP 121/71; PULSE 69; RESP 18; TEMP 36.8; O2SAT 96
[2020-02-12] MEDS: cefTRIAXone 1,000 MG in sodium chloride 0.9% (plus) 50 ML 100 MG IV (09:04)
[2020-02-12] MEDS: insulin glargine 100 units/1 mL 30 UNIT SUBCUT (09:04)
[2020-02-12] MEDS: midodrine 5 mg TABLET 7.5 MG PO (09:05)
[2020-02-12] MEDS: thiamine 100 mg Tablet PO (09:05)
[2020-02-12] MEDS: levothyroxine 25 mcg Tablet PO (09:06)
[2020-02-12] MEDS: levothyroxine 112 mcg Tablet PO (09:06)
[2020-02-12] MEDS: propranolol 20 mg Tablet PO (09:06)
[2020-02-12] MEDS: liothyronine 5 mcg Tablet 10 MCG PO (09:06)
[2020-02-12] MEDS: venlafaxine ER (24HR) 75 mg Capsule PO (09:07)
[2020-02-12] MEDS: potassium chloride ER 10 mEq Tablet PO (09:07)
[2020-02-12] MEDS: pantoprazole DR 40 mg Tablet PO (09:07)
[2020-02-12 10:44] LABS: Glucose Point of Care 236 mg/dL (70-110)
--- NOTE | 2020-02-12 10:56 | PC.SOCIAL ---
IMM Update Pg 2 of IMM explained to patient and , copy provided.
--- NOTE | 2020-02-12 10:56 | PM.DCS ---
Discharge Providers Date of Admission: 02/07/20 16:42 Date of Discharge: February 12, 2020 Attending Provider at Admission: Mikal Farley MD Attending Provider at Discharge: Shayne Garcia MD Primary Care Provider: Penny Vail MD Diagnoses at Discharge Discharge Diagnosis (1) Decompensated hepatic cirrhosis: Status: Acute (2) Abdominal ascites: Status: Acute Qualifiers: Ascites type: other type Qualified Code(s): R18.8 - Other ascites (3) Acute kidney injury superimposed on chronic kidney disease: Status: Acute (4) Hepatic encephalopathy: Status: Acute (5) Hyperglycemia due to type 2 diabetes mellitus: Status: Acute Qualifiers: Diabetes mellitus shelter insulin use: with shelter use Qualified Code(s): E11.65 - Type 2 diabetes mellitus with hyperglycemia; 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.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 (6) Chronic kidney disease: Status: Acute Qualifiers: Chronic kidney disease stage: stage 4 (severe) Qualified Code(s): N18.4 - Chronic kidney disease, stage 4 (severe) (7) Right upper quadrant pain: Status: Acute (8) Normal anion gap metabolic acidosis: Status: Acute Reason for Visit Reason for Visit: had parasyntesis wed/ explained to nurse Hospital Course Discharge Summary: This is a 49-year-old male with a past medical history of nonalcoholic liver cirrhosis, history of portal hypertension, esophageal varices, hepatic encephalopathy on lactulose and rifaximin, currently under investigation for TIPS procedure, history of recurrent ascites with recurrent paracentesis, history of spontaneous bacterial peritonitis on ciprofloxacin, follows up with Dr. Vargas at [facility], history of hypothyroidism, history of insulin-dependent type 2 diabetes mellitus, who presents to [facility] due to increased abdominal distention Patient was admitted to [facility] due to decompensated liver cirrhosis secondary to [place], was admitted to the general medical floors, received paracentesis with removal of 8 L of fluid, had evaluation for spontaneous bacterial bacterial peritonitis, his PMNs was less than 250, cultures were unremarkable, but kept on ceftriaxone, his ammonia levels did trend up to 195, requiring titration of lactulose, rifaximin was continued. Patient's meld score was 30, trending up, 3-month mortality was over 50%. Patient also developed hepatorenal syndrome during his hospitalization, creatinine progressively worsened to 3.4, urine output decreased and was lackluster. Patient was started on albumin, midodrine, octreotide. No pressors were required, as patient was not hypotensive. With interventions, urine output improved, creatinine down trended to 2.5. Given patient's worsening meld score, hepatorenal syndrome patient was given the option to be transferred to [facility] for the need for hepatology, and consideration for liver transplant. I reached out to patient's material coordinator at [facility], to see if he would be a candidate for TIPS, however his material coordinator thought he would not be ideal candidate at this point, and that it was relatively contraindicated currently. In addition, his material coordinator felt that it would be prudent for patient to be considered for liver transplant, and that he should be transferred to a transplant center. I had started the process for patient to be transferred to [facility], he was a septic by Dr. Alvares, hepatology, as at [facility] we do not have a gastroenterology specialist, and as he would be a candidate at least for consideration for liver transplant given his young age. However patient changed his mind, he stated that he wanted to be around family, he wanted to go home with his family on hospice. After an extensive discussion with patient, his , his son at bedside multiple times, discussion of the risks and benefits, patient and family voiced understanding, all questions answered. Patient agreed to proceed to home with hospice, I confirmed this multiple times, patient was discharged home with hospice. Physical Exam Const: COMMON NORMALS: no acute distress and patient oriented x3 HENMT: COMMON NORMALS: normocephalic HEAD & SCALP: normocephalic Neck/C-Spine: COMMON NORMALS: no JVD Resp: COMMON NORMALS: normal respiratory effort, No retractions, No use of accessory muscles and clear to auscultation bilaterally AUSCULTATION: clear to auscultation bilaterally Cardio: COMMON NORMALS: no JVD, regular rate, regular rhythm, S1 normal heart sound present and S2 normal heart sound present RATE: regular rate RHYTHM: regular rhythm HEART SOUNDS: S1 normal heart sound present and S2 normal heart sound present GI: COMMON NORMALS: Normal to inspection, nondistended, normoactive bowel sounds present and Soft to palpation INSPECTION: Yes abdominal distension AUSCULTATION: Yes normoactive bowel sounds PALPATION: Yes Soft to palpation Extremity: COMMON NORMALS: capillary refill normal, no clubbing, cyanosis or edema, no calf tenderness and no pedal edema Neuro: COMMON NORMALS: patient oriented x3 Psych: COMMON NORMALS: mental status grossly normal Discharge Data Data Completed and Pending: Completed Studies During Hospitalization Category Date Time Status [place] paracentesis [place] bd w [id number] Routine Ultrasound 02/07/20 10:00 Completed Pending at discharge Category Date Time Status Ammonia AM LABS Lab 02/13/20 04:00 Ordered Anaerobic Culture Routine Lab 02/07/20 10:30 Results Body Fluid Cultur e & GS Routine Lab 02/07/20 10:30 Results Complete Blood Co unt w/Auto AM LABS Lab 02/13/20 04:00 Ordered Comprehensive Met abolic Panel AM LA BS Lab 02/13/20 04:00 Ordered Magnesium AM LABS Lab 02/13/20 04:00 Ordered Phosphorus AM LAB S Lab 02/13/20 04:00 Ordered Prothrombin Time INR AM LABS Lab 02/13/20 04:00 Ordered Labs from last 24 hours 02/12/20 02/12/20 02/12/20 10:39 06:21 05:10 WBC RBC Hgb Hct MCV MCH MCHC RDW Plt Count MPV Neut % (Auto) Lymph % (Auto) [place] % (Auto) Eos % (Auto) Baso % (Auto) Neut # (Auto) Lymph # (Auto) [place] # (Auto) Eos # (Auto) Baso # (Auto) Nucleated RBC % (a uto) Nucleated RBCs # PT INR Sodium Potassium Chloride Carbon Dioxide Anion Gap BUN Creatinine GFR Calculation Glucose POC Glucose 236 179 Calculated Osmolal ity Calcium Phosphorus Magnesium Total Bilirubin AST ALT Alkaline Phosphata se Ammonia 77 H Total Protein Albumin Globulin 02/12/20 02/12/20 02/12/20 05:10 05:10 05:10 WBC 7.3 RBC 2.79 L Hgb 9.0 L Hct 27.4 L MCV 98.2 H MCH 32.3 MCHC 32.8 RDW 14.3 Plt Count 77 L MPV 11.0 H Neut % (Auto) 71.2 Lymph % (Auto) 11.1 [place] % (Auto) 11.9 Eos % (Auto) 4.9 Baso % (Auto) 0.8 Neut # (Auto) 5.21 Lymph # (Auto) 0.8 [place] # (Auto) 0.9 Eos # (Auto) 0.4 Baso # (Auto) 0.1 Nucleated RBC % (a uto) 0 Nucleated RBCs # 0.0 PT 23.70 H INR 2.03 H Sodium 135 L Potassium 3.3 L Chloride 102 Carbon Dioxide 22 Anion Gap 14.3 BUN 48 H Creatinine 2.5 H GFR Calculation 27.5 L Glucose 188 H POC Glucose Calculated Osmolal ity 283 L Calcium 9.2 Phosphorus 3.0 Magnesium 2.6 H Total Bilirubin 3.0 H AST 85 H ALT 30 Alkaline Phosphata se 51 Ammonia Total Protein 7.0 Albumin 4.2 Globulin 2.8 02/11/20 02/11/20 02/11/20 20:14 17:04 10:53 WBC RBC Hgb Hct MCV MCH MCHC RDW Plt Count MPV Neut % (Auto) Lymph % (Auto) [place] % (Auto) Eos % (Auto) Baso % (Auto) Neut # (Auto) Lymph # (Auto) [place] # (Auto) Eos # (Auto) Baso # (Auto) Nucleated RBC % (a uto) Nucleated RBCs # PT INR Sodium Potassium Chloride Carbon Dioxide Anion Gap BUN Creatinine GFR Calculation Glucose POC Glucose 295 298 254 Calculated Osmolal ity Calcium Phosphorus Magnesium Total Bilirubin AST ALT Alkaline Phosphata se Ammonia Total Protein Albumin Globulin Vitals: Last Vital Signs Temp 98.3 F 02/12/20 07:35 Pulse 69 02/12/20 07:35 Resp 18 02/12/20 07:35 BP 121/71 02/12/20 07:35 Pulse Ox 96 02/12/20 07:35 Discharge Plan Discharge Patient Disposition: Home Condition: Stable Prescriptions: Continued lactulose 20 gram/30 mL Solution 30 g PO TID Qty: 237 RF: 0 potassium chloride 10 mEq Capsule, Extended Release 10 meq PO BID RF: 0 cetirizine 10 mg Tablet 10 mg PO DAILY RF: 0 thiamine HCl (vitamin B1) [Vitamin B-1] 100 mg Tablet 100 mg PO DAILY RF: 0 ciprofloxacin HCl 500 mg Tablet 500 mg PO DAILY RF: 0 liothyronine 5 mcg Tablet 5 mcg PO BID RF: 0 pantoprazole 40 mg Tablet,Delayed Release (Dr/Ec) 40 mg PO BID RF: 0 gabapentin 300 mg Capsule 300 mg PO TID RF: 0 hydroxyzine HCl 25 mg Tablet 25 mg PO Q12H PRN (Reason: Anxiety) RF: 0 ergocalciferol (vitamin D2) [Vitamin D2] 1,250 mcg (50,000 unit) Capsule 1,250 mcg PO Q7D RF: 0 Xifaxan 550 mg Tablet 550 mg PO BID RF: 0 Tresiba FlexTouch U-200 200 unit/mL (3 mL) Insulin Pen 60 unit SUBCUT DAILY RF: 0 levothyroxine 137 mcg Tablet 137 mcg PO DAILY RF: 0 venlafaxine [Effexor XR] 75 mg Capsule,Extended Release 24hr 37.5 mg PO DAILY RF: 0 propranolol 20 mg Tablet 20 mg PO TID RF: 0 insulin aspart U-100 [Novolog Flexpen U-100 Insulin] 100 unit/mL (3 mL) Insulin Pen 22 unit SUBCUT TID RF: 0 oxycodone 20 mg Tablet 20 mg PO TID PRN (Reason: Pain) RF: 0 Victoza 2-David 0.6 mg/0.1 mL (18 mg/3 mL) Pen Injector 0.6 mg SUBCUT DAILY RF: 0 Nystop 100,000 unit/gram powder 1 applic TOPICAL BID RF: 0 Jardiance 10 mg tablet 10 mg PO DAILY RF: 0 Held furosemide 40 mg Tablet See Rx Instructions .ROUTE .COMPLEX RF: 0 Hold Instructions: Resume on 02/19/20. spironolactone 100 mg Tablet 100 mg PO DAILY RF: 0 Hold Instructions: Resume on 02/19/20. Discharge Orders: Discharge Order (Routine); Ordered 02/12/20 Ordered By: Shayne Garcia Referrals: [facility]) [Outside] Penny Vail MD [Primary Care Provider] - () Discharge Diet: Regular Discharge Activity: Resume usual activity Patient Instructions: Hospice Care (GEN) Discharge Attestations Time Spent in Discharge Care*: less than 30 min Status at Discharge: Cognitive status at discharge: cognitively intact, Behavioral status at discharge: cooperative and dependent in ADL's, Quality Metrics Clinical Quality Measures During this hospital stay, did patient experience: None Coding Level of Care Code Acute Inside Trucker for Chg Fwd Diagnoses Decompensated hepatic cirrhosis K72.90; K74.60 Abdominal ascites R18.8 Ascites type: other type Acute kidney injury superimposed on chronic kidney disease N17.9; N18.9 Hepatic encephalopathy K72.90 Hyperglycemia due to type 2 diabetes mellitus E11.65; Z79.4 Diabetes mellitus shelter insulin use: with shelter use Chronic kidney disease N18.4 Chronic kidney disease stage: stage 4 (severe) Right upper quadrant pain R10.11 Normal anion gap metabolic acidosis E87.2
[2020-02-12 11:12] VITALS: BP 136/74; PULSE 65; RESP 18; TEMP 36.8; O2SAT 98
[2020-02-12 11:53] VITALS: BP 136/74; PULSE 65; RESP 18; TEMP 36.8; O2SAT 98
== END 2020-02-12 12:35 | disposition hospice, home (50) | DRG 432 ==
LOC: ER 03:25 → MEDSURG 03:34
PROVIDERS: Physician Assistant; Student in an Organized Health Care Education/Training Program; Admitting Provider Internal Medicine; PCP Internal Medicine; Visit Provider Family Medicine
DX: K74.60 Unspecified cirrhosis of liver (principal); K76.7 Hepatorenal syndrome; R18.8 Other ascites; K76.6 Portal hypertension; N18.4 Chronic kidney disease, stage 4 (severe); N17.9 Acute kidney failure, unspecified; E87.1 Hypo-osmolality and hyponatremia; E87.2 Acidosis; E11.65 Type 2 diabetes mellitus with hyperglycemia; E11.42 Type 2 diabetes mellitus with diabetic polyneuropathy; E11.22 Type 2 diabetes mellitus with diabetic chronic kidney disease; I12.9 Hypertensive chronic kidney disease with stage 1 through stage 4 chronic kidney disease, or unspecified chronic kidney disease; J44.9 Chronic obstructive pulmonary disease, unspecified; I25.10 Atherosclerotic heart disease of native coronary artery without angina pectoris; M19.90 Unspecified osteoarthritis, unspecified site; F32.9 Major depressive disorder, single episode, unspecified; Z87.891 Personal history of nicotine dependence; Z87.11 Personal history of peptic ulcer disease; E78.5 Hyperlipidemia, unspecified; E03.9 Hypothyroidism, unspecified; G47.33 Obstructive sleep apnea (adult) (pediatric); K75.81 Nonalcoholic steatohepatitis (NASH); Z79.4 Long term (current) use of insulin; K72.90 Hepatic failure, unspecified without coma
CPT/HCPCS: 12345; 36415; 36416; 36600; 49083; 80051; 80053; 80500; 81001; 82042; 82140; 82150; 82465; 82810; 82945; 82947; 82962; 83615; 83690; 83735; 83986; 84075; 84100; 84157; 84315; 84439; 84443; 84478; 84481; 84484; 84560; 85007; 85025; 85027; 85610; 85730; 87015; 87040; 87070; 87075; 87086; 87116; 87205; 87206; 87801; 88112; 88305; 89050; 93005; 94660; 96372; 96375; 99283; G0378; J0696; J1815 ×2; J1940; J2270; J2354; J2405; P9047

== ENCOUNTER 2020-03-06 13:21 | Outpatient (CLI) | payer OTHER, MEDICAID, SELFPAY ==
--- NOTE | 2020-03-06 13:38 | US_ITS ---
WS: [id number] ULTRASOUND-GUIDED THERAPEUTIC AND DIAGNOSTIC PARACENTESIS Procedure, risks, and complications have been explained to the patient. Consent is obtained. Utilizing aseptic technique and 1% buffered lidocaine, a small dermatome was made through which a 5 F rench Yueh catheter was inserted. Approximately 8000 ml of yellow opaque peritoneal fluid was obtaine d without difficulty. No complications encountered. Pleural fluid specimen collected for analysis as requested. US/US paracentesis abd w [id number] IMPRESSION: Uncomplicated paracentesis yielding 8000 ml of peritoneal fluid. Pleural fluid specimen collected as requested.
== END 2020-03-06 13:22 | disposition home or self-care (01) ==
PROVIDERS: PCP Internal Medicine; Visit Provider Nurse Practitioner Family
DX: R18.8 Other ascites (principal)
CPT/HCPCS: 49083

== ENCOUNTER → 2020-03-13 10:19 | Day surgery (SDC) | payer OTHER, SELFPAY ==
[2020-03-13 10:42] VITALS: BP 140/59; PULSE 75; RESP 18; TEMP 36.3; O2SAT 92; BMI 42.5
--- NOTE | 2020-03-13 11:08 | US_ITS ---
WS: [id number] ULTRASOUND-GUIDED PARACENTESIS CLINICAL INFORMATION: ascites COMPARISON: None. Procedure Informed consent: The risks, benefits, and alternatives of the procedure were discussed with the cole ent. Verbal and written consent was obtained. Timeout: A timeout was performed to confirm the correct patient, procedure, and site. Preparation: A suitable skin site was identified. The patient was prepped and draped in usual sterile fashion. Lidocaine 1% was used for local anesthesia. Catheter: 4 [place] One-step Yueh catheter. Side: Right Lower quadrant. Fluid Volume: 8000 ml Color: Clear yellow DISPOSITION: Discarded safely. Complications: None. Patient disposition: Discharged from the department in stable condition. US/US paracentesis abd w [id number] IMPRESSION: Uncomplicated ultrasound-guided paracentesis. Removal of 8000 cc
== END ==
PROVIDERS: PCP Internal Medicine; Visit Provider Nurse Practitioner Family
DX: R18.8 Other ascites (principal)
CPT/HCPCS: 49083

== ENCOUNTER 2020-04-03 11:00 | Outpatient (RCR) | payer OTHER, SELFPAY ==
[2020-03-20 12:53] VITALS: BP 104/41; PULSE 65; RESP 18; TEMP 36.3; O2SAT 98; BMI 42.5
--- NOTE | 2020-03-20 12:57 | US_ITS ---
WS: [id number] ULTRASOUND-GUIDED PARACENTESIS CLINICAL INFORMATION: ascites COMPARISON: None. Procedure Informed consent: The risks, benefits, and alternatives of the procedure were discussed with the cole ent. Verbal and written consent was obtained. Timeout: A timeout was performed to confirm the correct patient, procedure, and site. Preparation: A suitable skin site was identified. The patient was prepped and draped in usual sterile fashion. Lidocaine 1% was used for local anesthesia. Catheter: 4 [place] One-step Yueh catheter. Side: Left Lower quadrant. Fluid Volume: 4500 ml Color: Clear yellow DISPOSITION: Discarded safely. Complications: None. Patient disposition: Discharged from the department in stable condition. US/US paracentesis abd w [id number] IMPRESSION: Uncomplicated ultrasound-guided paracentesis. Removal of 4500 cc
== END 2020-04-18 23:59 | disposition home or self-care (01) ==
LOC: RAD 11:00
PROVIDERS: PCP Internal Medicine; Visit Provider Nurse Practitioner Family
DX: R18.8 Other ascites (principal)
CPT/HCPCS: 49083